=== PATIENT | male | born 1935 | race Caucasian/White ===

== ENCOUNTER 2017-02-23 13:50 | Emergency (ER) | payer OTHER, BC ==
[~2017-02-23] VITALS: Ht 165.1 cm; Wt 92.4 kg
[~2017-02-23 13:50] MED LIST: ASPI81TA21 PO; CRS/10 PO; DOXA2TAB PO; ENAL1TAB33 PO; ESOM40GR PO; FISHOIL PO; NSP/500 PO
[2017-02-23 13:58] VITALS: TEMP 36.4; Ht 165.1 cm; Wt 92.4 kg
[2017-02-23] MEDS ORDERED: DiphenhydrAMINE HCL 50 MG/ML VIAL IV STA (14:24)
[2017-02-23] MEDS ORDERED: RANITIDINE HCL 50 MG/100 ML D5W IV STA (14:24)
[2017-02-23] MEDS ORDERED: SODIUM CHLORIDE 0.9% 1000ML 1,000 ML IV STA (14:24)
[2017-02-23 14:26] VITALS: O2SAT 98
--- NOTE | 2017-02-23 14:54 | EMERGENCY ROOM VISIT NOTE ---
ED Visit Note First contact with patient: 14:15 I have personally seen and evaluated the patient with the PA. I agree with the diagnosis and management decisions and have been personally involved in the case. Please see MARCE Mccracken's notes for further details of the history, physical and visit.
--- NOTE | 2017-02-23 16:50 | EMERGENCY ROOM VISIT NOTE ---
ED Visit Note First contact with patient: 14:15 CHIEF COMPLAINT: Allergic reaction HISTORY OF PRESENT ILLNESS: This 81-year-old male patient presents to the emergency department after they developed sudden onset of redness and itching on the left forearm after being stung by a hornet at 1 PM today. 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 He did not use his EpiPen today. The patient does not have swelling of the face and lips and does not have a sensation of swelling in the throat. The patient has not had shortness of breath. Has had previous reactions and like this before, but states this time is not as bad because he came straight to the ER and did not wait. The patient has tried no medications prior to arrival. There has been no change in the patient's soaps, detergents, foods, medications, or other environmental factors. REVIEW OF SYSTEMS: A review of systems was performed with positives and pertinent negatives listed in the history of present illness. All other systems were reviewed and are negative. ALLERGIES: See chart MEDICATIONS: See chart PMH: See chart SOCIAL HISTORY: , lives with . Denies tobacco, alcohol, illicit drug use. PHYSICAL EXAM:VITALS: Vitals are noted on the nurse's note and reviewed by myself. Vital signs stable. GENERAL: Pleasant and cooperative, in no acute distress, nondiaphoretic, well- developed well-nourished. THROAT: No pharyngeal edema or injection, no exudates or tonsillar hypertrophy. Airway patent. LUNGS: Clear to auscultation and breath sounds equal, no wheezes, rales, stridor, or rhonchi. EYES: PERRLA, EOMI, no discharge or injection. NEUROLOGICAL: Alert and oriented to person, place, and time. Normal sensation to light and sharp touch. HEART: Regular rate without murmurs, ectopy, gallops, or rubs. SKIN: There is a bee sting site noted to the left anterior forearm with surrounding erythema and edema, nontender to palpation, approximately 10 cm x 7 cm, no drainage. The lips are not swollen. There is no periorbital swelling. No other hives or rashes noted to the skin. EMERGENCY DEPARTMENT COURSE: I examined the patient. Differential diagnosis includes allergic reaction, hives, anaphylaxis. The patient was given IV access , treated with IV fluid bolus, IV Benadryl, and IV ranitidine. On reassessment , the patient felt much improved and was noted to have full resolution of erythema on the left forearm. He continues to have a patent airway with no complaints of shortness of breath, facial or oral swelling, or throat tightness. The patient was discharged home in stable condition with plans for close PCP follow-up and strict return precautions, he verbalized understanding. Patient was discussed with Dr. Alicea, who agreed with my assessment and plan. Problem List Medical Problems: (1) Hyperlipemia Status: Chronic (2) Hypertension Status: Chronic Current/Historical Medications Scheduled Aspirin Enteric Coated (Ecotrin Or Generic), 162 MG PO DAILY Doxazosin Mesylate (Cardura), 2 MG PO DAILY Enalapril Maleate (Vasotec), 5 MG PO DAILY Esomeprazole Magnesium (Nexium), 40 MG PO DAILY Fish Oil ([place]-3), 2 CAP PO BID Rosuvastatin Calcium (Crestor), 10 MG PO DAILY Allergies Coded Allergies: BEE STING (Unverified Allergy, Severe, SWELLING, 02/23/17) Wasp (Unverified Allergy, Unknown, ANAPHYLAXIS, 02/23/17) Vital Signs Date Time Temp Pulse Resp B/P Pulse Ox O2 Delivery O2 Flow Rate FiO2 02/23/17 14:40 61 16 167/79 98 Room Air 02/23/17 14:37 64 02/23/17 14:26 98 Room Air 02/23/17 14:25 98 Room Air 02/23/17 13:58 36.4 66 20 177/82 95 Room Air Medications Administered Medications (Trade) Dose Ordered Sig/Hugo Route Start Time Stop Time Status Last Admin Dose Admin Ranitidine HCl 50 mg 50 mg NOW STAT IV 02/23/17 14:24 02/23/17 14:28 DC 02/23/17 14:44 50 MG Sodium Chloride (Nss 1000ml) 1,000 ml @ 999 mls/hr Q1H1M STAT IV 02/23/17 14:24 02/23/17 15:24 DC 02/23/17 14:43 999 MLS/HR Diphenhydramine HCl (Benadryl Inj) 50 mg NOW STAT IV 02/23/17 14:24 02/23/17 14:28 DC 02/23/17 14:43 50 MG Departure Information Impression Primary Impression: Allergic reaction to bee sting Dispostion Home / Self-Care Condition GOOD Referrals Trevor Kumar M.D. (PCP) Patient Instructions ED Allergic Reaction Local Other, My [facility] Additional Instructions Continue to take Benadryl 50 mg every 6 hrs as needed for itching/rash. Keep cool - no hot showers. Follow-up with your family doctor in the next few days to be reevaluated, and also to have your blood pressure rechecked, sooner if symptoms persist. Please return to the ER for any worsening symptoms, including chest pain or chest tightness, shortness of breath, wheezing, throat tightness, facial or oral swelling, severe dizziness or passing out, if you break out in hives or rash all over, fever/chills, or any other concerns.
[2017-02-23 17:14] VITALS: BP 171/87; PULSE 56; O2SAT 97
== END 2017-02-23 17:15 | disposition home or self-care (01) ==
LOC: C.EDB 13:52 → C.EDD 17:15
DX: T63.441A Toxic effect of venom of bees, accidental (unintentional), initial encounter (principal); Z91.030 Bee allergy status; E78.5 Hyperlipidemia, unspecified; I10 Essential (primary) hypertension; Z79.82 Long term (current) use of aspirin; Z79.899 Other long term (current) drug therapy

== ENCOUNTER 2017-10-18 16:39 | Inpatient (IN) | payer OTHER, BC ==
[~2017-10-18] VITALS: Ht 165.1 cm; Wt 93.0 kg
[~2017-10-18 16:39] MED LIST changes: -NSP/500 PO
[2017-10-18] MEDS ORDERED: CHOL1000 PO (17:01)
[2017-10-18] MEDS ORDERED: FURO-85 PO (17:01)
[2017-10-18] MEDS ORDERED: SODIUM CHLORIDE 0.9% 1000ML 1,000 ML IV STA ×2 (17:04)
--- NOTE | 2017-10-18 17:27 | DIAGNOSTIC IMAGING REPORT ---
CHEST ONE VIEW PORTABLE HISTORY: 81 years-old Male EVALUATE ALTERED MENTAL STATUS/WEAKNESS acute altered mental status COMPARISON: CT 01/17/2012 TECHNIQUE: Portable AP view of the chest FINDINGS: Cardiac silhouette is moderately enlarged, unchanged. Atherosclerosis and tortuosity of the aorta. No pneumothorax, pleural effusion, focal airspace consolidation or overt pulmonary edema. Degenerative changes are seen within the shoulders and spine. IMPRESSION: No acute process. The above report was generated using voice recognition software. It may contain grammatical, syntax or spelling errors. Electronically signed by: Gui Manzo M.D. 10/18/2017 5:26 PM Dictated Date/Time: 10/18/2017 5:25 PM
[2017-10-18 17:42] LABS: EOS % 0.5 %; EOS ABS # 0.04 K/uL (0-0.5); HEMATOCRIT 29.7 % (42-52); HEMOGLOBIN 10.6 g/dL (14.0-18.0); IG# 0.02 K/uL (0.00-0.02); LYMPH % 11.1 %; LYMPH ABS # 0.88 K/uL (1.2-3.4); MEAN CELL VOLUME 90.3 fL (80-100); MEAN CORPUSCULAR HEMOGLOBIN 32.2 pg (25-34); MEAN CORPUSCULAR HGB CONC 35.7 g/dl (32-36); MEAN PLATELET VOLUME 9.4 fL (7.4-10.4); MONO % 6.6 %; MONO ABS # 0.52 K/uL (0.11-0.59); NEUT % 81.5 %; NEUT ABS # 6.47 K/uL (1.4-6.5); PLATELET COUNT 190 K/uL (130-400); RED CELL DISTRIBUTION WIDTH CV 14.3 % (11.5-14.5); RED CELL DISTRIBUTION WIDTH SD 47.2 fL (36.4-46.3); WHITE BLOOD COUNT 7.93 K/uL (4.8-10.8)
[2017-10-18 17:55] LABS: ALBUMIN 3.6 gm/dl (3.4-5.0); CREATININE 1.37 mg/dl (0.60-1.40); POTASSIUM 3.7 mmol/L (3.5-5.1)
[2017-10-18 17:58] LABS: PTT PATIENT 20.6 SECONDS (21.0-31.0)
[2017-10-18 18:06] LABS: TOTAL PROTEIN 6.3 gm/dl (6.4-8.2)
[2017-10-18] MEDS ORDERED: CEFTRIAXONE SOD INJ 1 GM ADDVIAL IV STA ×2 (18:33→19:10)
[2017-10-18] MEDS ORDERED: OPTIRAY 320 IV PRN (19:00)
[2017-10-18] MEDS ORDERED: SODIUM CHLORIDE 0.9% 1000ML 1,000 ML IV SCH (20:02)
[2017-10-18] MEDS ORDERED: ENAL10TA PO (20:11)
[2017-10-18] MEDS ORDERED: ROSU20TA PO (20:11)
[2017-10-18] MEDS ORDERED: HYDR12.56 PO (20:11)
[2017-10-18] MEDS ORDERED: ASCO1CAP3 PO (20:11)
[2017-10-18] MEDS ORDERED: DIPH25CA65 PO (20:11)
[2017-10-18] MEDS ORDERED: EPP3/2 IM (20:11)
--- NOTE | 2017-10-18 20:12 | DIAGNOSTIC IMAGING REPORT ---
(CHEST FOR PE) ANGIO WITH CT DOSE: 571.22 mGy.cm HISTORY: Chest pain dyspnea TECHNIQUE: Multiaxial CT images of the chest were performed following the intravenous administration of contrast to evaluate the pulmonary arteries. Maximal intensity projection images were also obtained. A dose lowering technique was utilized adhering to the principles of ALARA. COMPARISON STUDY: None. FINDINGS: Moderate atherosclerotic change thoracic aorta. No evidence for aneurysm or dissection. Her pulmonary vasculature enhances appropriately. No filling defects. Lungs are clear. Fixed hiatal hernia. Minimal chronic pleural reactive change posterior gastric angles. Instill note is made of several gallstones within the gallbladder neck region. IMPRESSION: 1. No evidence for pulmonary embolus. 2. Lungs are clear. 3. Several gallstones within the gallbladder neck region. The above report was generated using voice recognition software. It may contain grammatical, syntax or spelling errors. Electronically signed by: Kumar Mock M.D. 10/18/2017 8:11 PM Dictated Date/Time: 10/18/2017 8:08 PM
[2017-10-18] MEDS ORDERED: ACETAMINOPHEN 325 MG TAB PO PRN (20:15)
[2017-10-18] MEDS ORDERED: ONDANSETRON INJ 2 MG/ML 2 ML VIAL IV PRN (20:15)
[2017-10-18] MEDS ORDERED: POLYETHYLENE (MIRALAX) 17 GM PACK PO PRN (20:15)
[2017-10-18] MEDS ORDERED: NITROGLYCERIN 0.4 MG SL PER TAB CHARGE SL PRN (20:15)
[2017-10-18] MEDS ORDERED: ALUMINUM/MAGNESIUM/SIMETH (MAALOX MAX) 30 ML UDC PO PRN (20:15)
[2017-10-18 20:58] VITALS: O2SAT 98
[2017-10-18 21:33] VITALS: Ht 165.1 cm; Wt 93.0 kg
[2017-10-18 22:07] VITALS: BP 157/71; PULSE 63; TEMP 36.6; O2SAT 98
--- NOTE | 2017-10-18 22:12 | DIAGNOSTIC IMAGING REPORT ---
VENOUS DOPPLER LWR EXT BILA HISTORY: Pain. Edema. dvt? COMPARISON STUDY: None. FINDINGS: There is normal compressibility, flow, and augmentation within the bilateral lower extremity deep venous systems. IMPRESSION: No DVT within the right or left lower extremity. The above report was generated using voice recognition software. It may contain grammatical, syntax or spelling errors. Electronically signed by: Kumar Mock M.D. 10/18/2017 10:11 PM Dictated Date/Time: 10/18/2017 10:11 PM
--- NOTE | 2017-10-18 22:14 | DIAGNOSTIC IMAGING REPORT ---
GALLBLADDER-ABD LIMITED CLINICAL HISTORY: gallstones. cholecystistyis? Pain. Nausea. TECHNIQUE: Ultrasound COMPARISON STUDY: None FINDINGS: Several small gallstones in the region of the gallbladder neck. Normal gallbladder wall thickness at 2 mm. Common bile duct 5 mm. Fatty infiltration of liver. Poor visibility of the pancreas due to overlying bowel content. Right kidney is negative for hydronephrosis. 3 cm lower pole cyst. IMPRESSION: 1. Several small gallstones. 2. Normal caliber bile ducts. 3. Fatty infiltration of liver. 4. 3 cm lower pole right renal cyst. The above report was generated using voice recognition software. It may contain grammatical, syntax or spelling errors. Electronically signed by: Kumar Mock M.D. 10/18/2017 10:13 PM Dictated Date/Time: 10/18/2017 10:11 PM
[2017-10-18] MEDS: CHOLECALCIFEROL 1000 INTER.UNIT TAB PO SCH (22:26)
[2017-10-18] MEDS: OMEGA-3 (PURIFIED FISH OIL) 1 GM CAP PO SCH (22:26)
--- NOTE | 2017-10-18 22:50 | EMERGENCY ROOM VISIT NOTE ---
History Report prepared by Rufus: Shoaib Gusman Under the Supervision of: Jermain BucioO. First contact with patient: 16:49 Chief Complaint: HYPOTENSION Stated Complaint: SOB, DIZZY History of Present Illness The patient is an 81 year old male who presents to the Emergency Room with complaints of an episode of near syncope occurring today. The patient states that he was working out today doing cardio. He notes that he went into the sauna , and then showered before getting dressed. He notes that when he was getting dressed, he began feeling lightheaded, SOB, dizzy, fatigued, and sweaty. He reports that he took 2 nitro tablets following his episode, and also now has a mild headache. The patient states that he did not pass out. He denies taking any aspirin. He notes that he has a cardiac stent in place. He reports that his last stress test was a year ago. Pt denies change in vision, fevers, chest pain, nausea, vomiting, diarrhea, pain with urination, and melena. Source of History: patient Onset: today Position: other (global) Quality: other (near syncope) Timing: other (an episode ) Associated Symptoms: + headache (mild), + diaphoresis, + SOB, + fatigue, No LOC, No fevers, No chest pain, No nausea, No vomiting, No diarrhea, No urinary symptoms Note: He complains of lightheadedness and dizziness. Review of Systems See HPI for pertinent positives & negatives. A total of 10 systems reviewed and were otherwise negative. Past Medical & Surgical Medical Problems: (1) Hyperlipemia (2) Hypertension (3) Hypotension (4) Pre-syncope Surgical Problems: (1) H/O heart artery stent Family History Cancer Kidney disease Kidney stones Social History Smoking Status: Never Smoker Alcohol Use: none Drug Use: none Marital Status: Occupation Status: retired Current/Historical Medications Scheduled Ascorbic Acid (Vitamin C), 500 MG PO DAILY Aspirin Enteric Coated (Ecotrin Or Generic), 162 MG PO DAILY Cholecalciferol (Vitamin D3), 1,000 INTER.UNIT PO QPM Doxazosin Mesylate (Cardura), 2 MG PO DAILY Enalapril Maleate (Vasotec), 1 TAB PO DAILY Esomeprazole Magnesium (Nexium), 40 MG PO DAILY Fish Oil ([place]-3), 2 CAP PO BID Hydrochlorothiazide (Hctz), 1 CAP PO 3XWK Rosuvastatin Calcium (Crestor), 1 TAB PO DAILY Scheduled PRN Diphenhydramine Hcl (Benadryl Allergy), 2 CAP PO one PRN for Allergic Reaction Epinephrine (Epipen), 0.3 MG IM UD PRN for Allergic Reaction Furosemide (Lasix), 20 MG PO DAILY PRN for PRN Allergies Coded Allergies: BEE STING (Unverified Allergy, Severe, SWELLING, 10/18/17) Wasp (Unverified Allergy, Unknown, ANAPHYLAXIS, 10/18/17) Physical Exam Vital Signs Date Time Temp Pulse Resp B/P (MAP) Pulse Ox O2 Delivery O2 Flow Rate FiO2 10/18/17 18:42 53 18 150/68 99 Room Air 10/18/17 18:00 59 18 125/59 97 Room Air 80 136/59 67 87/64 10/18/17 17:32 58 10/18/17 17:28 96 Room Air 10/18/17 16:44 36.6 64 16 114/61 95 Room Air Physical Exam GENERAL: Sitting up in bed, alert, well appearing, well nourished, no distress, non-toxic EYE EXAM: normal conjunctiva. PERRL and EOM's intact. OROPHARYNX: no exudate, no erythema, lips, buccal mucosa, and tongue normal and mucous membranes are moist NECK: supple, no nuchal rigidity, no adenopathy, non-tender LUNGS: Clear to auscultation. Normal chest wall mechanics HEART: no murmurs, S1 normal and S2 normal ABDOMEN: abdomen soft, non-tender, normo-active bowel sounds, no masses, no rebound or guarding. BACK: Back is symmetrical on inspection and there is no deformity, no midline tenderness, no CVA tenderness. SKIN: no rashes and no bruising UPPER EXTREMITIES: upper extremities are grossly normal. LOWER EXTREMITIES: No pitting edema. NEURO EXAM: Normal sensorium, cranial nerves II-XII intact, normal speech, no weakness of arms, no weakness of legs. No drift. Finger to nose intact. Gross sensation intact. Medical Decision & Procedures ER Provider Diagnostic Interpretation: Radiology results as stated below per my review and the radiologist's interpretation: CHEST ONE VIEW PORTABLE HISTORY: 81 years-old Male EVALUATE ALTERED MENTAL STATUS/WEAKNESS acute altered mental status COMPARISON: CT 01/17/2012 TECHNIQUE: Portable AP view of the chest FINDINGS: Cardiac silhouette is moderately enlarged, unchanged. Atherosclerosis and tortuosity of the aorta. No pneumothorax, pleural effusion, focal airspace consolidation or overt pulmonary edema. Degenerative changes are seen within the shoulders and spine. IMPRESSION: No acute process. The above report was generated using voice recognition software. It may contain grammatical, syntax or spelling errors. Electronically signed by: Gui Manzo M.D. 10/18/2017 5:26 PM (CHEST FOR PE) ANGIO WITH CT DOSE: 571.22 mGy.cm HISTORY: Chest pain dyspnea TECHNIQUE: Multiaxial CT images of the chest were performed following the intravenous administration of contrast to evaluate the pulmonary arteries. Maximal intensity projection images were also obtained. A dose lowering technique was utilized adhering to the principles of ALARA. COMPARISON STUDY: None. FINDINGS: Moderate atherosclerotic change thoracic aorta. No evidence for aneurysm or dissection. Her pulmonary vasculature enhances appropriately. No filling defects. Lungs are clear. Fixed hiatal hernia. Minimal chronic pleural reactive change posterior gastric angles. Instill note is made of several gallstones within the gallbladder neck region. IMPRESSION: 1. No evidence for pulmonary embolus. 2. Lungs are clear. 3. Several gallstones within the gallbladder neck region. The above report was generated using voice recognition software. It may contain grammatical, syntax or spelling errors. Electronically signed by: Kumar Mock M.D. 10/18/2017 8:11 PM Laboratory Results 10/18/17 17:28 Red Blood Count 3.29, Mean Corpuscular Volume 90.3, Mean Corpuscular Hemoglobin 32.2, Mean Corpuscular Hemoglobin Concent 35.7, Mean Platelet Volume 9.4, Neutrophils (%) (Auto) 81.5, Lymphocytes (%) (Auto) 11.1, Monocytes (%) (Auto) 6.6, Eosinophils (%) (Auto) 0.5, Basophils (%) (Auto) 0.0, Neutrophils # (Auto) 6.47, Lymphocytes # (Auto) 0.88, Monocytes # (Auto) 0.52, Eosinophils # (Auto) 0.04, Basophils # (Auto) 0.00 10/18/17 17:28 Test 10/18/17 17:20 10/18/17 17:10/18/17 18:00 Bedside Glucose 105 mg/dl (70-99) White Blood Count 7.93 K/uL (4.8-10.8) Red Blood Count 3.29 M/uL (4.7-6.1) Hemoglobin 10.6 g/dL (14.0-18.0) Hematocrit 29.7 % (42-52) Mean Corpuscular Volume 90.3 fL (80-100) Mean Corpuscular Hemoglobin 32.2 pg (25-34) Mean Corpuscular Hemoglobin Concent 35.7 g/dl (32-36) Platelet Count 190 K/uL (130-400) Mean Platelet Volume 9.4 fL (7.4-10.4) Neutrophils (%) (Auto) 81.5 % Lymphocytes (%) (Auto) 11.1 % Monocytes (%) (Auto) 6.6 % Eosinophils (%) (Auto) 0.5 % Basophils (%) (Auto) 0.0 % Neutrophils # (Auto) 6.47 K/uL (1.4-6.5) Lymphocytes # (Auto) 0.88 K/uL (1.2-3.4) Monocytes # (Auto) 0.52 K/uL (0.11-0.59) Eosinophils # (Auto) 0.04 K/uL (0-0.5) Basophils # (Auto) 0.00 K/uL (0-0.2) RDW Standard Deviation 47.2 fL (36.4-46.3) RDW Coefficient of Variation 14.3 % (11.5-14.5) Immature Granulocyte % (Auto) 0.3 % Immature Granulocyte # (Auto) 0.02 K/uL (0.00-0.02) Activated Partial Thromboplast Time 20.6 SECONDS (21.0-31.0) Partial Thromboplastin Ratio 0.8 D-Dimer 960 ug/L FEU (0-500) Anion Gap 7.0 mmol/L (3-11) Est Creatinine Clear Calc Drug Dose 45.4 ml/min Estimated GFR () 56.1 Estimated GFR (Non- 48.4 BUN/Creatinine Ratio 16.2 (10-20) Calcium Level 9.0 mg/dl (8.5-10.1) Total Bilirubin 0.7 mg/dl (0.2-1) Direct Bilirubin 0.2 mg/dl (0-0.2) Aspartate Amino Transf (AST/SGOT) 14 U/L (15-37) Alanine Aminotransferase (ALT/SGPT) 26 U/L (12-78) Alkaline Phosphatase 47 U/L (45-117) Troponin I 0.021 ng/ml (0-0.045) Total Protein 6.3 gm/dl (6.4-8.2) Albumin 3.6 gm/dl (3.4-5.0) Thyroid Stimulating Hormone (TSH) 1.670 uIu/ml (0.300-4.500) Urine Color DK YELLOW Urine Appearance CLOUDY (CLEAR) Urine pH 5.0 (4.5-7.5) Urine Specific [place] 1.024 (1.000-1.030) Urine Protein 1+ (NEG) Urine Glucose (UA) NEG (NEG) Urine Ketones TRACE (NEG) Urine Occult Blood TRACE (NEG) Urine Nitrite NEG (NEG) Urine Bilirubin NEG (NEG) Urine Urobilinogen NEG (NEG) Urine Leukocyte Esterase MODERATE (NEG) Urine WBC (Auto) 10-30 /hpf (0-5) Urine RBC (Auto) 0-4 /hpf (0-4) Urine Hyaline Casts (Auto) >30 /lpf (0-5) Urine Epithelial Cells (Auto) >30 /lpf (0-5) Urine Bacteria (Auto) NEG (NEG) Urine Renal Epithelial Cells 0-5 /lpf (0-5) Urine Pathogenic Casts 1-5 WBC CASTS /lpf (0) Laboratory results per my review. Medications Administered Medications (Trade) Dose Ordered Sig/Hugo Route Start Time Stop Time Status Last Admin Dose Admin Sodium Chloride 1,000 ml @ 999 mls/hr Q1H1M STAT IV 10/18/17 17:04 10/18/17 18:05 DC 10/18/17 18:07 999 MLS/HR Sodium Chloride 1,000 ml @ 999 mls/hr Q1H1M STAT IV 10/18/17 17:04 10/18/17 18:05 DC 10/18/17 18:07 999 MLS/HR Ceftriaxone Sodium (Rocephin Inj) 1 gm NOW STAT IV 10/18/17 18:33 10/18/17 18:34 DC 10/18/17 18:38 1 GM Sodium Chloride 1,000 ml @ 50 mls/hr Q20H IV 10/18/17 20:02 11/17/17 20:01 10/18/17 22:34 50 MLS/HR ECG Indication: syncope Rate (beats per minute): 65 Rhythm: sinus rhythm Findings: 1st degree AV block, other (Normal axis) ED Course ED COURSE: Vital signs were reviewed and showed that the patient was situationally hypertensive. The patients medical record was reviewed The above diagnostic studies were performed and reviewed. ED treatments and interventions as stated above. 1650: The patient was evaluated in room C5. A complete history and physical examination was performed. 1703: Sodium Chloride 1000 ml @ 999 mls/hr IV x2 1830: I reevaluated and updated the patient. He still feels weak and will be brought in. 1832: Rocephin Inj 1gm IV 1836: Upon reevaluation, the patient is stable. I discussed my findings with the patient and he understands and agrees with the treatment plan. Based on the patients age, coexisting illnesses, exam and lab findings the decision to treat as an inpatient was made. I discussed the patient's case with Dr. Freeman - HospitalistDeborah. The patient remained stable while under my care. The patient will be evaluated for further management. 1909: Rocephin Inj 1gm IV 1932: I reevaluated the patient. He is still in CT. Medical Decision Differential diagnosis includes etiologies such as vasovagal event, infection, hypoglycemia, electrolyte abnormalities, cardiac sources, intracerebral event, toxicologic, neurologic, as well as others were entertained. Patient is an 81-year-old male with a past history of 1 stent who presents to ER for exertional shortness of breath following working out. He notes he was in the locker room and became very short of breath and dizzy and lightheaded. Labs show a mild anemia. BMP all LFTs, bilirubin and TSH was unremarkable. Troponin was detectable but not positive. EKG was unremarkable. D-dimer was positive at CT PE was performed was unremarkable. UA was contaminated but in the mail I did elect to treat with Rocephin. Patient was neurologically intact. He was intermittently hypotensive. He was given fluids IV. He did feel significant better. He was also orthostatic following the fluids. Based on his near syncopal event, and hypotension with his age we did elect to watch him overnight after discussion with the patient and family. Medication Reconcilliation Current Medication List: was personally reviewed by me Blood Pressure Screening Patient's blood pressure: Elevated blood pressure Blood pressure disposition: Elevated BP felt to be situational Consults Time Called: 1833 Consulting Physician: Dr. Freeman - HospitalistDeborah Returned Call: 1836 I reviewed the patient's case with Dr. Freeman. She will evaluate the patient for further management. Impression Primary Impression: SOB (shortness of breath) on exertion Additional Impressions: Lightheadedness Orthostatic hypertension UTI (urinary tract infection) Anemia Scribe Attestation The scribe's documentation has been prepared under my direction and personally reviewed by me in its entirety. I confirm that the note above accurately reflects all work, treatment, procedures, and medical decision making performed by me. Departure Information Dispostion Being Evaluated By Hospitalist Prescriptions Ascorbic Acid (VITAMIN C) 500 Mg Cap 500 MG PO DAILY, #30 Prov: Otis Smith MD 10/18/17 Epinephrine (EPIPEN) 0.3 Mg/0.3 Ml Inj 0.3 MG IM UD Y for Allergic Reaction, #1 BOX Prov: Otis Smith MD 10/18/17 Diphenhydramine Hcl (BENADRYL ALLERGY) 25 Mg Cap 2 CAP PO one Y for Allergic Reaction for 30 Days, #30 CAP 1 Refill Prov: Otis Smith MD 10/18/17 Enalapril Maleate (VASOTEC) 10 Mg Tab 1 TAB PO DAILY for 30 Days, #30 TAB 5 Refills Prov: Otis Smith MD 10/18/17 Rosuvastatin Calcium (CRESTOR) 20 Mg Tab 1 TAB PO DAILY for 30 Days, #30 TAB 5 Refills Prov: Otis Smith MD 10/18/17 Hydrochlorothiazide (HCTZ) 12.5 Mg Cap 1 CAP PO 3XWK for 30 Days, CAP 5 Refills Prov: Otis Smith MD 10/18/17 Referrals Trevor Kumar M.D. (PCP) Patient Instructions My [facility] Problem Qualifiers Additional Impressions: UTI (urinary tract infection) Urinary tract infection type: site unspecified Hematuria presence: without hematuria Qualified Codes: N39.0 - Urinary tract infection, site not specified Anemia Anemia type: unspecified type Qualified Codes: D64.9 - Anemia, unspecified
[2017-10-18] MEDS ORDERED: IV FLUIDS COMPLETED PRN (23:15)
[2017-10-19] VITALS (8 sets, daily range): BP systolic 126–163; BP diastolic 64–82; PULSE 54–94; TEMP 36.5–37; O2SAT 95–98
--- NOTE | 2017-10-19 00:46 | HISTORY & PHYSICAL EXAMINATION ---
DATE OF ADMISSION: 10/18/2017 CHIEF COMPLAINT: Presyncope. 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 The patient goes to gym 3 times a week and today after the exercise on treadmill electrical and cycling for about half an hour, he went to take shower. After shower, he was sitting on a bench when he suddenly felt almost passing out, he felt dizzy, was profusely sweating and felt like almost passing out. He did not feel good, then his friend went and called the EMS. He had about 8-year-old nitro tablets in his bag, which he took 2 of them and after getting into the ambulance, he felt okay. Right now resting comfortably. When he came in, his blood pressure was low in 80s with the fluid boluses it came up. Urinalysis done in the ER also showed some positive possible UTI. The patient says about 5 days ago he had some burning micturition, but that went away. He is feeling chilly now. Denies any chest pain, no shortness of breath, no cough, no sore throat, no difficulty swallowing. No runny nose. No earache, no blurred vision, no headaches. He had some headache earlier, but gone now. Currently not dizzy. No nausea, no vomiting, no abdominal pain. Normal bowel and bladder movements. Appetite is okay. No blood in the stool, no blood in the urine. Denies any fevers. He also developed lower extremity edema about 6 months ago and he is taking Lasix as needed. He takes about 1 tablet every 3 weeks and the last time he took was yesterday. ALLERGIES: BEE VENOM. PAST MEDICAL HISTORY: As mentioned above. PAST SURGICAL HISTORY: Spine surgery, cystoscopy with stent placement and cystoscopy with stent removal, cataract surgeries, total hip replacement, upper endoscopy, cardiac catheterization with status post stent placement. MEDICATIONS: Currently the patient is on Crestor 20 mg p.o. daily, VESIcare 10 mg p.o. daily, Cardura 2 mg p.o. daily, Nexium 40 mg p.o. daily, epinephrine p.r.n., Benadryl p.r.n., omega 3 fatty acids 1 capsule b.i.d., vitamin D 1000 units p.o. daily, aspirin 162 mg p.o. daily, vitamin C 500 mg p.o. daily. FAMILY HISTORY: Significant for father at the age of 81 of renal failure. Mother had uterine cancer, in the age of 40. Sister at the age of 60. Sister of breast cancer. Brother of CAD and had CABG. Another brother had pacemaker. SOCIAL HISTORY: , no smoking history. Alcohol rarely. No drug use. REVIEW OF SYMPTOMS: As per HPI. Rest of review of symptoms negative. PHYSICAL EXAMINATION: GENERAL: The patient is obese, not in distress. VITAL SIGNS: Temperature 36.8, pulse 64, respiratory rate 18, blood pressure was standing 87/64, supine 125/59, oxygen 99% room air. HEENT: No pallor, no icterus. Pupils equal, round, and reactive to light. NECK: No JVD, no neck masses, no carotid bruits. CARDIOVASCULAR: S1, S2 heard, regular rate and rhythm, no murmur, no gallop. RESPIRATORY SYSTEM: Normal AP diameter. No accessory muscle use. No wheezing, no crackles. ABDOMEN: Soft, bowel sounds present. Nontender. No distention. CENTRAL NERVOUS SYSTEM: Cranial nerves II-XII grossly intact. Nonfocal. EXTREMITIES: Lower extremity +2 edema present. No erythema seen. LABORATORY DATA: WBC 7.9, hemoglobin 10.6, hematocrit 29.7, platelets 190. Sodium 138, potassium 3.7, chloride 106, BUN 22, creatinine 1.3, serum glucose 105, calcium 9.0, total bilirubin 0.7, direct bilirubin 0.2, AST 14, ALT 26, alkaline phosphatase 47. Troponin 1 less than 0.02. TSH 1.6. Urinalysis positive for leukocyte esterase. . D-dimer 960. Chest x-ray: No acute process seen. EKG: Shows normal sinus rhythm with first degree AV block at a rate of 65. Nonspecific ST wave abnormalities, no acute ST changes seen. ASSESSMENT AND PLAN: This is an 81-year-old male who presents with presyncope. 1. Presyncope, possibly from orthostatics. The patient takes Lasix once every week, last was yesterday. This happened after exercise. The patient also has history of coronary artery disease status post stent and also lower extremity edema. We will observe on tele floor, on gentle fluids, serial cardiac enzymes, echocardiogram and consult cardiology for further recommendations. 2. Hypertension, Vasotec with holding parameters. 3. Benign prostatic hypertrophy. Continue Cardura. 4. Gastroesophageal reflux disease. Continue Nexium. 5. Hyperlipidemia. Continue statin. We will follow the fasting lipid profile. 6. Lower extremity edema. The patient is on Lasix as needed but he states he takes once a week. Will follow the echocardiogram 7. Obesity. The patient says he snores in the night, so we will check a nocturnal pulse ox study, may need sleep study as an outpatient. 8. Anemia. Hemoglobin 10.6. We will do the iron studies and stool for Hemoccult. Needs to follow for outpatient for colonoscopy . 9. UTI IV Rocephin and follow cultures. 9. Deep venous thrombosis prophylaxis, SCDs for now. 10. Disposition: Admit to tele floor. Expect to discharge home and follow with his family doctor. Level 1 full code. MTDD
[2017-10-19 04:27] LABS: BASO % 0.2 %; BASO ABS # 0.01 K/uL (0-0.2); EOS % 1.1 %; EOS ABS # 0.07 K/uL (0-0.5); HEMOGLOBIN 10.2 g/dL (14.0-18.0); IG# 0.02 K/uL (0.00-0.02); LYMPH % 23.8 %; LYMPH ABS # 1.58 K/uL (1.2-3.4); MEAN CELL VOLUME 91.5 fL (80-100); MEAN CORPUSCULAR HEMOGLOBIN 32.2 pg (25-34); MEAN CORPUSCULAR HGB CONC 35.2 g/dl (32-36); MEAN PLATELET VOLUME 9.4 fL (7.4-10.4); MONO % 7.2 %; MONO ABS # 0.48 K/uL (0.11-0.59); NEUT % 67.4 %; NEUT ABS # 4.47 K/uL (1.4-6.5); PLATELET COUNT 188 K/uL (130-400); RED CELL DISTRIBUTION WIDTH CV 14.5 % (11.5-14.5); RED CELL DISTRIBUTION WIDTH SD 48.3 fL (36.4-46.3); WHITE BLOOD COUNT 6.63 K/uL (4.8-10.8)
[2017-10-19 04:53] LABS: CALCIUM 8.2 mg/dl (8.5-10.1); CREATININE 1.08 mg/dl (0.60-1.40); POTASSIUM 3.6 mmol/L (3.5-5.1)
[2017-10-19 05:51] LABS: HEMOGLOBIN A1C 4.5 % (4.5-5.6)
--- NOTE | 2017-10-19 05:58 | Clinical Documentation Query ---
Dr. GARCIA,JAILYN : CLINICAL DOCUMENTATION QUERY Patient is an 81 year old male presenting for evaluation of presyncope. H&P notes include "presyncope, possibly from orthostatics". This was after aerobic exercise, time spent in the sauna, and a shower. As appropriate, consider documentation as suggested below as this impacts DRG assignment and cannot be assumed by a professional benefits processor. Thank you. In your clinical opinion is this patient being managed for: ( ) Orthostatic hypotension ( ) Not Agree ( ) Other explanation of clinical findings (Please Explain) ( ) Unable to determine (Please Define) ( ) Need to Discuss The medical record reflects the following clinical findings, treatment, and risk factors. Clinical Indicators: As above Treatment: Telemetry, IVF Risk Factors: Aerobic activity, sauna use, hot shower, age Please clarify and document your clinical opinion in the progress notes and discharge summary. Terms such as "probable", "suspected", "likely", "questionable", "possible", or "still to be ruled out" are acceptable. IF IN AGREEMENT, YOU MUST DOCUMENT ABOVE DIAGNOSTIC STATEMENT IN DAILY PROGRESS NOTES AND DISCHARGE SUMMARY. This document is not part of the patient's record. Thank You, Eh Becker, RN [phone]
[2017-10-19] MEDS: ASPIRIN 81 MG ECTAB PO SCH (09:27)
[2017-10-19] MEDS: PANTOprazole SOD 40 MG TAB PO SCH (09:27)
[2017-10-19] MEDS: OMEGA-3 (PURIFIED FISH OIL) 1 GM CAP PO SCH ×2 (09:27→21:00)
[2017-10-19] MEDS: DOXAZosin MESYLATE TAB 2 MG TAB PO SCH (09:27)
[2017-10-19] MEDS: ASCORBIC ACID 500 MG TAB PO SCH (09:27)
[2017-10-19] MEDS: ROSUVASTATIN CALCIUM 20 MG TAB PO SCH (09:27)
[2017-10-19] MEDS: ENALAPRIL MALEATE 10 MG TAB PO SCH (09:27)
--- NOTE | 2017-10-19 10:22 | Progress Note ---
Medicine Progress Note Date & Time of Visit: Oct 19, 2017 at 10:04. Subjective 81 yoM with h/o CAD presented with presyncope yesterday; symptoms associated included profuse sweating, headache and some weakness. He reports a resolution of all symptoms this morning and has been eating dinner and breakfast. Orthostatics are negative this morning and BP is in the normal range after IVF overnight. He states that he feels he didn't eat prior to working out and wasn' t keeping up on his fluid intake as he should yesterday, possibly contributing to symptoms. Additionally, he reports working out TIW but states this is a new regimen that he began 2-3 weeks ago. He also reportedly took two nitro tabs that were 8 years old that hwe had in his bag and when EMS arrived, they found him to be somewhat hypotensive. He denies any new medications. He denies any chest pain or shortness of breath. He reports not walking around much this morning, but walking to and from bathroom did not provoke symptoms. He also reports dysuria one week ago that did not persist and denies all other UTI symptoms. Denies a h/o passing out. Of note, one dose of Rocephin was given in the ER. UA revealed contamination with +LE and +WBC but with >30 epis and no bacteria. Abx were not continued. Objective Last 8 Hrs Date Time Temp Pulse Resp B/P (MAP) Pulse Ox O2 Delivery O2 Flow Rate FiO2 10/19/17 07:26 36.6 57 18 151/66 (94) 95 Room Air 10/19/17 05:41 Room Air 10/19/17 04:00 Room Air 10/19/17 04:00 36.7 60 18 156/64 (94) 98 Room Air 66 146/78 (100) 66 158/77 (104) Physical Exam: GEN: obese, in no acute distress, alert and appropriate HEENT: NC/AT, PERRL, normal sclerae, MMM CARDIO: reg rate, S1/2 heard without m/g/r LUNGS: CTA bilaterally, no crackles, rales or wheezes, good diaphragmatic excursion ABD: soft, non-tender, non-distended, no rebound or guarding EXTREMITY: RP and DP palpable 2+ bilat, no LE swelling or edema, extremities are warm and well-perfused NEURO: CN 2-12 grossly intact, sensation intact throughout MUSC: 5/5 strength throughout, no gross focal deficits SKIN: warm and dry Laboratory Results: 10/19/17 04:08 Red Blood Count 3.17, Mean Corpuscular Volume 91.5, Mean Corpuscular Hemoglobin 32.2, Mean Corpuscular Hemoglobin Concent 35.2, Mean Platelet Volume 9.4, Neutrophils (%) (Auto) 67.4, Lymphocytes (%) (Auto) 23.8, Monocytes (%) (Auto) 7.2, Eosinophils (%) (Auto) 1.1, Basophils (%) (Auto) 0.2, Neutrophils # (Auto) 4.47, Lymphocytes # (Auto) 1.58, Monocytes # (Auto) 0.48, Eosinophils # (Auto) 0.07, Basophils # (Auto) 0.01 10/19/17 04:08 Test 10/18/17 17:20 10/18/17 17:28 10/18/17 18:00 10/19/17 04:08 Bedside Glucose 105 mg/dl (70-99) Activated Partial Thromboplast Time 20.6 SECONDS (21.0-31.0) Partial Thromboplastin Ratio 0.8 D-Dimer 960 ug/L FEU (0-500) Total Bilirubin 0.7 mg/dl (0.2-1) Direct Bilirubin 0.2 mg/dl (0-0.2) Aspartate Amino Transf (AST/SGOT) 14 U/L (15-37) Alanine Aminotransferase (ALT/SGPT) 26 U/L (12-78) Alkaline Phosphatase 47 U/L (45-117) Total Protein 6.3 gm/dl (6.4-8.2) Albumin 3.6 gm/dl (3.4-5.0) Thyroid Stimulating Hormone (TSH) 1.670 uIu/ml (0.300-4.500) Urine Color DK YELLOW Urine Appearance CLOUDY (CLEAR) Urine pH 5.0 (4.5-7.5) Urine Specific [place] 1.024 (1.000-1.030) Urine Protein 1+ (NEG) Urine Glucose (UA) NEG (NEG) Urine Ketones TRACE (NEG) Urine Occult Blood TRACE (NEG) Urine Nitrite NEG (NEG) Urine Bilirubin NEG (NEG) Urine Urobilinogen NEG (NEG) Urine Leukocyte Esterase MODERATE (NEG) Urine WBC (Auto) 10-30 /hpf (0-5) Urine RBC (Auto) 0-4 /hpf (0-4) Urine Hyaline Casts (Auto) >30 /lpf (0-5) Urine Epithelial Cells (Auto) >30 /lpf (0-5) Urine Bacteria (Auto) NEG (NEG) Urine Renal Epithelial Cells 0-5 /lpf (0-5) Urine Pathogenic Casts 1-5 WBC CASTS /lpf (0) White Blood Count 6.63 K/uL (4.8-10.8) Red Blood Count 3.17 M/uL (4.7-6.1) Hemoglobin 10.2 g/dL (14.0-18.0) Hematocrit 29.0 % (42-52) Mean Corpuscular Volume 91.5 fL (80-100) Mean Corpuscular Hemoglobin 32.2 pg (25-34) Mean Corpuscular Hemoglobin Concent 35.2 g/dl (32-36) Platelet Count 188 K/uL (130-400) Mean Platelet Volume 9.4 fL (7.4-10.4) Neutrophils (%) (Auto) 67.4 % Lymphocytes (%) (Auto) 23.8 % Monocytes (%) (Auto) 7.2 % Eosinophils (%) (Auto) 1.1 % Basophils (%) (Auto) 0.2 % Neutrophils # (Auto) 4.47 K/uL (1.4-6.5) Lymphocytes # (Auto) 1.58 K/uL (1.2-3.4) Monocytes # (Auto) 0.48 K/uL (0.11-0.59) Eosinophils # (Auto) 0.07 K/uL (0-0.5) Basophils # (Auto) 0.01 K/uL (0-0.2) RDW Standard Deviation 48.3 fL (36.4-46.3) RDW Coefficient of Variation 14.5 % (11.5-14.5) Immature Granulocyte % (Auto) 0.3 % Immature Granulocyte # (Auto) 0.02 K/uL (0.00-0.02) Anion Gap 7.0 mmol/L (3-11) Est Creatinine Clear Calc Drug Dose 57.6 ml/min Estimated GFR () 74.7 Estimated GFR (Non- 64.5 BUN/Creatinine Ratio 19.0 (10-20) Estimated Average Glucose 82 mg/dl Hemoglobin A1c 4.5 % (4.5-5.6) Calcium Level 8.2 mg/dl (8.5-10.1) Magnesium Level 2.0 mg/dl (1.8-2.4) Iron Level 65 mcg/dl (35-175) Total Iron Binding Capacity 352 mcg/dl (250-450) Transferrin 279 mg/dl (200-360) Transferrin % Saturation 17 % (20-50) Ferritin 34.6 ng/ml (8.0-388.0) Troponin I 0.035 ng/ml (0-0.045) Triglycerides Level 142 mg/dl (0-150) Cholesterol Level 125 mg/dl (0-200) HDL Cholesterol 38 mg/dl LDL Cholesterol, Calculated 59 mg/dl VLDL Cholesterol, Calculated 28 mg/dl Cholesterol/HDL Ratio 3.3 Vitamin B12 Level > 2000 pg/mL (211-911) Folate 20.08 ng/mL (>5.38) Last 24 Hours Test 10/18/17 17:20 10/18/17 17:28 10/18/17 18:00 10/19/17 04:08 Bedside Glucose 105 mg/dl White Blood Count 7.93 K/uL 6.63 K/uL Red Blood Count 3.29 M/uL 3.17 M/uL Hemoglobin 10.6 g/dL 10.2 g/dL Hematocrit 29.7 % 29.0 % Mean Corpuscular Volume 90.3 fL 91.5 fL Mean Corpuscular Hemoglobin 32.2 pg 32.2 pg Mean Corpuscular Hemoglobin Concent 35.7 g/dl 35.2 g/dl Platelet Count 190 K/uL 188 K/uL Mean Platelet Volume 9.4 fL 9.4 fL Neutrophils (%) (Auto) 81.5 % 67.4 % Lymphocytes (%) (Auto) 11.1 % 23.8 % Monocytes (%) (Auto) 6.6 % 7.2 % Eosinophils (%) (Auto) 0.5 % 1.1 % Basophils (%) (Auto) 0.0 % 0.2 % Neutrophils # (Auto) 6.47 K/uL 4.47 K/uL Lymphocytes # (Auto) 0.88 K/uL 1.58 K/uL Monocytes # (Auto) 0.52 K/uL 0.48 K/uL Eosinophils # (Auto) 0.04 K/uL 0.07 K/uL Basophils # (Auto) 0.00 K/uL 0.01 K/uL RDW Standard Deviation 47.2 fL 48.3 fL RDW Coefficient of Variation 14.3 % 14.5 % Immature Granulocyte % (Auto) 0.3 % 0.3 % Immature Granulocyte # (Auto) 0.02 K/uL 0.02 K/uL Activated Partial Thromboplast Time 20.6 SECONDS Partial Thromboplastin Ratio 0.8 D-Dimer 960 ug/L FEU Sodium Level 138 mmol/L 140 mmol/L Potassium Level 3.7 mmol/L 3.6 mmol/L Chloride Level 106 mmol/L 109 mmol/L Carbon Dioxide Level 25 mmol/L 24 mmol/L Anion Gap 7.0 mmol/L 7.0 mmol/L Blood Urea Nitrogen 22 mg/dl 21 mg/dl Creatinine 1.37 mg/dl 1.08 mg/dl Est Creatinine Clear Calc Drug Dose 45.4 ml/min 57.6 ml/min Estimated GFR () 56.1 74.7 Estimated GFR (Non- 48.4 64.5 BUN/Creatinine Ratio 16.2 19.0 Random Glucose 105 mg/dl 106 mg/dl Calcium Level 9.0 mg/dl 8.2 mg/dl Total Bilirubin 0.7 mg/dl Direct Bilirubin 0.2 mg/dl Aspartate Amino Transf (AST/SGOT) 14 U/L Alanine Aminotransferase (ALT/SGPT) 26 U/L Alkaline Phosphatase 47 U/L Troponin I 0.021 ng/ml 0.035 ng/ml Total Protein 6.3 gm/dl Albumin 3.6 gm/dl Thyroid Stimulating Hormone (TSH) 1.670 uIu/ml Urine Color DK YELLOW Urine Appearance CLOUDY Urine pH 5.0 Urine Specific [place] 1.024 Urine Protein 1+ Urine Glucose (UA) NEG Urine Ketones TRACE Urine Occult Blood TRACE Urine Nitrite NEG Urine Bilirubin NEG Urine Urobilinogen NEG Urine Leukocyte Esterase MODERATE Urine WBC (Auto) 10-30 /hpf Urine RBC (Auto) 0-4 /hpf Urine Hyaline Casts (Auto) >30 /lpf Urine Epithelial Cells (Auto) >30 /lpf Urine Bacteria (Auto) NEG Urine Renal Epithelial Cells 0-5 /lpf Urine Pathogenic Casts 1-5 WBC CASTS /lpf Estimated Average Glucose 82 mg/dl Hemoglobin A1c 4.5 % Magnesium Level 2.0 mg/dl Iron Level 65 mcg/dl Total Iron Binding Capacity 352 mcg/dl Transferrin 279 mg/dl Transferrin % Saturation 17 % Ferritin 34.6 ng/ml Triglycerides Level 142 mg/dl Cholesterol Level 125 mg/dl HDL Cholesterol 38 mg/dl LDL Cholesterol, Calculated 59 mg/dl VLDL Cholesterol, Calculated 28 mg/dl Cholesterol/HDL Ratio 3.3 Vitamin B12 Level > 2000 pg/mL Folate 20.08 ng/mL Assessment & Plan 81-year-old male who presents with presyncope. 1. Presyncope-resolved. Contributing factors include low PO intake prior to a workout which is a new regimen on top of taking two nitro tabs and subsequently having low BP. IVF overnight-will stop now as pt is eating and is not orthostatic. Serial cardiac enzymes negative overnight with TTE pending. Cards consult-awaiting recs. Will request formal PT/OT evaluation to ensure stability prior to discharge. Additionally, no further antibiotics will be give as there is no UTI present and sample appears to have been contaminated. Poss prior UTI with reports of the dysuria. Would follow-up with PCP if symptoms return as outpatient. 2. HTN-hypotension resolved. Continue Vasotec per home regimen. 3. BPH-cont Cardura. 4. Anemia- no obvious iron deficiency on labs and Hb is around that seen in 2012. Would continue workup as outpatient. DVT proph: Lovenox. Full Code Dispo-home per PT and Cards recs, today or tomorrow. [facility] Consultants: CardiologyJignesh Current Inpatient Medications: Current Inpatient Medications Medications (Trade) Dose Ordered Sig/Hugo Route Start Time Stop Time Status Last Admin Dose Admin Ioversol (Optiray 320) 100 ml UD PRN IV 10/18/17 19:00 10/22/17 18:59 Sodium Chloride 1,000 ml @ 50 mls/hr Q20H IV 10/18/17 20:02 11/17/17 20:01 10/18/17 22:34 50 MLS/HR Acetaminophen (Tylenol Tab) 650 mg Q4H PRN PO 10/18/17 20:15 11/17/17 20:14 Al Hydrox/Mg Hydrox/Simethicone (Maalox Max Susp) 15 ml Q4H PRN PO 10/18/17 20:15 11/17/17 20:14 Ondansetron HCl (Zofran Inj) 4 mg Q6H PRN IV 10/18/17 20:15 11/17/17 20:14 Nitroglycerin (Nitrostat Tab) 0.4 mg UD PRN SL 10/18/17 20:15 11/17/17 20:14 Polyethylene (Miralax Powder Packet) 17 gm DAILY PRN PO 10/18/17 20:15 11/17/17 20:14 Aspirin (Ecotrin Tab) 162 mg DAILY PO 10/19/17 09:00 11/18/17 08:59 10/19/17 09:27 162 MG Cholecalciferol (Vitamin D Tab) 1,000 inter.unit QPM PO 10/18/17 21:00 11/17/17 20:59 10/18/17 22:26 1,000 INTER.UNIT Doxazosin Mesylate (Cardura Tab) 2 mg DAILY PO 10/19/17 09:00 11/18/17 08:59 10/19/17 09:27 2 MG Fish Oil ([place]-3 (Purified Fish Oil) Cap) 1 gm BID PO 10/18/17 21:00 11/17/17 20:59 10/19/17 09:27 1 GM Pantoprazole Sodium (Protonix Tab) 40 mg DAILY PO 10/19/17 09:00 11/18/17 08:59 10/19/17 09:27 40 MG Diphenhydramine HCl (Benadryl Cap) 50 mg one PRN PO 10/18/17 20:15 11/17/17 20:14 Enalapril Maleate (Vasotec Tab) 10 mg DAILY PO 10/19/17 09:00 11/18/17 08:59 10/19/17 09:27 10 MG Rosuvastatin Calcium (Crestor Tab) 20 mg DAILY PO 10/19/17 09:00 11/18/17 08:59 10/19/17 09:27 20 MG Ascorbic Acid (Vitamin C Tab) 500 mg DAILY PO 10/19/17 09:00 11/18/17 08:59 10/19/17 09:27 500 MG Miscellaneous (Iv Fluids Completed) 1 ea PRN PRN N/A 10/18/17 23:15 10/18/18 23:14
--- NOTE | 2017-10-19 10:26 | CARDIOLOGY CONSULTATION ---
DATE OF CONSULTATION: 10/19/2017 REFERRING PHYSICIAN: Deborah jain. REASON FOR CONSULTATION: Presyncope. HISTORY OF PRESENT ILLNESS: This is an 81-year-old gentleman who usually follows with Dr. Torres through [facility]. The patient has a history of coronary intervention with stenting of the right coronary artery in 2005. He is listed as having stable coronary artery disease with class 1 functional capacity and angina at peak exercise. The patient states that he works out at least 3 days a week at a local gym. His usual exercise is 20 minutes on an elliptical device and 20 minutes on a stationary bike. He completed this exercise yesterday and went and took a shower. While sitting on the bench, he suddenly felt sweaty and dizzy. He had nitroglycerin in his bag, which he states was about 8 years old. He immediately took 2 and then an additional 2, thinking it might be from his heart. He felt worse as far as dizziness was concerned and his friend became concerned and called 911. The paramedics put him on a stretcher and he states that as soon as he was lying down, he felt better. He was brought to the Emergency Department, where he was given IV hydration. He has no complaints today. He has been up walking around without dizziness. His cardiac markers were negative. His EKG showed T-wave inversions in the lateral leads, which have been present on previous EKGs and are not new. The patient is also noted to be mildly anemic on his lab with a hemoglobin of 10.6 on admission. The patient states that he has had ongoing history of anemia. In the Emergency Department, his stools were checked and were negative for blood. He denied fever or chills. There is mention in the H&P that the patient had some dysuria recently, but the patient states that he really did not have any urinary symptoms. ALLERGIES: BEE VENOM. PAST MEDICAL HISTORY: As per the history of chief complaint. In addition, he has had cataract surgery and total hip replacement. He has had a cystoscopy with stent placement and spine surgery. FAMILY MEDICAL HISTORY: Noncontributory. SOCIAL HISTORY: The patient has never smoked. REVIEW OF SYSTEMS: A 10-point review of systems is negative except for the history of chief complaint. PHYSICAL EXAMINATION: GENERAL: He is alert and oriented, in no acute distress. VITAL SIGNS: Blood pressure is 120/60 and pulse is regular at 64. He is afebrile. HEENT: Normocephalic. Pupils are equal and reactive to light. Extraocular muscles are intact bilaterally. NECK: The neck veins are flat. Carotids have good upstrokes bilaterally without bruits. Thyroid is nonpalpable. RESPIRATORY: Breath sounds are equal bilaterally and clear to auscultation. CARDIOVASCULAR: Heart has a regular rhythm. Normal S1 and S2. No S3 or S4. No cardiac rubs or murmurs. GASTROINTESTINAL: Abdomen is soft and nontender without organomegaly. EXTREMITIES: Free of edema, digit clubbing, or cyanosis. NEUROLOGIC: Grossly intact. SKIN: Warm to touch. LYMPH NODES: Negative to palpation. LABORATORY DATA: Hemoglobin is 10.2 and WBC count is 6.63. Cardiac troponins are negative x2. Potassium is 3.6. Magnesium is 2.0. EKG is unchanged from previous studies from our office, showing T-wave abnormalities in the lateral leads. First-degree AV block. IMPRESSION: 1. Presyncope, which may have been related to dehydration including the use of diuretics, which the patient took the previous day. 2. Remote history of coronary artery disease with a previous stent in the right coronary artery in 2005. RECOMMENDATIONS: I reviewed the patient's echocardiogram and there are no significant wall motion abnormalities and overall LV function looks preserved. His cardiac markers are negative. He has had no significant arrhythmias on the telemetry. He was hypotensive, which may have been a combination of dehydration and perhaps the nitroglycerin that he took at the gym. In any case, I suspect he does not need any additional cardiac workup while in the hospital. His hemoglobin is low, but he states that it has been a chronic problem for him. If there are no other reasons to keep him in the hospital, I believe that he could be discharged to outpatient followup.
--- NOTE | 2017-10-19 11:01 | ECHOCARDIOGRAM REPORT ---
*NOTICE TO RECEIVING LIBERTARIAN AGENCY This information is strictly Confidential and protected under [place] law. [place] law prohibits you from making any further disclosure of this information unless further disclosure is expressly permitted by the written consent of the person to whom it pertains or is authorized by law. A general authorization for the release of medical or other information is not sufficient for this purpose. Hospital accepts no responsibility if the information is made available to any other person, INCLUDING THE PATIENT. Interpretation Summary * Name: MARÍA LEES Study Date: 10/19/2017 08:20 AM BP: 158/77 mmHg * Patient Location: [facility] HR: 54 * : 1935 (M/d/yyyy) Gender: Male Height: 65 in * Age: 81 yrs Ethnicity: CA Weight: 208 lb * Ordering Physician: Otis Smith * Referring Physician: Self, Referred * Performed By: Ember Puente RCS * * Reason For Study: Syncope * BSA: 2.0 m2 * -- Conclusions -- * There is mild concentric left ventricular hypertrophy. * The left ventricular wall motion is normal. * Ejection Fraction = 60-65%. * The right ventricular systolic function is normal. * The left atrial size is normal. * Right atrial size is normal. * Aortic valve sclerosis mild, without significant aortic valvular stenosis. * There is mild mitral regurgitation. Procedure Details * A complete two-dimensional transthoracic echocardiogram was performed (2D, M-mode, Doppler and color flow Doppler). Left Ventricle * The left ventricle is normal in size. * There is mild concentric left ventricular hypertrophy. * Ejection Fraction = 60-65%. * The left ventricular wall motion is normal. Right Ventricle * The right ventricle is normal size. * The right ventricular systolic function is normal. Atria * The left atrial size is normal. * Right atrial size is normal. * The interatrial septum is intact with no evidence for an atrial septal defect. Mitral Valve * There is mild mitral annular calcification. * The mitral valve leaflets appear thickened, but open well. * There is mild mitral regurgitation. Tricuspid Valve * The tricuspid valve is not well visualized, but is grossly normal. * Significant tricuspid regurgitation is absent. Aortic Valve * The aortic valve is tricuspid. The leaflet thickness if normal. There is no aortic stenosis, and no significant insufficiency. * Aortic valve sclerosis mild, without significant aortic valvular stenosis. * There is no significant aortic regurgitation. Pulmonic Valve * The pulmonic valve is not well visualized. * There is no pulmonic valvular regurgitation. Great Vessels * The aortic root and proximal ascending aorta are normal sized. Pericardium/Pleural * There is no pericardial effusion. MMode 2D Measurements and Calculations IVSd 1.1 cm IVSs 1.6 cm LVIDd 4.9 cm LVIDs 3.1 cm LVPWd 1.1 cm LVPWs 1.8 cm IVS/LVPW 1.0 FS 36.6 % EDV(Teich) 111.0 ml ESV(Teich) 37.5 ml EF(Teich) 66.2 % EDV(cubed) 115.3 ml ESV(cubed) 29.4 ml EF(cubed) 74.5 % % IVS thick 45.1 % % LVPW thick 63.9 % LV mass(C)d 194.4 grams LV mass(C)dI 96.7 grams/m\S\2 LV mass(C)s 197.6 grams LV mass(C)sI 98.3 grams/m\S\2 SV(Teich) 73.5 ml SI(Teich) 36.6 ml/m\S\2 SV(cubed) 85.9 ml SI(cubed) 42.7 ml/m\S\2 Ao root diam 4.1 cm Ao root area 13.0 cm\S\2 ACS 2.3 cm LA dimension 5.2 cm asc Aorta Diam 3.4 cm LA/Ao 1.3 EDV(MOD-sp4) 91.8 ml ESV(MOD-sp4) 37.9 ml EF(MOD-sp4) 58.7 % EDV(MOD-sp2) 103.9 ml ESV(MOD-sp2) 48.1 ml EF(MOD-sp2) 53.7 % SV(MOD-sp4) 53.9 ml SI(MOD-sp4) 26.8 ml/m\S\2 SV(MOD-sp2) 55.9 ml SI(MOD-sp2) 27.8 ml/m\S\2 Doppler Measurements and Calculations MV E max angle 95.9 cm/sec MV A max angle 65.4 cm/sec MV E/A 1.5 MV P1/2t max angle 95.3 cm/sec MV P1/2t 103.6 msec MVA(P1/2t) 2.1 cm\S\2 MV dec slope 269.6 cm/sec\S\2 MV dec time 0.19 sec Ao V2 max 135.1 cm/sec Ao max PG 7.3 mmHg Ao max PG (full) 0.87 mmHg LV V1 max PG 6.4 mmHg LV V1 max 126.8 cm/sec PA V2 max 118.0 cm/sec PA max PG 5.6 mmHg PI max angle 144.0 cm/sec PI max PG 8.4 mmHg PI dec slope 146.8 cm/sec\S\2 PI P1/2t 287.2 msec TR max angle 259.8 cm/sec
[2017-10-19 13:16] LABS: INR 1.1 (0.9-1.1)
[2017-10-19] MEDS: ENOXAPARIN 40 MG/0.4 ML SYR SQ SCH (16:05)
[2017-10-19] MEDS ORDERED: CEFTRIAXONE SOD INJ 1 GM in DEXTROSE 5% ADD-VANTAGE 50ML 50 ML IV SCH (18:00)
[2017-10-19] MEDS: CHOLECALCIFEROL 1000 INTER.UNIT TAB PO SCH (20:59)
[2017-10-20 04:10] VITALS: BP 138/78; PULSE 62; TEMP 36.8; O2SAT 95
[2017-10-20 07:07] VITALS: BP 142/66; PULSE 54; TEMP 36.7; O2SAT 97
[2017-10-20] MEDS: ASPIRIN 81 MG ECTAB PO SCH (08:04)
[2017-10-20] MEDS: ENALAPRIL MALEATE 10 MG TAB PO SCH (08:04)
[2017-10-20] MEDS: OMEGA-3 (PURIFIED FISH OIL) 1 GM CAP PO SCH (08:04)
[2017-10-20] MEDS: PANTOprazole SOD 40 MG TAB PO SCH (08:05)
[2017-10-20] MEDS: DOXAZosin MESYLATE TAB 2 MG TAB PO SCH (08:05)
[2017-10-20] MEDS: ASCORBIC ACID 500 MG TAB PO SCH (08:05)
[2017-10-20] MEDS: ROSUVASTATIN CALCIUM 20 MG TAB PO SCH (08:10)
--- NOTE | 2017-10-20 09:33 | Discharge Instructions ---
Discharge Instructions Date of Service Oct 20, 2017. Admission Reason for Admission: Hypotension, Pre-Syncope Discharge Discharge Diagnosis / Problem: hypotension, presyncope Discharge Goals Goal(s): Prevent Disease Progression Activity Recommendations Activity Limitations: per Instructions/Follow-up section . Instructions / Follow-Up Instructions / Follow-Up Please take all medications as instructed. Please follow-up PCP within one week of discharge. You have an appointment with Dr. Kumar on Sunday 10/22 @ 10:25 for follow-up from this hospitalization. Someone from the [facility] Cardiology office will contact you regarding a follow-up appointment with them. It was a pleasure taking care of you! Call if you have any questions or problems. You can reach a [facility] hospitalist on duty at [facility] 24 hours a day by calling [phone]. Take care of yourself. Stefanie Mcclendon DO [facility] Hospitalist Current Hospital Diet Patient's current hospital diet: AHA Diet (Heart Healthy) Discharge Diet Recommended Diet: AHA Diet (Heart Healthy) Procedures Procedures Performed: TTE: -- Conclusions -- There is mild concentric left ventricular hypertrophy. The left ventricular wall motion is normal. Ejection Fraction = 60-65%. The right ventricular systolic function is normal. The left atrial size is normal. Right atrial size is normal. Aortic valve sclerosis mild, without significant aortic valvular stenosis. There is mild mitral regurgitation. Pending Studies Studies pending at discharge: yes List of pending studies: Urine culture Laboratory Results Hemoglobin A1c Test 10/19/17 04:08 Range/Units Estimated Average Glucose 82 mg/dl Hemoglobin A1c 4.5 4.5-5.6 % Lipid Panel Test 10/19/17 04:08 Range/Units Triglycerides Level 142 0-150 mg/dl Cholesterol Level 125 0-200 mg/dl HDL Cholesterol 38 mg/dl Cholesterol/HDL Ratio 3.3 LDL Cholesterol, Calculated 59 mg/dl Medical Emergencies . Who to Call and When: Medical Emergencies: If at any time you feel your situation is an emergency, please call 911 immediately. . Non-Emergent Contact Non-Emergency issues call your: Primary Care Provider . . "Provider Documentation" section prepared by Stefanie Mcclendon. . VTE Core Measure Inpt VTE Proph given/why not?: Enoxaparin (Lovenox)SQ
[2017-10-20] MEDS: ENOXAPARIN 40 MG/0.4 ML SYR SQ SCH (09:34)
--- NOTE | 2017-10-20 10:33 | Discharge Summary ---
Discharge Summary Date of Service Oct 20, 2017. Discharge Summary Admission Date: Oct 18, 2017 at 20:14 Discharge Date: Oct 20, 2017 Discharge Disposition: Home Principal Diagnosis: Hypotension Dehydration Presyncope Procedures: TTE: * -- Conclusions -- * There is mild concentric left ventricular hypertrophy. * The left ventricular wall motion is normal. * Ejection Fraction = 60-65%. * The right ventricular systolic function is normal. * The left atrial size is normal. * Right atrial size is normal. * Aortic valve sclerosis mild, without significant aortic valvular stenosis. * There is mild mitral regurgitation. Vaccinations: None. Consultations: [facility] Medication Reconciliation Continued Medications: Ascorbic Acid (Vitamin C) 500 Mg Cap 500 MG PO DAILY, #30 Aspirin Enteric Coated (Ecotrin Or Generic) 81 Mg Tab 162 MG PO DAILY, 0 Refills Cholecalciferol (Vitamin D3) 1,000 Unit Tab 1000 INTER.UNIT PO QPM for 90 Days, TAB 3 Refills Diphenhydramine Hcl (Benadryl Allergy) 25 Mg Cap 2 CAP PO one PRN for Allergic Reaction for 30 Days, #30 CAP 1 Refill Doxazosin Mesylate (Cardura) 2 Mg Tab 2 MG PO DAILY Enalapril Maleate (Vasotec) 10 Mg Tab 1 TAB PO DAILY for 30 Days, #30 TAB 5 Refills Epinephrine (Epipen) 0.3 Mg/0.3 Ml Inj 0.3 MG IM UD PRN for Allergic Reaction, #1 BOX Esomeprazole Magnesium (Nexium) 40 Mg Gra 40 MG PO DAILY 1 HOUR BEFORE THE FIRST MEAL OF THE DAY Fish Oil (Irving-3) Oil 2 CAP PO BID Furosemide (Lasix) 20 Mg Tab 20 MG PO DAILY PRN for PRN, TAB Hydrochlorothiazide (Hctz) 12.5 Mg Cap 1 CAP PO 3XWK for 30 Days, CAP 5 Refills Rosuvastatin Calcium (Crestor) 20 Mg Tab 1 TAB PO DAILY for 30 Days, #30 TAB 5 Refills Admission Information HPI (per Admitting provider): HISTORY OF PRESENT ILLNESS: This is an 81-year-old male with past medical history significant for hypertension, CAD status post stent 12 years ago, GERD, BPH, hyperlipidemia, history of allergic reaction to insect bite, 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 The patient goes to gym 3 times a week and today after the exercise on treadmill electrical and cycling for about half an hour, he went to take shower. After shower, he was sitting on a bench when he suddenly felt almost passing out, he felt dizzy, was profusely sweating and felt like almost passing out. He did not feel good, then his friend went and called the EMS. He had about 8-year-old nitro tablets in his bag, which he took 2 of them and after getting into the ambulance, he felt okay. Right now resting comfortably. When he came in, his blood pressure was low in 80s with the fluid boluses it came up. Urinalysis done in the ER also showed some positive possible UTI. The patient says about 5 days ago he had some burning micturition, but that went away. He is feeling chilly now. Denies any chest pain, no shortness of breath, no cough, no sore throat, no difficulty swallowing. No runny nose. No earache, no blurred vision, no headaches. He had some headache earlier, but gone now. Currently not dizzy. No nausea, no vomiting, no abdominal pain. Normal bowel and bladder movements. Appetite is okay. No blood in the stool, no blood in the urine. Denies any fevers. He also developed lower extremity edema about 6 months ago and he is taking Lasix as needed. He takes about 1 tablet every 3 weeks and the last time he took was yesterday. Physical Exam (per Admitting): PHYSICAL EXAMINATION: GENERAL: The patient is obese, not in distress. VITAL SIGNS: Temperature 36.8, pulse 64, respiratory rate 18, blood pressure was standing 87/64, supine 125/59, oxygen 99% room air. HEENT: No pallor, no icterus. Pupils equal, round, and reactive to light. NECK: No JVD, no neck masses, no carotid bruits. CARDIOVASCULAR: S1, S2 heard, regular rate and rhythm, no murmur, no gallop. RESPIRATORY SYSTEM: Normal AP diameter. No accessory muscle use. No wheezing, no crackles. ABDOMEN: Soft, bowel sounds present. Nontender. No distention. CENTRAL NERVOUS SYSTEM: Cranial nerves II-XII grossly intact. Nonfocal. EXTREMITIES: Lower extremity +2 edema present. No erythema seen. Hospital Course 81-year-old male who presents with presyncope. 1. Presyncope-resolved. Contributing factors include low PO intake prior to a workout which is a new regimen on top of taking two nitro tabs and subsequently having low BP. IVF overnight-will stop now as pt is eating and is not orthostatic. Serial cardiac enzymes negative overnight with TTE pending. Cards consult-awaiting recs. Will request formal PT/OT evaluation to ensure stability prior to discharge. Additionally, no further antibiotics will be give as there is no UTI present and sample appears to have been contaminated. Poss prior UTI with reports of the dysuria. Would follow-up with PCP if symptoms return as outpatient. 2. HTN-hypotension resolved. Continue Vasotec per home regimen. 3. BPH-cont Cardura. 4. Anemia- no obvious iron deficiency on labs and Hb is around that seen in 2012. Would continue workup as outpatient. DVT proph: Lovenox. Full Code Dispo-home per PT and Cards recs, today or tomorrow. Stefanie [facility]cl[facility]on [facility] Total time spent on discharge = 60 minutes This includes examination of the patient, discharge planning, medication reconciliation, and communication with other providers. Discharge Instructions [address] [address] Discharge Medical Patient Name: Shon Dobbins Unit Number: [id number] Date of : 1935 Patient Status: Admitted Inpatient Attending Doctor: Stefanie Mcclendon DO DI: Medical v4 Discharge Instructions Date of Service Oct 20, 2017. Admission Reason for Admission: Hypotension, Pre-Syncope Discharge Discharge Diagnosis / Problem: hypotension, presyncope Discharge Goals Goal(s): Prevent Disease Progression Activity Recommendations Activity Limitations: per Instructions/Follow-up section . Instructions / Follow-Up Instructions / Follow-Up Please take all medications as instructed. Please follow-up PCP within one week of discharge. You have an appointment with Dr. Kumar on Sunday 10/22 @ 10:25 for follow-up from this hospitalization. Someone from the [facility] Cardiology office will contact you regarding a follow-up appointment with them. It was a pleasure taking care of you! Call if you have any questions or problems. You can reach a [facility] hospitalist on duty at [facility] 24 hours a day by calling [phone]. Take care of yourself. DO [facility] Current Hospital Diet Patient's current hospital diet: AHA Diet (Heart Healthy) Discharge Diet Recommended Diet: AHA Diet (Heart Healthy) Procedures Procedures Performed: TTE: -- Conclusions -- There is mild concentric left ventricular hypertrophy. The left ventricular wall motion is normal. Ejection Fraction = 60-65%. The right ventricular systolic function is normal. The left atrial size is normal. Right atrial size is normal. Aortic valve sclerosis mild, without significant aortic valvular stenosis. There is mild mitral regurgitation. Pending Studies Studies pending at discharge: yes List of pending studies: Urine culture Laboratory Results Hemoglobin A1c Test 10/19/17 04:08 Range/Units Estimated Average Glucose 82 mg/dl Hemoglobin A1c 4.5 4.5-5.6 % Lipid Panel Test 10/19/17 04:08 Range/Units Triglycerides Level 142 0-150 mg/dl Cholesterol Level 125 0-200 mg/dl HDL Cholesterol 38 mg/dl Cholesterol/HDL Ratio 3.3 LDL Cholesterol, Calculated 59 mg/dl Medical Emergencies . Who to Call and When: Medical Emergencies: If at any time you feel your situation is an emergency, please call 911 immediately. . Non-Emergent Contact Non-Emergency issues call your: Primary Care Provider . . "Provider Documentation" section prepared by Stefanie Mcclendon. . VTE Core Measure Inpt VTE Proph given/why not?: Enoxaparin (Lovenox)SQ Additional Copies To Trevor Kumar M.D.
[2017-10-20 10:46] VITALS: BP 142/66; PULSE 54; TEMP 36.7; O2SAT 97
== END 2017-10-20 12:56 | disposition home or self-care (01) | DRG 312 ==
LOC: EDBD 16:39 → C.EDC 16:40 → C.MED 20:14 → EDBEDREQ 20:21 → ENRESERV 20:28
PROVIDERS: ADMIT Internal Medicine; ATTEND Hospitalist
DX: R55 Syncope and collapse (principal); N39.0 Urinary tract infection, site not specified; I10 Essential (primary) hypertension; I25.10 Atherosclerotic heart disease of native coronary artery without angina pectoris; K21.9 Gastro-esophageal reflux disease without esophagitis; N40.0 Benign prostatic hyperplasia without lower urinary tract symptoms; E78.5 Hyperlipidemia, unspecified; Z82.49 Family history of ischemic heart disease and other diseases of the circulatory system; R60.9 Edema, unspecified; E66.9 Obesity, unspecified; D64.9 Anemia, unspecified

== ENCOUNTER → 2017-11-17 | Outpatient (CLI) | payer OTHER, BC ==
[~2017-11-17] MED LIST changes: +ASCO1CAP3 PO; +CHOL1000 PO; -CRS/10 PO; +DIPH25CA65 PO; +ENAL10TA PO; -ENAL1TAB33 PO; +EPP3/2 IM; +FURO-85 PO; +HYDR12.56 PO; +OSEL75CA12 PO; +ROSU20TA PO
--- NOTE | 2017-11-17 12:05 | DIAGNOSTIC IMAGING REPORT ---
KUB CLINICAL HISTORY: Renal neoplasm. COMPARISON STUDY: CT of the abdomen and pelvis November 01, 2017. FINDINGS: 1 x 0.7 cm right ureterovesical junction calculus is unchanged since CT of November 01, 2017. An adjacent 6 mm distal right ureteral calculus is also unchanged in position. Numerous bilateral renal calculi measure up to 8 mm. These are unchanged. A left hip arthroplasty is noted. IMPRESSION: 1. No significant change in 2 distal right ureteral calculi since CT of November 01, 2017, the larger of which measures 1 x 0.7 cm. 2. Bilateral nephrolithiasis. Electronically signed by: Richy Redding M.D. 11/17/2017 12:03 PM Dictated Date/Time: 11/17/2017 12:00 PM
== END | disposition home or self-care (01) ==
LOC: C.RADBC 11:07
PROVIDERS: ATTEND Urology
DX: D49.519 Neoplasm of unspecified behavior of unspecified kidney (principal); N20.0 Calculus of kidney; N20.1 Calculus of ureter

== ENCOUNTER → 2017-11-19 | Outpatient (CLI) | payer OTHER, BC | END | disposition home or self-care (01) | LOC: C.LABSPEC 14:51 | PROVIDERS: ATTEND Urology | DX: Z00.00 Encounter for general adult medical examination without abnormal findings (principal) ==

== ENCOUNTER → 2017-11-25 | Outpatient (CLI) | payer OTHER, BC | END | disposition home or self-care (01) | LOC: C.LABSPEC 14:59 | PROVIDERS: ATTEND Urology | DX: N20.0 Calculus of kidney (principal) ==

== ENCOUNTER → 2017-12-20 | Outpatient (CLI) | payer OTHER, BC ==
[~2017-12-20] MED LIST changes: -ASCO1CAP3 PO; +DICL1TAB5 PO; -ENAL10TA PO; +ENAL10TA88 PO; -ESOM40GR PO; -FISHOIL PO; -FURO-85 PO; +HYDR12.55 PO; -HYDR12.56 PO; +NXM/40 PO; +OMEGCAP2 PEG; -OSEL75CA12 PO; +TAMS0.4C38 PO
--- NOTE | 2017-12-20 10:10 | DIAGNOSTIC IMAGING REPORT ---
ADDENDUM ADDENDUM: The stone projecting over the left vesicoureteral junction could also be located in the bladder if this represents the passed distal right ureteral stone seen previously. Clinical correlation will be essential. Electronically signed by: Rivas Davidson M.D. 12/20/2017 10:12 AM Dictated Date/Time: 12/20/2017 10:11 AM ORIGINAL REPORT KUB CLINICAL HISTORY: Ureteral stone. FINDINGS: 2 AP supine abdominal radiograph is compared to study dated 11/17/2017 and correlated with abdominal CT dated 11/01/2017. Distal right ureteral stones seen on 11/17/2017 have resolved. There is a new large distal left ureteral stone projecting over the vesicoureteral junction. This measures 1.6 x 0.7 cm. There are numerous additional bilateral nonobstructing renal calculi. The largest on the right measures up to 8 mm and the largest on the left measures up to 10 mm. No additional ureteral stone is suspected. Numerous phleboliths are identified in the pelvis. No bowel obstruction is identified. The skeletal structures are osteopenic. Moderate lumbosacral spondylosis is identified. There is a left hip arthroplasty. IMPRESSION: 1. There is a new 1.6 x 0.7 cm obstructing calculus projecting over the left vesicoureteral junction. 2. Distal right ureteral stones seen on 11/17/2017 have resolved. 3. Numerous additional nonobstructing calculi project over both kidneys. Electronically signed by: Rivas Davidson M.D. 12/20/2017 10:09 AM Dictated Date/Time: 12/20/2017 10:04 AM
== END | disposition home or self-care (01) ==
LOC: C.RADBC 09:45
PROVIDERS: ATTEND Urology
DX: N20.1 Calculus of ureter (principal)

== ENCOUNTER → 2017-12-21 | Outpatient (CLI) | payer OTHER, BC ==
--- NOTE | 2017-12-21 12:45 | DIAGNOSTIC IMAGING REPORT ---
KUB CLINICAL HISTORY: Follow-up nephrolithiasis. FINDINGS: 2 AP supine abdominal radiographs are compared to study dated 12/20/2017 and correlated with abdominal CT dated 11/01/2017. The 1.6 cm calcification in the pelvis which projected over the left vascular junction on yesterday's examination project over the mid pelvis. This is likely located in the bladder. There are numerous additional bilateral nonobstructing renal calculi. The largest on the right measures up to 8 mm and the largest on the left measures up to 10 mm. There is no evidence of ureteral stone. Numerous phleboliths are identified in the pelvis. No bowel obstruction is identified. The skeletal structures are osteopenic. Moderate lumbosacral spondylosis is identified. There is a left hip arthroplasty. IMPRESSION: 1. The 1.6 cm calcification projecting over the left vesicoureteral junction on yesterday's examination now projects over the mid pelvis. This is likely located in the bladder. 2. Numerous bilateral nonobstructing renal calculi are unchanged from yesterday. No ureteral stone is seen. Electronically signed by: Rivas Davidson M.D. 12/21/2017 12:44 PM Dictated Date/Time: 12/21/2017 12:42 PM
== END | disposition home or self-care (01) ==
LOC: C.RADBC 12:19
PROVIDERS: ATTEND Urology
DX: N20.1 Calculus of ureter (principal); N20.0 Calculus of kidney

== ENCOUNTER → 2017-12-28 | Outpatient (CLI) | payer OTHER, BC | END | disposition home or self-care (01) | LOC: C.LABSPEC 17:06 | PROVIDERS: ATTEND Nurse Practitioner Adult Health | DX: N20.0 Calculus of kidney (principal) ==

== ENCOUNTER → 2018-01-05 | Outpatient (CLI) | payer OTHER, BC ==
[~2018-01-05] MED LIST changes: +ASPI-319 PO; -ASPI81TA21 PO; +GADAVIST IV PRN
--- NOTE | 2018-01-05 09:28 | DIAGNOSTIC IMAGING REPORT ---
ABDOMEN COMBO CLINICAL HISTORY: 82 years-old Male presenting with N28.1 renal cysts, left renal lesion. TECHNIQUE: Multisequence, multiplanar MR imaging of the abdomen was performed before and after the administration of intravenous contrast. IV contrast: 9 mL of Gadavist. COMPARISON: CT from 11/01/2017. FINDINGS: Localizer images: Unremarkable. Lung bases: Lungs and pleural spaces clear. Normal heart size. No pericardial or pleural effusion. Liver: Normal morphology. Well-defined T2 hyperintense nonenhancing lesion in the left hepatic lobe compatible with hepatic cyst or hamartoma. Hepatic fat fraction measures 7.8%, indicative of mild steatosis. Patent hepatic vasculature. Biliary: No intrahepatic or extrahepatic biliary ductal dilatation. Gallbladder contains gallstones. Pancreas: Mild parenchymal atrophy. Spleen: Normal. Adrenal glands: Normal. Kidneys and ureters: Multiple T2 hyperintense nonenhancing lesions in the kidneys compatible with simple cysts. Additionally, there is a 1.6 cm round lesion at the upper pole of the left kidney along the superior and anterior margin of a cyst. This does not invade the perinephric fat or the renal sinus. This lesion demonstrates avid enhancement on postcontrast imaging (series 13 image 83). No hydronephrosis. Bowel: Normal. No bowel obstruction. Peritoneal cavity: Trace free fluid in the pelvis. Lymph nodes: No enlarged lymph nodes in the abdomen. Vasculature: Aorta and IVC patent and normal in caliber. Abdominal wall: Normal. Musculoskeletal: Normal. IMPRESSION: 1. 1.6 cm round left renal lesion characteristic of renal cell carcinoma. No regional invasion. No lymphadenopathy or evidence of metastatic disease in the abdomen. 2. Bilateral simple renal cysts. Electronically signed by: Trevor Amanda M.D. 01/05/2018 9:27 AM Dictated Date/Time: 01/05/2018 9:19 AM
== END | disposition home or self-care (01) ==
LOC: C.MRI 08:25
PROVIDERS: ATTEND Urology
DX: N28.1 Cyst of kidney, acquired (principal)

== ENCOUNTER 2022-07-06 11:11 | Inpatient (IN) ==
--- NOTE | 2022-07-06 11:47 | Emergency Department Note ---
Impression & Plan Pneumothorax, left, Postprocedural pneumothorax ED Provider Note Name: MARÍA LEES Age: 86 Sex: M Arrives Via: Walk-In Informant: Patient, ED Provider: Gregory Bello MD Chief Complaint: Shortness of breath Impression: As per impressions above Medical Decision Making: Pleasant 86-year-old gentleman with a history of intermittent heart block who abreu d a pacemaker placed 2 weeks ago. Notes worsening shortness of breath since then. Seen by PCP who got a chest x-ray and saw pneumothorax at which time he was sent to the ER. Patient arrives quite short of breath satting about 95% on room air. Exam consistent with pneumothorax large as minimal aeration throughout the left middle and upper lung areas. Pressures are good. He was placed on nonrebreather. Chest x-ray confirms large left pneumothorax. Taken to trauma bay where consented and pneumothorax was improved with a pigtail catheter. Patient tolerated this well. Some mild discomfort given some IV pain medications will bit later. Sats are good breathing in no distress and agreeabl e to hospitalization. Prior Medical Record and Triage/Nursing Notes reviewed by Me Additional history obtained from chart Differentials:Reactive airway disease, pneumonia, pneumothorax, COPD, CHF, infections, cardiac ischemia, pulmonary embolism, musculoskeletal, gastrointestinal, as well as other pathologies. amongst other pathologies. Vital Signs: reviewed and remarkable for no significant abnormalities Interventions: Fentanyl 50 mcg IV, Dilaudid 0.5 mg IV, Rocephin 2 g IV, Zofran 4 mg IV Labs:Reviewed and remarkable for no significant abnormalities Imagin view chest x-ray reveals a large left pneumothorax without tension. Repeat chest x-ray reveals small left pneumothorax with pigtail catheter in place [facility] Disposition:Hospitalization. Condition: Good History of Present Illness:86-year-old gentleman arrives for evaluation of shortness of breath. Patient had a pacemaker placed about 2 weeks ago at this facility for bradycardia. He notes since then worsening shortness of breath. Worse with exertion. States even at rest now he is feeling short of breath. He has no pain. He denies any syncope, lightheadedness, nausea, vomiting, back pain, abdominal pain or any other concerning signs or symptoms. He has no history of significant breathing issues but does note when his heart rate was low he did feel short of breath. No leg swelling or calf pain. He takes aspirin daily but no other blood thinners. He has no history of DVT or PE. Took no medications prior to arrival. He states he is was seen by his PCP who sent him here due to concern for pneumothorax on chest x-ray. ROS: See above HPI for pertinent positives & negatives. A total of 10 systems reviewed and were otherwise negative. Past Medical History:See Below Past Surgical History:See Below Family History:See Below Social History:See Below Home Medications:See Below Allergies:ndka Vitals:Blood Pressure: 150/60, Pulse 65, RR 28, T 36.7C, O2 95% on RA Physical Exam: GENERAL: Patient is mildly uncomfortable appearing and in mild distress. EYES: No scleral icterus, unremarkable pupils. ENT: Mucous membranes moist, no nasal congestion. NECK: No masses appreciated, nomeningismus, trachea is midline. RESPIRATORY: Moderate dyspnea with decreased breath sounds throughout the entire left lobe. CHEST: Pacemaker placement left upper chest healing well no evidence of cellulitis, no abscess. CARDIOVASCULAR: Regular rate and rhythm.No murmurs, rubs, gallops appreciated. GASTROINTESTINAL: Abdomen soft, non-tender, no peritonitis.Bowel sounds positive.No masses appreciated. BACK: No midline tenderness, no CVA tenderness EXTREMITIES: Normal motion all extremities, no cyanosis, no edema. NEUROLOGIC: Alert and oriented, no acute motor or sensory deficits, no focal weakness, cranial nerves grossly intact. SKIN: No rash, no jaundice, no diaphoresis. PSYCH: Appropriate GCS: 15 ED Course: Times/Reassessments: Vastly improved post chest tube. Agreeable to hospitalization. Stable with good vitals throughout post procedure. Procedures: Tube Thoracostomy Indication: Left Pneumothorax Written consent was obtained after the risks and benefits were explained, including but not limited to cardiac/liver/lung injury, bleeding, scarring, infection, pain, and bone/joint/nerve damage. At this time, the risks of the procedure are less than the risks of NOT performing the procedure. A time out was taken and the correct patient and site identified. The patient was prepped and draped in the standard surgical fashion. 1% lidocaine without epinephrine was infused over the left fifth intercostal space into the subcutaneous tissue. A pigtail thoracostomy tube was inserted in the superior/posterior portion of the pleural space. 2-0 silk suture was used to approximate the skin above the thoracostomy tube and then used to secure the thoracostomy tube. An soft dressing was then placed and the thoracostomy tube was hooked to the Pleur-evac suction. The patient tolerated the procedure well without complications. A postoperative x-ray was then performed which showed the thoracostomy tube in the correct position. Gregory Bello MD Past Med/Surg History Medical History (Updated 07/06/22 @ 14:15 by Gregory Bello MD) Abnormality of pituitary gland CAD (coronary artery disease) 2006-s/p stenting to RCA Hyperlipemia Hypotension Iliac artery aneurysm, bilateral Intermittent complete heart block Pacemaker Renal mass left Spinal stenosis, lumbar region, with neurogenic claudication Surgical History (Updated 07/06/22 @ 14:13 by MARCE Singer) History of colonoscopy History of cystoscopy History of esophagogastroduodenoscopy (EGD) History of lithotripsy History of right cataract extraction History of total left hip arthroplasty Family History Mother Cervical cancer Father Renal failure Other Cancer Cardiac disorder Leukemia Social History Smoking Status: Never smoker Hx Alcohol Use: No Hx Substance Use: No Preferred Language: Ukrainian Communication Ability: Effective Visual Impairment: No Limitations Hearing Ability: Normal Recruiting Assistant Required: No Beliefs That Will Affect Care: None marital status: Current Living Situation: Spouse current occupational status: retired Feels Safe at Home: Yes Allergies Allergies Allergy/AdvReac Type Severity Reaction Status Date / Time bee venom protein (honey bee) Allergy Severe SWELLING Verified 12/03/21 10:13 hornet venom Allergy Severe ANAPHYLAXIS Verified 12/03/21 10:13 No Known Drug Allergies Allergy Verified 12/03/21 10:13 Home Meds Home Medications Medication Instructions Recorded Confirmed enalapril maleate 10 mg tablet 10 mg PO DAILY 04/25/19 07/06/22 esomeprazole magnesium 40 mg 40 mg PO DAILY PRN Acid Reflux 04/25/19 07/06/22 capsule,delayed release (Nexium) omega-3 fatty acids 1,000 mg 1,000 mg PO BID 04/25/19 07/06/22 capsule (Fish Oil Concentrate) rosuvastatin 20 mg tablet 20 mg PO QAM #30 tabs 04/25/19 07/06/22 aspirin 81 mg tablet,delayed 81 mg PO QPM 12/19/20 07/06/22 release hydrochlorothiazide 12.5 mg capsule 12.5 mg PO DAILY PRN Edema 12/19/20 07/06/22 Previous Rx's Medication Instructions Recorded finasteride 5 mg tablet 5 mg PO DAILY #90 tabs 12/03/21 potassium citrate 10 mEq (1,080 1,080 mg PO BID 90 days #180 tabs 06/11/22 mg) tablet,extended release tamsulosin 0.4 mg capsule 0.4 mg PO DAILY #90 caps 06/11/22 metoprolol succinate 25 mg 25 mg PO DAILY #30 tabs 06/23/22 tablet,extended release 24 hr Results & Data (ED) Vital Signs Vital Signs - 24 hr 07/06/22 11:22 07/06/22 12:05 07/06/22 12:48 Temperature 36.7 C Temperature Source Temporal Artery Scan Pulse Rate [Right Finger] 64 Respiratory Rate 25 H Respiratory Effort / Characteristics Spontaneous Non-Labored Respiratory Depth Normal Normal Respiratory Pattern Regular Blood Pressure [Right Arm] 146/95 H Blood Pressure Mean [Right Arm] 112 Pulse Oximetry 100 Oxygen Delivery Method Non-rebreather Non-rebreather Oxygen Flow Rate 15 15 Sepsis Recent Fever Within 48 Hours No Sepsis New/Unexplained Change in Mental Status N/A Sepsis Action Taken by Nursing No Action Required Pulse Oximetry Post Tiitration 07/06/22 12:49 07/06/22 13:12 07/06/22 13:52 Temperature Temperature Source Pulse Rate [Right Finger] Respiratory Rate Respiratory Effort / Characteristics Respiratory Depth Respiratory Pattern Blood Pressure [Right Arm] Blood Pressure Mean [Right Arm] Pulse Oximetry 100 100 Oxygen Delivery Method Non-rebreather Nasal Cannula Nasal Cannula Oxygen Flow Rate 15 10 5 Sepsis Recent Fever Within 48 Hours Sepsis New/Unexplained Change in Mental Status Sepsis Action Taken by Nursing Pulse Oximetry Post Tiitration 100 Laboratory Data Result diagrams: 07/06/22 12:05 07/06/22 12:05 Lab Results 07/06/22 07/06/22 07/06/22 Range/Units 12:05 12:05 12:05 WBC 8.67 (4.8-10.8) K/ul RBC 3.33 L (4.63-6.08) M/uL Hgb 11.2 L (14.0-18.0) g/dl Hct 31.1 L (40.1-51.0) % MCV 93.4 (80.0-100.0) fL MCH 33.6 (25.0-34.0) pg MCHC 36.0 (32.0-36.0) g/dL RDW Std Deviation 50.6 H (36.4-46.3) fL RDW Coeff of Yaniv 14.9 H (11.5-14.5) % Plt Count 211 (130-400) K/uL MPV 9.3 L (9.4-12.4) fL Immature Gran % (Auto) 0.7 % Neut % (Auto) 79.0 % Lymph % (Auto) 12.0 % [place] % (Auto) 7.4 % Eos % (Auto) 0.9 % Baso % (Auto) 0.0 % Neut # (Auto) 6.85 H (1.4-6.5) K/uL Lymph # (Auto) 1.04 L (1.2-3.4) K/uL [place] # (Auto) 0.64 (0.24-0.82) K/uL Eos # (Auto) 0.08 (0-0.50) K/uL Baso # (Auto) 0.00 (0-0.2) K/uL Immature Gran # (Auto) 0.06 H (0.00-0.02) K/uL PT 11.5 (9.0-12.0) Seconds INR 1.1 (0.9-1.1) Sodium 138 (136-145) mmol/L Potassium 4.4 (3.5-5.1) mmol/L Chloride 106 (98-107) mmol/L Carbon Dioxide 26 (21-32) mmol/L Anion Gap 6 (3-11) BUN 15 (6-23) mg/dl Creatinine 0.88 (0.6-1.4) mg/dl Est Cr Clr Drug Dosing 60.6 ml/min Est GFR ( Amer) 90.8 ml/min Est GFR (Non-Af Amer) 78.3 ml/min BUN/Creatinine Ratio 17.0 (10-20) Glucose 97 (70-99(Fasting)) mg/dl Calcium 9.3 (8.5-10.1) mg/dl Troponin I High Sens 13.7 (0-20) pg/ml SARS-CoV-2, RNA, NAAT (NEGATIVE) 07/06/22 Range/Units 12:45 WBC (4.8-10.8) K/ul RBC (4.63-6.08) M/uL Hgb (14.0-18.0) g/dl Hct (40.1-51.0) % MCV (80.0-100.0) fL MCH (25.0-34.0) pg MCHC (32.0-36.0) g/dL RDW Std Deviation (36.4-46.3) fL RDW Coeff of Yaniv (11.5-14.5) % Plt Count (130-400) K/uL MPV (9.4-12.4) fL Immature Gran % (Auto) % Neut % (Auto) % Lymph % (Auto) % [place] % (Auto) % Eos % (Auto) % Baso % (Auto) % Neut # (Auto) (1.4-6.5) K/uL Lymph # (Auto) (1.2-3.4) K/uL [place] # (Auto) (0.24-0.82) K/uL Eos # (Auto) (0-0.50) K/uL Baso # (Auto) (0-0.2) K/uL Immature Gran # (Auto) (0.00-0.02) K/uL PT (9.0-12.0) Seconds INR (0.9-1.1) Sodium (136-145) mmol/L Potassium (3.5-5.1) mmol/L Chloride (98-107) mmol/L Carbon Dioxide (21-32) mmol/L Anion Gap (3-11) BUN (6-23) mg/dl Creatinine (0.6-1.4) mg/dl Est Cr Clr Drug Dosing ml/min Est GFR ( Amer) ml/min Est GFR (Non-Af Amer) ml/min BUN/Creatinine Ratio (10-20) Glucose (70-99(Fasting)) mg/dl Calcium (8.5-10.1) mg/dl Troponin I High Sens (0-20) pg/ml SARS-CoV-2, RNA, NAAT NEGATIVE (NEGATIVE) Administered Medications Discontinued Medications Fentanyl Citrate (Fentanyl Citrate 100 Mcg/2 Ml Vial) 50 mcg IV NOW STA Stop: 07/06/22 12:05 Last Admin: 07/06/22 12:15 Dose: 50 mcg Documented By: CARMEN Hydromorphone HCl (Hydromorphone Inj 0.5 Mg/0.5 Ml Syr) 0.5 mg IV NOW STA Stop: 07/06/22 14:18 Last Admin: 07/06/22 14:22 Dose: 0.5 mg Documented By: CARMEN Ceftriaxone Sodium (Rocephin) 2,000 mg in 70 mls @ 140 mls/hr IV NOW STA Stop: 07/06/22 13:21 Last Infusion: 07/06/22 13:33 Dose: 0 mls/hr Documented By: Admin: 07/06/22 13:03 Dose: 140 mls/hr Documented By: CARMEN Lidocaine HCl (Lidocaine 1% Local 20 Ml Vial) 20 ml INFIL NOW ONE Stop: 07/06/22 12:08 Last Admin: 07/06/22 12:50 Dose: 20 ml Documented By: CARMEN Ondansetron HCl (Ondansetron Inj 2 Mg/Ml 2 Ml Vial) 4 mg IV NOW STA Stop: 07/06/22 12:05 Last Admin: 07/06/22 12:16 Dose: 4 mg Documented By: CARMEN Imaging Data Radiologist's Impression: Chest X-Ray 07/06/22 11:42 XR chest 1V portable CLINICAL HISTORY: Shortness of breath. COMPARISON STUDY: Chest CT June 17, 2019. Chest radiograph June 23, 2022. FINDINGS: There is a large left pneumothorax. Dual-lead left subclavian pacemaker is in place. There is no right pneumothorax. Left basilar opacity likely reflects atelectasis given partial left lung collapse. There is no eviden ce for pulmonary edema. IMPRESSION: Large left pneumothorax. ACT 112: Negative or not required by law. Electronically signed by: Richy Redding M.D. 07/06/2022 12:33 PM Chest X-Ray 07/06/22 12:39 XR chest 1V portable HISTORY: 86 years-old Male post chest tube status post placement of a left- sided chest tube COMPARISON: Chest radiograph of same day at 11:57 AM TECHNIQUE: AP view of the chest FINDINGS: Cardiac silhouette is enlarged. Left subclavian pacer. Status post placement of a left-sided chest tube with distal tip projected over the left hilum. With expansion of the left lung. Trace left residual pneumothorax seen greatest within the medial left lung apex. Trace pleural effusions suggested. Mild left midlung and left basilar atelectasis. Degenerative changes of the shoulders and spine. IMPRESSION: Small left-sided pneumothorax has decreased in size status post placement of a left-sided chest tube. ACT 112: Negative or not required by law. The above report was generated using voice recognition software. It may contain grammatical, syntax or spelling errors. Electronically signed by: Jamari Manzo M.D. 07/06/2022 1:04 PM Discharge Plan Visit Data Chief Complaint: Shortness of Breath/Dyspnea Stated Complaint: SOB ED Provider: Gregory Bello Discharge Problem: Pneumothorax, left, Postprocedural pneumothorax Forms Stand Alone Forms: My [facility] Prescriptions Prescriptions: No Action hydrochlorothiazide 12.5 mg capsule 12.5 mg PO DAILY PRN (Reason: Edema) aspirin 81 mg tablet,delayed release (DR/EC) 81 mg PO QPM finasteride 5 mg tablet 5 mg PO DAILY Qty: 90 3RF rosuvastatin 20 mg tablet 20 mg PO QAM Qty: 30 enalapril maleate 10 mg tablet 10 mg PO DAILY omega-3 fatty acids [Fish Oil Concentrate] 1,000 mg capsule 1,000 mg PO BID esomeprazole magnesium [Nexium] 40 mg capsule,delayed release(DR/EC) 40 mg PO DAILY PRN (Reason: Acid Reflux) tamsulosin 0.4 mg capsule 0.4 mg PO DAILY Qty: 90 3RF potassium citrate 10 mEq (1,080 mg) tablet extended release 1,080 mg PO BID 90 Days Qty: 180 3RF metoprolol succinate 25 mg tablet extended release 24 hr 25 mg PO DAILY Qty: 30 11RF Referrals Referrals: Trevor Kumar MD [Primary Care Provider] -
[2022-07-06] MEDS ORDERED: ONDANSETRON INJ 2 MG/ML 2 ML VIAL IV STA (12:04)
[2022-07-06] MEDS ORDERED: fentaNYL citrate 100 MCG/2 ML VIAL IV STA (12:04)
[2022-07-06] MEDS ORDERED: LIDOCAINE 1% LOCAL 20 ML VIAL INFIL ONE (12:07)
[2022-07-06 12:24] LABS: Eosinophils # (auto) 0.08 K/uL (0-0.50); Eosinophils % (auto) 0.9 %; Hematocrit (blood only) 31.1 % (40.1-51.0); Hemoglobin 11.2 g/dl (14.0-18.0); Immature Granulocytes # (auto) 0.06 K/uL (0.00-0.02); Immature Granulocytes % (auto) 0.7 %; Lymphocytes # (auto) 1.04 K/uL (1.2-3.4); Mean Corpuscular Hemoglobin 33.6 pg (25.0-34.0); Mean Corpuscular Volume 93.4 fL (80.0-100.0); Mean Platelet Volume 9.3 fL (9.4-12.4); Monocytes # (auto) 0.64 K/uL (0.24-0.82); Monocytes % (auto) 7.4 %; Neutrophils # (auto) 6.85 K/uL (1.4-6.5); Platelet Count 211 K/uL (130-400); RDW Coefficient of Variation 14.9 % (11.5-14.5); RDW Standard Deviation 50.6 fL (36.4-46.3); Red Blood Count 3.33 M/uL (4.63-6.08); White Blood Count 8.67 K/ul (4.8-10.8)
--- NOTE | 2022-07-06 12:35 | XRay Report ---
XR chest 1V portable CLINICAL HISTORY: Shortness of breath. COMPARISON STUDY: Chest CT June 17, 2019. Chest radiograph June 23, 2022. FINDINGS: There is a large left pneumothorax. Dual-lead left subclavian pacemaker is in place. There is no right pneumothorax. Left basilar opacity likely reflects atelectasis given partial left lung co llapse. There is no evidence for pulmonary edema. IMPRESSION: Large left pneumothorax. ACT 112: Negative or not required by law. Electronically signed by: Richy Redding M.D. 07/06/2022 12:33 PM
[2022-07-06 12:37] LABS: INR 1.1 (0.9-1.1); Prothrombin Time 11.5 Seconds (9.0-12.0)
[2022-07-06 12:46] LABS: Calcium 9.3 mg/dl (8.5-10.1); Creatinine Clr Calc Pharmacy 60.6 ml/min; Est GFR (African American) 90.8 ml/min; Est GFR (Non-African American) 78.3 ml/min; Potassium 4.4 mmol/L (3.5-5.1)
[2022-07-06 12:52] LABS: Troponin I High Sensitivity 13.7 pg/ml (0-20)
[2022-07-06] MEDS ORDERED: cefTRIAXone SODIUM 2,000 MG/70 ML BAG IV STA (12:52)
--- NOTE | 2022-07-06 13:05 | XRay Report ---
XR chest 1V portable HISTORY: 86 years-old Male post chest tube status post placement of a left-sided chest tube COMPARISON: Chest radiograph of same day at 11:57 AM TECHNIQUE: AP view of the chest FINDINGS: Cardiac silhouette is enlarged. Left subclavian pacer. Status post placement of a left-sided chest tu be with distal tip projected over the left hilum. With expansion of the left lung. Trace left residua l pneumothorax seen greatest within the medial left lung apex. Trace pleural effusions suggested. Mil d left midlung and left basilar atelectasis. Degenerative changes of the shoulders and spine. IMPRESSION: Small left-sided pneumothorax has decreased in size status post placement of a left-sided chest tube. ACT 112: Negative or not required by law. The above report was generated using voice recognition software. It may contain grammatical, syntax o r spelling errors. Electronically signed by: Jamari Manzo M.D. 07/06/2022 1:04 PM
[2022-07-06] MEDS ORDERED: HYDROmorphone INJ 0.5 MG/0.5 ML SYR IV STA (14:17)
--- NOTE | 2022-07-06 14:18 | History & Physical Report ---
Date of Service July 06, 2022 Assessment & Plan (1) Pneumothorax, left: Plan: Admit to telemetry Patient presenting by referral of PCP after outpatient CXR showed left-sided pneumothorax. Patient is s/p pacemaker on 06/23. In the ED, patient is hemodynamically stable and saturating well on room air. Chest tube has been placed by ED. Pulmonary consult for chest tube management (2) Lower extremity edema: Plan: Mild lower extremity edema noted, may be from venous stasis Most recent echo from 2018 - EF 60-65%, mild MR Update echo (3) Pacemaker: Plan: S/p pacemaker on 06/23 for intermittent complete heart block Dr. Alonzo notified of admission (4) CAD (coronary artery disease): Plan: Appears stable, no reports of chest pain Continue ASA, statin, beta-horacio (5) HTN (hypertension): Plan: BP controlled, continue enalapril and metoprolol (6) BPH with obstruction/lower urinary tract symptoms: Plan: Continue finasteride and tamsulosin (7) Renal mass: Plan: Has been followed by Karen in past, also [place] [facility] [place] CT pending (8) DVT prophylaxis: Plan: SCDs due to chest tube placement History of Present Illness Chief Complaint: Shortness of breath Primary Care Provider: Trevor Kmuar MD 86-year-old male with PMH CAD, HTN, dyslipidemia, bilateral iliac artery aneurysm, GERD, BPH, left renal mass, nephrolithiasis, and other problems listed below who presents to the ED for evaluation of shortness of breath. Patient was found to have intermittent complete heart block on outpatient ZIO monitor and was referred for pacemaker placement on 06/23/[address] Alonzo. Patient reports having progressive exertional shortness of breath since the procedure.Patient was seen by his PCP today where CXR was obtained showing a left-sided pneumothorax. Patient was referred to the ED for further evaluation. Patient reports a mild associated dry cough. No chest pain. Reports mild lower extremity edema that he attributes to sedentary state since procedure. Denies lightheadedness, dizziness, diaphoresis, syncopal events. No fevers or chills. Denies abdominal pain, nausea, vomiting, diarrhea. No urinary symptoms.In the ED, patient is hemodynamically stable and CXR confirms a large left pneumothorax. Chest tube was placed by ED physician. Allergies Allergy/AdvReac Type Severity Reaction Status Date / Time bee venom protein (honey bee) Allergy Severe SWELLING Verified 12/03/21 10:13 hornet venom Allergy Severe ANAPHYLAXIS Verified 12/03/21 10:13 No Known Drug Allergies Allergy Verified 12/03/21 10:13 Home Medications Medication Instructions Recorded Confirmed Type enalapril maleate 10 mg tablet 10 mg PO DAILY 04/25/19 07/06/22 History esomeprazole magnesium 40 mg 40 mg PO DAILY PRN Acid Reflux 04/25/19 07/06/22 History capsule,delayed release (Nexium) omega-3 fatty acids 1,000 mg 1,000 mg PO BID 04/25/19 07/06/22 History capsule (Fish Oil Concentrate) rosuvastatin 20 mg tablet 20 mg PO QAM #30 tabs 04/25/19 07/06/22 History aspirin 81 mg tablet,delayed 81 mg PO QPM 12/19/20 07/06/22 History release hydrochlorothiazide 12.5 mg capsule 12.5 mg PO DAILY PRN Edema 12/19/20 07/06/22 History finasteride 5 mg tablet 5 mg PO DAILY #90 tabs 12/03/21 07/06/22 Rx potassium citrate 10 mEq (1,080 1,080 mg PO BID 90 days #180 tabs 06/11/22 07/06/22 Rx mg) tablet,extended release tamsulosin 0.4 mg capsule 0.4 mg PO DAILY #90 caps 06/11/22 07/06/22 Rx metoprolol succinate 25 mg 25 mg PO DAILY #30 tabs 06/23/22 07/06/22 Rx tablet,extended release 24 hr Past Med/Surg History Medical History (Updated 07/06/22 @ 15:17 by MARCE Singer) Abnormality of pituitary gland CAD (coronary artery disease) 2006-s/p stenting to RCA HTN (hypertension) Hyperlipemia Iliac artery aneurysm, bilateral Intermittent complete heart block Pacemaker Renal mass left Spinal stenosis, lumbar region, with neurogenic claudication Surgical History History of colonoscopy History of cystoscopy History of esophagogastroduodenoscopy (EGD) History of lithotripsy History of right cataract extraction History of total left hip arthroplasty Family History Mother Cervical cancer Father Renal failure Other Cancer Cardiac disorder Leukemia Social History Smoking Status: Never smoker Hx Alcohol Use: No Hx Substance Use: No Preferred Language: Turkish Communication Ability: Effective Visual Impairment: No Limitations Hearing Ability: Normal Shower Enclosure Installer Required: No Beliefs That Will Affect Care: None marital status: Current Living Situation: Spouse current occupational status: retired Feels Safe at Home: Yes Assistive Devices: Glasses Review of Systems Review of Systems: ROS per HPI, all other systems reviewed and negative Physical Exam Constitutional: WD/WN, vitals as above Eyes: PERRL, conjunctivae normal, anicteric sclerae ENMT: external ear and nose normal, oropharynx normal Respiratory: normal respiratory effort; no respiratory distress Auscultation: + diminished lung sounds (left) chest tube in place to left chest Cardiovascular: Rate/Rhythm: regular rate and regular rhythm Vessels: normal peripheral pulses Extremities: + edema (+1 edema BLE) Chest (Breasts): Chest: + pacemaker (surgical incision healing well, no surrounding errythema or drainage ) Gastrointestinal (Abdomen): normal bowel sounds, soft, nontender, no hepatosplenomegaly Musculoskeletal: no cyanosis or clubbing, extremities motor strength 5/5 Skin: no rashes, warm and dry Neurologic: PERRL, EOMI, accommodation nl, no face palsy, no dysarthria Psychiatric: A+Ox3, euthymic affect Results & Data Results & Data ([facility]) Vital Signs (Past 12 Hours) Vital Signs Temp Pulse Resp BP Pulse Ox O2 Del Method O2 Flow Rate 07/06/22 13:52 100 Nasal Cannula 5 07/06/22 13:12 100 Nasal Cannula 10 07/06/22 12:49 Non-rebreather 15 07/06/22 12:48 64 25 H 146/95 H 100 Non-rebreather 15 07/06/22 12:05 Non-rebreather 15 07/06/22 11:22 36.7 C Laboratory Results Short CBC 07/06/22 Range/Units 12:05 WBC 8.67 (4.8-10.8) K/ul Hgb 11.2 L (14.0-18.0) g/dl Hct 31.1 L (40.1-51.0) % Plt Count 211 (130-400) K/uL BMP 07/06/22 12:05 Sodium 138 Potassium 4.4 Chloride 106 Carbon Dioxide 26 BUN 15 Creatinine 0.88 Glucose 97 Calcium 9.3 Liver Function 07/06/22 Range/Units 12:05 Total Bilirubin 0.8 (0.2-1.0) mg/dl Direct Bilirubin 0.1 (0-0.2) mg/dl AST 21 (13-39) U/L ALT 18 (7-52) U/L Alkaline Phosphatase 38 (34-104) U/L Albumin 4.2 (3.4-5.0) gm/dl Diagnostic Findings Chest X-Ray 07/06/22 11:42 XR chest 1V portable CLINICAL HISTORY: Shortness of breath. COMPARISON STUDY: Chest CT June 17, 2019. Chest radiograph June 23, 2022. FINDINGS: There is a large left pneumothorax. Dual-lead left subclavian pacem peg is in place. There is no right pneumothorax. Left basilar opacity likely reflects atelectasis given partial left lung collapse. There is no evidence for pulmonary edema. IMPRESSION: Large left pneumothorax. ACT 112: Negative or not required by law. Electronically signed by: Richy Redding M.D. 07/06/2022 12:33 PM Chest X-Ray 07/06/22 12:39 XR chest 1V portable HISTORY: 86 years-old Male post chest tube status post placement of a left- sided chest tube COMPARISON: Chest radiograph of same day at 11:57 AM TECHNIQUE: AP view of the chest FINDINGS: Cardiac silhouette is enlarged. Left subclavian pacer. Status post placement of a left-sided chest tube with distal tip projected over the left hilum. With expansion of the left lung. Trace left residual pneumothorax seen greatest within the medial left lung apex. Trace pleural effusions suggested. Mild left midlung and left basilar atelectasis. Degenerative changes of the shoulders and spine. IMPRESSION: Small left-sided pneumothorax has decreased in size status post placement of a left-sided chest tube. ACT 112: Negative or not required by law. The above report was generated using voice recognition software. It may contain grammatical, syntax or spelling errors. Electronically signed by: Jamari Manzo M.D. 07/06/2022 1:04 PM Code Status & VTE Plan Code Status Patient is a full code as per my discussion with him. VTE Prophylaxis Plan VTE Prophylaxis will be ordered: Yes Supervising Physician Co-Signing Physician Notes I evaluated and examined the patient myself and agree with the note from JUSTINA Patient is an 86-year-old male who had a dual-chamber pacemaker placed 3 weeks ago. Chest x-ray after the placement did not show any abnormal finding. He has been suffering from shortness of breath mostly on exertion since. He visited his primary care physician today and was going to be placed on diuretic for questionable pulmonary edema. A chest x-ray was done and he was instructed to come to the hospital. Patient was found to have a large left pneumothorax and chest x-ray. The chest tube was placed by ER physician. Patient slightly feels better. On physical examination, there is decreased breath sounds on left lung base. Chest tube is in place. Bilateral lower extremity 2+ edema is noticed. Admit to telemetry for closer monitoring Consult pulmonary to manage the chest tube Pain management with oral Tylenol Consulted EP revenue officer. She will visit the patient tomorrow.
[2022-07-06 14:48] LABS: Albumin Level 4.2 gm/dl (3.4-5.0); Bilirubin Direct 0.1 mg/dl (0-0.2); Bilirubin,Total 0.8 mg/dl (0.2-1.0); Total Protein 6.4 gm/dl (6.0-8.3)
--- NOTE | 2022-07-06 14:51 | Pulmonary Consultation ---
Date of Consultation July 06, 2022 Assessment & Plan (1) Postprocedural pneumothorax: Plan Impression: 86-year-old male with pneumothorax likely secondary to pacemaker placement. He is status post small bore pigtail catheter with near complete resolution of the pneumothorax. Recommendations: 1. Postprocedural pneumothorax: Continue chest tube to 20 cm of wall suction. We will repeat chest x-ray later this evening or first thing tomorrow morning and if the lung stays up, consider clamping trial and subsequent removal if the lung should persistently remain up. 2. Continue supplemental oxygen in an effort to D nitrogen 8 air in the pleural space. 3. Analgesia per primary service. 4. Management the patient's other medical issues per primary service. Thanks for the opportunity participating the care of this patient. Feel free to contact us questions or concerns. History of Present Illness History of Present Illness Asked by hospitalist to assist in evaluation management this patient with postprocedural pneumothorax. History is obtained from discussion with the patient as well as review the electronic medical record. Patient is an 86-year-old male who is being evaluated in the outpatient setting for arrhythmias. Monitoring showed intermittent episodes of third-degree and high degree second-degree AV block. Pacemaker was recommended. He underwent placement of a dual-chamber pacemaker 06/30/2022. Patient's had shortness of breath since the procedure. His primary care provider saw him today and ordered a chest x-ray which showed pneumothorax and the patient was subsequently referred to the emergency room. He had a small bore catheter placed by the emergency room physician and is being admitted to the hospitalist service. He reports that his shortness of breath is better. The patient has no history of trauma. He denies significant palpitations. No significant lower extremity edema. Allergies Allergy/AdvReac Type Severity Reaction Status Date / Time bee venom protein (honey bee) Allergy Severe SWELLING Verified 12/03/21 10:13 hornet venom Allergy Severe ANAPHYLAXIS Verified 12/03/21 10:13 No Known Drug Allergies Allergy Verified 12/03/21 10:13 Home Medications Medication Instructions Recorded Confirmed Type enalapril maleate 10 mg tablet 10 mg PO DAILY 04/25/19 07/06/22 History esomeprazole magnesium 40 mg 40 mg PO DAILY PRN Acid Reflux 04/25/19 07/06/22 History capsule,delayed release (Nexium) omega-3 fatty acids 1,000 mg 1,000 mg PO BID 04/25/19 07/06/22 History capsule (Fish Oil Concentrate) rosuvastatin 20 mg tablet 20 mg PO QAM #30 tabs 04/25/19 07/06/22 History aspirin 81 mg tablet,delayed 81 mg PO QPM 12/19/20 07/06/22 History release hydrochlorothiazide 12.5 mg capsule 12.5 mg PO DAILY PRN Edema 12/19/20 07/06/22 History finasteride 5 mg tablet 5 mg PO DAILY #90 tabs 12/03/21 07/06/22 Rx potassium citrate 10 mEq (1,080 1,080 mg PO BID 90 days #180 tabs 06/11/22 07/06/22 Rx mg) tablet,extended release tamsulosin 0.4 mg capsule 0.4 mg PO DAILY #90 caps 06/11/22 07/06/22 Rx metoprolol succinate 25 mg 25 mg PO DAILY #30 tabs 06/23/22 07/06/22 Rx tablet,extended release 24 hr Patient History Medical History (Updated 07/06/22 @ 14:15 by Gregory Bello MD) Abnormality of pituitary gland CAD (coronary artery disease) 2006-s/p stenting to RCA Hyperlipemia Hypotension Iliac artery aneurysm, bilateral Intermittent complete heart block Pacemaker Renal mass left Spinal stenosis, lumbar region, with neurogenic claudication Surgical History (Updated 07/06/22 @ 14:13 by MARCE Singer) History of colonoscopy History of cystoscopy History of esophagogastroduodenoscopy (EGD) History of lithotripsy History of right cataract extraction History of total left hip arthroplasty Family History Mother Cervical cancer Father Renal failure Other Cancer Cardiac disorder Leukemia Social History Smoking Status: Never smoker Hx Alcohol Use: No Hx Substance Use: No Preferred Language: Romanian Communication Ability: Effective Visual Impairment: No Limitations Hearing Ability: Normal Health And Safety Manager Required: No Beliefs That Will Affect Care: None marital status: Current Living Situation: Spouse current occupational status: retired Feels Safe at Home: Yes Review of Systems Review of Systems: Please refer to admission H&P. No additions or deletions Physical Exam Constitutional: WD/WN, vitals as above Neck: trachea midline, no thyromegaly Respiratory: normal respiratory effort, lungs clear to auscultation Cardiovascular: RRR, no murmur, no edema On my assessment, the chest tube was not attached to suction. There was no titling present. I returned the tube to suction with evacuation of a small amount of air. There is no persistent air leak noted. Gastrointestinal (Abdomen): normal bowel sounds, soft, nontender, no hepatosplenomegaly Musculoskeletal: Extremities: extremities normal to inspection Skin: no rashes, warm and dry Neurologic: Nonfocal exam Lymphatic: no cervical lymphadenopathy Results & Data Results & Data ([facility]) Vital Signs (Past 12 Hours) Vital Signs Temp Pulse Resp BP Pulse Ox O2 Del Method O2 Flow Rate 07/06/22 13:52 100 Nasal Cannula 5 07/06/22 13:12 100 Nasal Cannula 10 07/06/22 12:49 Non-rebreather 15 07/06/22 12:48 64 25 H 146/95 H 100 Non-rebreather 15 07/06/22 12:05 Non-rebreather 15 07/06/22 11:22 36.7 C Critical Care Results & Data Vital Signs (Past 12 Hours) Vital Signs Temp Pulse Resp BP Pulse Ox O2 Del Method O2 Flow Rate 07/06/22 13:52 100 Nasal Cannula 5 07/06/22 13:12 100 Nasal Cannula 10 07/06/22 12:49 Non-rebreather 15 07/06/22 12:48 64 25 H 146/95 H 100 Non-rebreather 15 07/06/22 12:05 Non-rebreather 15 07/06/22 11:22 36.7 C Lab & Micro Results (Past 24 Hours) RBC 3.33 M/uL (4.63-6.08) L 07/06/22 WBC 8.67 K/ul (4.8-10.8) 07/06/22 Hgb 11.2 g/dl (14.0-18.0) L 07/06/22 Hct 31.1 % (40.1-51.0) L 07/06/22 MCV 93.4 fL (80.0-100.0) 07/06/22 MCH 33.6 pg (25.0-34.0) 07/06/22 MCHC 36.0 g/dL (32.0-36.0) 07/06/22 RDW Standard Deviation 50.6 fL (36.4-46.3) H 07/06/22 RDW Coefficient of Variation 14.9 % (11.5-14.5) H 07/06/22 Plt Count 211 K/uL (130-400) 07/06/22 MPV 9.3 fL (9.4-12.4) L 07/06/22 Neutrophils (%) (Auto) 79.0 % 07/06/22 Lymphocytes (%) (Auto) 12.0 % 07/06/22 Monocytes # (Auto) 0.64 K/uL (0.24-0.82) 07/06/22 Eosinophils # (Auto) 0.08 K/uL (0-0.50) 07/06/22 Immature Granulocyte % (Auto) 0.7 % 07/06/22 Neutrophils # (Auto) 6.85 K/uL (1.4-6.5) H 07/06/22 Lymphocytes # (Auto) 1.04 K/uL (1.2-3.4) L 07/06/22 Monocytes # (Auto) 0.64 K/uL (0.24-0.82) 07/06/22 Eosinophils # (Auto) 0.08 K/uL (0-0.50) 07/06/22 Basophils # (Auto) 0.00 K/uL (0-0.2) 07/06/22 Immature Granulocyte # (Auto) 0.06 K/uL (0.00-0.02) H 07/06 Na 138 mmol/L (136-145) 07/06/22 K 4.4 mmol/L (3.5-5.1) 07/06/22 Cl 106 mmol/L (98-107) 07/06/22 CO2 26 mmol/L (21-32) 07/06/22 Anion Gap 6 (3-11) 07/06/22 BUN 15 mg/dl (6-23) 07/06/22 Creatinine 0.88 mg/dl (0.6-1.4) 07/06/22 Estimated GFR ( Amer) 90.8 ml/min 07/06/22 Estimated GFR (Non-Af Amer) 78.3 ml/min 07/06/22 BUN/Creatinine Ratio 17.0 (10-20) 07/06/22 Glu 97 mg/dl (70-99(Fasting)) 07/06/22 Ca 9.3 mg/dl (8.5-10.1) 07/06/22 Total Bilirubin 0.8 mg/dl (0.2-1.0) 07/06/22 Direct Bilirubin 0.1 mg/dl (0-0.2) 07/06/22 AST 21 U/L (13-39) 07/06/22 ALT 18 U/L (7-52) 07/06/22 Alkaline Phosphatase 38 U/L (34-104) 07/06/22 TP 6.4 gm/dl (6.0-8.3) 07/06/22 Albumin 4.2 gm/dl (3.4-5.0) 07/06/22 Calcium Level 9.3 mg/dl (8.5-10.1) 07/06/22 12:05 Prothromb Time International Ratio 1.1 (0.9-1.1) 07/06/22 12:0 5 Diagnostic Findings (Past 24 Hours) Chest X-Ray 07/06/22 11:42 XR chest 1V portable CLINICAL HISTORY: Shortness of breath. COMPARISON STUDY: Chest CT June 17, 2019. Chest radiograph June 23, 2022. FINDINGS: There is a large left pneumothorax. Dual-lead left subclavian pacemaker is in place. There is no right pneumothorax. Left basilar opacity likely reflects atelectasis given partial left lung collapse. There is no evidence for pulmonary edema. IMPRESSION: Large left pneumothorax. ACT 112: Negative or not required by law. Electronically signed by: Richy Redding M.D. 07/06/2022 12:33 PM Chest X-Ray 07/06/22 12:39 XR chest 1V portable HISTORY: 86 years-old Male post chest tube status post placement of a left- sided chest tube COMPARISON: Chest radiograph of same day at 11:57 AM TECHNIQUE: AP view of the chest FINDINGS: Cardiac silhouette is enlarged. Left subclavian pacer. Status post placement of a left-sided chest tube with distal tip projected over the left hilum. With expansion of the left lung. Trace left residual pneumothorax seen greatest within the medial left lung apex. Trace pleural effusions suggested. Mild left midlung and left basilar atelectasis. Degenerative changes of the shoulders and spine. IMPRESSION: Small left-sided pneumothorax has decreased in size status post placement of a left-sided chest tube. ACT 112: Negative or not required by law. The above report was generated using voice recognition software. It may contain grammatical, syntax or spelling errors. Electronically signed by: Jamari Manzo M.D. 07/06/2022 1:04 PM I & O Totals 24 Hours 07/05/22 07/06/22 07/07/22 06:59 06:59 06:59 Intake Total 70 / 70 Balance 70 / 70 Cumulative 07/06/22 11:11 thru 07/06/22 13:33 Intake Total 70 Balance 70 RT Ventilator Mngmt (Last Documented) Ventilator Ordered Settings Respiratory Rate 25 07/06/22 12:48 Ventilator - PT Measurements Respiratory Rate 25 PG Care Time/CCT Total # of Minutes Spent Total Time Spent with Patient: Total time spent is greater than 50% in coordination of care (as documented) at patient's floor/unit and/or counseling patient: Coding Level of Care Code 84756 Initial Inpt Care Lvl 2 Diagnoses Postprocedural pneumothorax J95.811
[2022-07-06] MEDS ORDERED: ACETAMINOPHEN 325 MG TAB PO PRN (15:21)
[2022-07-06] MEDS ORDERED: MoRPHine SULFATE 4 MG/ML 1 ML CARP\\VIAL IV PRN (15:21)
--- NOTE | 2022-07-06 15:48 | XRay Report ---
XR chest 1V portable HISTORY: 86 years-old Male pneumothorax COMPARISON: Chest radiograph of same day at 12:45 PM TECHNIQUE: AP view of the chest FINDINGS: Cardiac silhouette is enlarged. Pulmonary vascular congestion. Left subclavian pacer. Stable position ing of the left-sided chest tube. No definite residual pneumothorax identified. Small left pleural ef fusion with persistent left basilar atelectasis. Degenerative changes of the shoulders and spine. IMPRESSION: Stable positioning of the left-sided chest tube. No definite residual pneumothorax identi fied. ACT 112: Negative or not required by law. The above report was generated using voice recognition software. It may contain grammatical, syntax o r spelling errors. Electronically signed by: Jamari Manzo M.D. 07/06/2022 3:47 PM
[2022-07-06] MEDS: ACETAMINOPHEN 500 MG TAB PO SCH ×2 (15:49→20:09)
--- NOTE | 2022-07-06 16:00 | Electrocardiogram Report ---
Test Reason : Blood Pressure : / mmHG Vent. Rate : 059 BPM Atrial Rate : 050 BPM P-R Int : 140 ms QRS Dur : 130 ms QT Int : 464 ms P-R-T Axes : 087 135 087 degrees QTc Int : 459 ms AV dual-paced rhythm Biventricular pacemaker detected Abnormal ECG When compared with ECG of 23-JUN-2022 11:52, No significant change was found Confirmed by Fidencio Banuelos ([id number]) on 07/06/2022 4:00:24 PM Referred By: Trevor Kumar Confirmed By:Fidencio Banuelos
[2022-07-06] MEDS ORDERED: SILVER NITR/POTASSIUM NITRATE APPLICATOR ONE ×2 (17:02→18:35)
[2022-07-06] MEDS: POTASSIUM CITRATE 10 MEQ TAB PO SCH (20:09)
[2022-07-06] MEDS ORDERED: ASPIRIN 81 MG ECTAB PO SCH (21:00)
[2022-07-07] MEDS: ACETAMINOPHEN 500 MG TAB PO SCH ×2 (05:31→15:16)
[2022-07-07 07:20] LABS: Hematocrit (blood only) 29.9 % (40.1-51.0); Hemoglobin 10.4 g/dl (14.0-18.0); Mean Corpuscular Hgb Conc 34.8 g/dL (32.0-36.0); Mean Corpuscular Volume 94.9 fL (80.0-100.0); Mean Platelet Volume 9.1 fL (9.4-12.4); Platelet Count 181 K/uL (130-400); RDW Standard Deviation 51.6 fL (36.4-46.3); Red Blood Count 3.15 M/uL (4.63-6.08)
[2022-07-07 07:46] LABS: BUN Creatinine Ratio 17.6 (10-20); Est GFR (African American) 88.8 ml/min; Est GFR (Non-African American) 76.6 ml/min; Potassium 4.5 mmol/L (3.5-5.1)
[2022-07-07] MEDS: POTASSIUM CITRATE 10 MEQ TAB PO SCH (08:00)
[2022-07-07] MEDS ORDERED: PANTOprazole 40 MG TAB PO PRN (08:05)
--- NOTE | 2022-07-07 08:46 | XRay Report ---
XR chest 1V portable HISTORY: Follow-up left-sided pneumothorax. COMPARISON: Chest 07/06/2022. FINDINGS: A left-sided chest tube remains unchanged in position. There is a tiny left apical pneumoth orax remaining with a maximal pleural gap of 4 mm. Left-sided dual-chamber pacemaker again noted. Tra ce left pleural effusion persists. A few bibasilar linear densities which favor subsegmental atelecta sis. No mediastinal shift. The heart remains mildly enlarged. No evidence for pulmonary edema. IMPRESSION: 1. Tiny left apical pneumothorax. Left-sided chest tube remains unchanged in position. 2. Trace left pleural effusion, unchanged. ACT 112: Negative or not required by law. Electronically signed by: Panda Elias M.D. 07/07/2022 8:44 AM
[2022-07-07] MEDS ORDERED: ROSUVASTATIN CALCIUM 20 MG TAB PO SCH (09:00)
[2022-07-07] MEDS ORDERED: FINASTERIDE 5 MG TAB PO SCH (09:00)
[2022-07-07] MEDS ORDERED: ENALAPRIL MALEATE 10 MG TAB PO SCH (09:00)
[2022-07-07] MEDS ORDERED: TAMSULOSIN HCL 0.4 MG CAP PO SCH (09:00)
[2022-07-07] MEDS ORDERED: METOPROLOL SUCC 25MG EXT REL TAB PO SCH (09:00)
--- NOTE | 2022-07-07 09:24 | Pulmonology Progress Note ---
Date of Service July 07, 2022 Assessment & Plan (1) Postprocedural pneumothorax: Plan Impression: 86-year-old male with pneumothorax likely secondary to pacemaker placement. He is status post small bore pigtail catheter with near complete resolution of the pneumothorax. Recommendations: 1. Postprocedural pneumothorax: Chest tube clamped. We will follow-up his chest x-ray in about 4 to 5 hours. If the lung remains up after the clamping trial, will be removed and from a pulmonary perspective he can be dismissed from the hospital. 2. Continue supplemental oxygen in an effort to denitrogenate air in the pleural space. 3. Analgesia per primary service. 4. Management the patient's other medical issues per primary service. Thanks for the opportunity participating the care of this patient. Feel free to contact us questions or concerns. Admission and Anticipated Discharge Date Admission Date: July 06, 2022 Subjective Patient seen and examined. EMR reviewed. Patient is awake alert and conversant. He is doing well clinically. He does not complain of any chest pain or shortness of breath. His tube is been on suction overnight. Chest x-ray this morning demonstrates a tiny apical pneumothorax. There is no air leak appreciated on the suction mechanism. No new complaints Review of Systems Review of Systems: All systems reviewed & are unremarkable except as noted in Subjective Physical Exam Constitutional: WD/WN, vitals as above Neck: trachea midline, no thyromegaly Respiratory: normal respiratory effort, lungs clear to auscultation Cardiovascular: RRR, no murmur, no edema Gastrointestinal (Abdomen): normal bowel sounds, soft, nontender, no hepatosp lenomegaly Musculoskeletal: Extremities: extremities normal to inspection Skin: no rashes, warm and dry Lymphatic: no cervical lymphadenopathy Results & Data Results & Data ([facility]) Vital Signs (Past 12 Hours) Vital Signs Temp Pulse Pulse Resp BP Pulse Ox O2 Del Method 07/07/22 08:00 60 151/76 H 07/07/22 07:00 60 07/07/22 07:04 36.5 C 60 15 124/79 98 Nasal Cannula 07/07/22 02:55 37.0 C 60 18 135/70 99 Nasal Cannula 07/07/22 00:15 60 07/07/22 00:15 Nasal Cannula 07/06/22 23:36 36.8 C 60 18 137/73 99 Nasal Cannula O2 Flow Rate 07/07/22 08:00 07/07/22 07:00 07/07/22 07:04 2 07/07/22 02:55 2 07/07/22 00:15 07/07/22 00:15 2 07/06/22 23:36 2 Laboratory Results 07/07/22 06:34 07/07/22 06:34 Diagnostic Findings Chest x-ray from this morning was independently reviewed. Tube appears to be in good position. There is tiny apical pneumothorax, significantly improved from prior. PG Care Time/CCT Total # of Minutes Spent Total Time Spent with Patient: Total time spent is greater than 50% in coordination of care (as documented) at patient's floor/unit and/or counseling patient: Coding Level of Care Code 46429 Subseq Hosp Care Lvl 2 Diagnoses Postprocedural pneumothorax J95.811
--- NOTE | 2022-07-07 12:05 | Cardiology Progress Note ---
Date of Service July 07, 2022 Assessment & Plan (1) Pneumothorax, left: Plan: chest tube as per pulmonary (2) Pacemaker: Plan: pacemaker interrogated today and rate response changed back to medium pt will be scheduled a f/u in our office upon discharge (3) Intermittent complete heart block: Admission and Anticipated Discharge Date Admission Date: July 06, 2022 Subjective pt seen today due to delayed post pacemaker PTX he is feeling better no longer SOB and hypoxic His Chest tube has been sealed; awaiting repeat CXR Results & Data ([facility]) Vital Signs (Past 12 Hours) Vital Signs Temp Pulse Pulse Resp BP BP Pulse Ox 07/07/22 11:09 36.6 C 62 20 145/75 H 99 07/07/22 08:00 60 151/76 H 07/07/22 07:00 60 07/07/22 07:04 36.5 C 60 15 124/79 98 07/07/22 02:55 37.0 C 60 18 135/70 99 07/07/22 00:15 60 07/07/22 00:15 O2 Del Method O2 Flow Rate 07/07/22 11:09 Nasal Cannula 2 07/07/22 08:00 07/07/22 07:00 07/07/22 07:04 Nasal Cannula 2 07/07/22 02:55 Nasal Cannula 2 07/07/22 00:15 07/07/22 00:15 Nasal Cannula 2
--- NOTE | 2022-07-07 16:03 | XRay Report ---
XR chest 1V portable CLINICAL HISTORY: ptx, tube clamped TECHNIQUE: Single frontal radiograph of the chest was obtained. Comparison: Comparison is made to chest radiograph 07/07/2022 FINDINGS: A right chest tube is unchanged in position. Cardiomegaly is noted. Calcified aortic knob is seen. Th e lungs are clear. There is a small left pleural effusion, approximately unchanged from prior exam. T he previously noted tiny left apical pneumothorax is not well seen on this exam. IMPRESSION: Stable appearance of small left pleural effusion. No pneumothorax is seen, previously noted tiny apic al pneumothorax is no longer visualized. ACT 112: Negative or not required by law. Electronically signed by: Farhad Medina M.D. 07/07/2022 4:01 PM
--- NOTE | 2022-07-07 16:13 | Hospitalist Progress Note ---
Date of Service July 07, 2022 Assessment & Plan (1) Pneumothorax, left: Plan: Left pneumothorax Postprocedural pneumothorax likely secondary to pacemaker placement, a complication of care H/O Pacemaker placement on 06/23. -CXR:Large left pneumothorax S/P Chest Tube placement Appreciate pulmonary input Had Clamping trial today Continue supplemental oxygen Repeat CXR:Stable appearance of small left pleural effusion. No pneumothorax is seen, previously noted tiny apical pneumothorax is no longer visualized. Chest tube removed Plan to be discharged home today (2) Lower extremity edema: Plan: Mild lower extremity edema noted, may be from venous stasis ECHO: Moderate concentric LVH. Left ventricle systolic function is normal. EF 55 to 60%. Right ventricle is not well visualized. There is mild mitral regurgitation. on HCTZ PRN at baseline (3) Pacemaker: Plan: S/p pacemaker on 06/23 for intermittent complete heart block Appreciate Cardiology Input Pacemaker intraoperatively. Patient is scheduled to follow-up with cardiology upon discharge (4) CAD (coronary artery disease): Plan: Appears stable, no reports of chest pain Continue ASA, statin, beta-horacio (5) HTN (hypertension): Plan: continue enalapril and metoprolol (6) BPH with obstruction/lower urinary tract symptoms: Plan: Continue finasteride and tamsulosin (7) Renal mass: Plan: Has been followed by Karen in past, also established with [facility] [place] Outpatient screening CT pending (8) DVT prophylaxis: Plan: SCDs due to chest tube placement Admission and Anticipated Discharge Date Admission Date: July 06, 2022 Subjective Patient is seen and examined at bedside States having some soreness at the site of the chest tube Dyspnea improving Denies any other complaints Discussed with pulmonology and Cardiology today Review of Systems Review of Systems: All systems reviewed & are unremarkable except as noted in Subjective Physical Exam Physical Exam: Physical Exam: Vitals signs as noted above General Appearance:Moderately built and nourished, no apparent distress Head: normocephalic, Atraumatic Eyes: normal inspection, EOMI Neck: supple, Trachea midline Respiratory/Chest: Decreased left breath sounds, CTA, +Chest Tube, +Pacemaker Cardiovascular: S1, S2, No murmur Abdomen/GI:Soft, Non tender, Bowel sounds present Extremities/Musculoskeletal:normal inspection,1+ edema Neurologic/Psych:AAOX3, grossly no focal neurological deficits Skin: normal color, warm Results & Data Results & Data ([facility]) Vital Signs (Past 12 Hours) Vital Signs Temp Pulse Pulse Resp BP BP Pulse Ox 07/07/22 15:00 60 07/07/22 15:23 36.7 C 60 19 133/69 99 07/07/22 07:00 07/07/22 11:09 36.6 C 62 20 145/75 H 99 07/07/22 08:00 60 151/76 H 07/07/22 07:00 60 07/07/22 07:04 36.5 C 60 15 124/79 98 O2 Del Method O2 Flow Rate 07/07/22 15:00 07/07/22 15:23 Nasal Cannula 07/07/22 07:00 Nasal Cannula 2 07/07/22 11:09 Nasal Cannula 2 07/07/22 08:00 07/07/22 07:00 07/07/22 07:04 Nasal Cannula 2 Laboratory Results Short CBC 07/07/22 Range/Units 06:34 WBC 5.90 (4.8-10.8) K/ul Hgb 10.4 L (14.0-18.0) g/dl Hct 29.9 L (40.1-51.0) % Plt Count 181 (130-400) K/uL BMP 07/07/22 06:34 Sodium 136 Potassium 4.5 Chloride 104 Carbon Dioxide 29 BUN 16 Creatinine 0.91 Glucose 96 Calcium 9.0
--- NOTE | 2022-07-07 16:24 | Procedure Note ---
Procedure Note Date of Service July 07, 2022 Note Procedure: Discontinuation of 8 Swedish pigtail catheter Scrap Kettle Tender Dr. Dutton Indication resolution of previously noted pneumothorax Estimated blood loss none Anesthesia none Patient was placed in a semirecumbent position. The dressing was taken down. The securing suture was clipped and removed. Under full expiration, the pigtail catheter was pulled and an occlusive dressing applied over the incision site. This was secured with a Tegaderm. The patient tolerated the procedure well without adverse effect. The patient can be dismissed from the hospital. No pulmonary follow-up is needed. He has follow-up scheduled with cardiology. Coding CPT Codes Pulmonary/Thoracic - Pulmonary and Thoracic: 28950 Remove lung catheter ([id number]) [facility] [place]) Pulmonary/Thoracic Procedure 1: Pulmonary and Thoracic: 82826 Remove lung catheter
--- NOTE | 2022-07-07 16:31 | Discharge Summary ---
Date of Service July 07, 2022 Admission HPI Per Admitting Provider 86-year-old male with PMH CAD, HTN, dyslipidemia, bilateral iliac artery aneurysm, GERD, BPH, left renal mass, nephrolithiasis, and other problems listed below who presents to the ED for evaluation of shortness of breath. Patient was found to have intermittent complete heart block on outpatient ZIO monitor and was referred for pacemaker placement on 06/23/[address] Alonzo. Patient reports having progressive exertional shortness of breath since the procedure.Patient was seen by his PCP today where CXR was obtained showing a left-sided pneumothorax. Patient was referred to the ED for further evaluation. Patient reports a mild associated dry cough. No chest pain. Reports mild lower extremity edema that he attributes to sedentary state since procedure. Denies lightheadedness, dizziness, diaphoresis, syncopal events. No fevers or chills. Denies abdominal pain, nausea, vomiting, diarrhea. No urinary symptoms.In the ED, patient is hemodynamically stable and CXR confirms a large left pneumothorax. Chest tube was placed by ED physician. Admission Exam Per Admitting Provider Physical Exam Constitutional: WD/WN, vitals as above Eyes: PERRL, conjunctivae normal, anicteric sclerae ENMT: external ear and nose normal, oropharynx normal Respiratory: normal respiratory effort; no respiratory distress Auscultation: + diminished lung sounds (left) chest tube in place to left chest Cardiovascular: Rate/Rhythm: regular rate and regular rhythm Vessels: normal peripheral pulses Extremities: + edema (+1 edema BLE) Chest (Breasts): Chest: + pacemaker (surgical incision healing well, no surrounding errythema or drainage ) Gastrointestinal (Abdomen): normal bowel sounds, soft, nontender, no hepatosplenomegaly Musculoskeletal: no cyanosis or clubbing, extremities motor strength 5/5 Skin: no rashes, warm and dry Neurologic: PERRL, EOMI, accommodation nl, no face palsy, no dysarthria Psychiatric: A+Ox3, euthymic affect Principal Diagnosis Left pneumothorax Discharge Data Allergies Allergy/AdvReac Type Severity Reaction Status Date / Time bee venom protein (honey bee) Allergy Severe SWELLING Verified 12/03/21 10:13 hornet venom Allergy Severe ANAPHYLAXIS Verified 12/03/21 10:13 No Known Drug Allergies Allergy Verified 12/03/21 10:13 Consultations 07/06/22 13:03 ED Decision to Admit Stat 07/06/22 15:21 Consult Pulmonology Routine Procedures Performed Laboratory Results WBC 5.90 K/ul (4.8-10.8) 07/07/22 06:34 RBC 3.15 M/uL (4.63-6.08) L 07/07/22 06:34 Hgb 10.4 g/dl (14.0-18.0) L 07/07/22 06:34 Hct 29.9 % (40.1-51.0) L 07/07/22 06:34 MCV 94.9 fL (80.0-100.0) 07/07/22 06:34 MCH 33.0 pg (25.0-34.0) 07/07/22 06:34 MCHC 34.8 g/dL (32.0-36.0) 07/07/22 06:34 RDW Std Deviation 51.6 fL (36.4-46.3) H 07/07/22 06:34 RDW Coeff of Yaniv 15.0 % (11.5-14.5) H 07/07/22 06:34 Plt Count 181 K/uL (130-400) 07/07/22 06:34 MPV 9.1 fL (9.4-12.4) L 07/07/22 06:34 Immature Gran % (Auto) 0.7 % 07/06/22 12:05 Neut % (Auto) 79.0 % 07/06/22 12:05 Lymph % (Auto) 12.0 % 07/06/22 12:05 Barnes % (Auto) 7.4 % 07/06/22 12:05 Eos % (Auto) 0.9 % 07/06/22 12:05 Baso % (Auto) 0.0 % 07/06/22 12:05 Neut # (Auto) 6.85 K/uL (1.4-6.5) H 07/06/22 12:05 Lymph # (Auto) 1.04 K/uL (1.2-3.4) L 07/06/22 12:05 Barnes # (Auto) 0.64 K/uL (0.24-0.82) 07/06/22 12:05 Eos # (Auto) 0.08 K/uL (0-0.50) 07/06/22 12:05 Baso # (Auto) 0.00 K/uL (0-0.2) 07/06/22 12:05 Immature Gran # (Auto) 0.06 K/uL (0.00-0.02) H 07/06/22 12:05 PT 11.5 Seconds (9.0-12.0) 07/06/22 12:05 INR 1.1 (0.9-1.1) 07/06/22 12:05 Sodium 136 mmol/L (136-145) 07/07/22 06:34 Potassium 4.5 mmol/L (3.5-5.1) 07/07/22 06:34 Chloride 104 mmol/L (98-107) 07/07/22 06:34 Carbon Dioxide 29 mmol/L (21-32) 07/07/22 06:34 Anion Gap 3 (3-11) 07/07/22 06:34 BUN 16 mg/dl (6-23) 07/07/22 06:34 Creatinine 0.91 mg/dl (0.6-1.4) 07/07/22 06:34 Est Cr Clr Drug Dosing 58.0 ml/min 07/07/22 06:34 Est GFR ( Amer) 88.8 ml/min 07/07/22 06:34 Est GFR (Non-Af Amer) 76.6 ml/min 07/07/22 06:34 BUN/Creatinine Ratio 17.6 (10-20) 07/07/22 06:34 Glucose 96 mg/dl (70-99(Fasting)) 07/07/22 06:34 Calcium 9.0 mg/dl (8.5-10.1) 07/07/22 06:34 Total Bilirubin 0.8 mg/dl (0.2-1.0) 07/06/22 12:05 Direct Bilirubin 0.1 mg/dl (0-0.2) 07/06/22 12:05 AST 21 U/L (13-39) 07/06/22 12:05 ALT 18 U/L (7-52) 07/06/22 12:05 Alkaline Phosphatase 38 U/L (34-104) 07/06/22 12:05 Troponin I High Sens 13.7 pg/ml (0-20) 07/06/22 12:05 Total Protein 6.4 gm/dl (6.0-8.3) 07/06/22 12:05 Albumin 4.2 gm/dl (3.4-5.0) 07/06/22 12:05 SARS-CoV-2, RNA, NAAT NEGATIVE (NEGATIVE) 07/06/22 12:45 Impressions Chest X-Ray 07/07/22 15:29 XR chest 1V portable CLINICAL HISTORY: ptx, tube clamped TECHNIQUE: Single frontal radiograph of the chest was obtained. Comparison: Comparison is made to chest radiograph 07/07/2022 FINDINGS: A right chest tube is unchanged in position. Cardiomegaly is noted. Calcified aortic knob is seen. The lungs are clear. There is a small left pleural effusion, approximately unchanged from prior exam. The previously noted tiny left apical pneumothorax is not well seen on this exam. IMPRESSION: Stable appearance of small left pleural effusion. No pneumothorax is seen, previously noted tiny apical pneumothorax is no longer visualized. ACT 112: Negative or not required by law. Electronically signed by: Farhad Medina M.D. 07/07/2022 4:01 PM Hospital Course (1) Pneumothorax, left: Left pneumothorax Postprocedural pneumothorax likely secondary to pacemaker placement, a complication of care H/O Pacemaker placement on 06/23. -CXR:Large left pneumothorax S/P Chest Tube placement Appreciate pulmonary input Had Clamping trial today Continue supplemental oxygen Repeat CXR:Stable appearance of small left pleural effusion. No pneumothorax is seen, previously noted tiny apical pneumothorax is no longer visualized. Chest tube removed Plan to be discharged home today (2) Lower extremity edema: Mild lower extremity edema noted, may be from venous stasis ECHO: Moderate concentric LVH. Left ventricle systolic function is normal. EF 55 to 60%. Right ventricle is not well visualized. There is mild mitral regurgitation. on HCTZ PRN at baseline (3) Pacemaker: S/p pacemaker on 06/23 for intermittent complete heart block Appreciate Cardiology Input Pacemaker intraoperatively. Patient is scheduled to follow-up with cardiology upon discharge (4) CAD (coronary artery disease): Appears stable, no reports of chest pain Continue ASA, statin, beta-horacio (5) HTN (hypertension): continue enalapril and metoprolol (6) BPH with obstruction/lower urinary tract symptoms: Continue finasteride and tamsulosin (7) Renal mass: Has been followed by Karen in past, also established with [facility] [place] Outpatient screening CT pending (8) DVT prophylaxis: SCDs due to chest tube placement Total Time Total Time Spent Total Time Spent (In Minutes): 39 minutes Discharge Plan Discharge Items Patient Disposition: Home - Self-Care Reason For Visit: PNEUMOTHORAX Discharge Diagnosis: Left pneumothorax Activity: Per Instructions section Exercise/Sports: Wait until after follow-up appointment Non-emergency contact: Primary Care Provider and Robotic Machine Operator Call non-emergency contact if: you have any medication questions, your symptoms worsen, your pain is concerning for you and you have a fever Follow-up/Referrals: Trevor Kumar MD [Primary Care Provider] - Diet: Heart Healthy Addtl Attending Provider Instructions: Follow up with your PCP in 1 week. Please call for appointment. Follow-up with your health care liaison as recommended Seek immediate medical attention if your symptoms reoccur or worsen Please take all medications as instructed on discharge list below. Please call if you have any questions or problems. You can reach a [facility] hospitalist on duty at 24 hours a day by calling Pending Studies at Discharge: No Stand-Alone Forms: My [facility] [email or web address], Smoking Cessation Medications and DC Order Prescriptions: Continued hydrochlorothiazide 12.5 mg capsule 12.5 mg PO DAILY PRN (Reason: Edema) aspirin 81 mg tablet,delayed release (DR/EC) 81 mg PO QPM finasteride 5 mg tablet 5 mg PO DAILY Qty: 90 3RF rosuvastatin 20 mg tablet 20 mg PO QAM Qty: 30 enalapril maleate 10 mg tablet 10 mg PO DAILY omega-3 fatty acids [Fish Oil Concentrate] 1,000 mg capsule 1,000 mg PO BID esomeprazole magnesium [Nexium] 40 mg capsule,delayed release(DR/EC) 40 mg PO DAILY PRN (Reason: Acid Reflux) tamsulosin 0.4 mg capsule 0.4 mg PO DAILY Qty: 90 3RF potassium citrate 10 mEq (1,080 mg) tablet extended release 1,080 mg PO BID 90 Days Qty: 180 3RF metoprolol succinate 25 mg tablet extended release 24 hr 25 mg PO DAILY Qty: 30 11RF Discharge Orders: Discharge Order (Routine); Ordered 07/07/22 Ordered By: Eric Goldstein Admission Data Admit Date/Time: 07/06/22 13:43 Attending Provider: Eric Goldstein Admit Provider: Ngoc Valdez Primary Care Provider: Trevor Kumar Other Providers: Ngoc Valdez ; Flavio Dutton
--- NOTE | 2022-07-14 14:33 | Communication Note ---
Date of Service: July 14, 2022 By CMS guidelines, a determination that the admission or continued stay is not medically necessary has been made by a member of the UR committee and a ph ysician for this hospital stay, therefore a Code 44 will be completed and the Inpatient admission will be changed to outpatient.
--- NOTE | 2022-07-15 08:07 | Communication Note ---
Date of Service: July 07, 2022 86-year-old male was admitted with left pneumothorax and that was appropriately managed by mathematical technician and attending physician. He was discharged out of the hospital in stable medical condition. By CMS guidelines, a determination that the admission or continued stay is not medically necessary has been made by a member of the UR committee and a phy sician for this hospital stay, therefore a Code 44 will be completed and the Inpatient admission will be changed to outpatient. Dr Kel Buckner Member UR Committee
== END 2022-07-07 18:08 | disposition home or self-care (01) | DRG 200 ==
LOC: ED 11:11 → SUATTDRO 13:43 → 2E 13:43

== ENCOUNTER 2024-07-20 08:48 | Observation (INO) ==
--- NOTE | 2024-06-19 16:21 | PAT Medication Instructions ---
Medication Instructions Date of Service June 19, 2024 Home Medications Medication Instructions Recorded potassium citrate 10 mEq (1,080 1,080 mg PO BID 90 days #180 tabs /15/ mg) tablet,extended release enalapril maleate 10 mg tablet 10 mg PO QPM esomeprazole magnesium 40 mg capsule,delayed release (Nexium) 40 mg PO DAILY PRN omega-3 fatty acids 1,000 mg capsule (Fish Oil Concentrate) 1,000 mg PO BID rosuvastatin 20 mg tablet 20 mg PO QAM aspirin 81 mg tablet,delayed release 81 mg PO QPM hydrochlorothiazide 12.5 mg capsule 12.5 mg PO DAILY PRN potassium citrate 10 mEq (1,080 mg) tablet,extended release 1,080 mg PO BID duloxetine 30 mg capsule,delayed release 30 mg PO BID finasteride 5 mg tablet 5 mg PO QPM gabapentin 300 mg capsule 300 mg PO HS metoprolol succinate 25 mg tablet,extended release 24 hr 25 mg PO QAM tamsulosin 0.4 mg capsule 0.4 mg PO QPM Continue as directed esomeprazole magnesium 40 mg capsule,delayed release (Nexium) 40 mg PO DAILY PRN (if needed) ASK your prescriber and surgeon aspirin 81 mg tablet,delayed release 81 mg PO QPM STOP taking 2 weeks before surgery (or as soon as possible if surgery is within 2 weeks) omega-3 fatty acids 1,000 mg capsule (Fish Oil Concentrate) 1,000 mg PO BID DO NOT take the morning of surgery hydrochlorothiazide 12.5 mg capsule 12.5 mg PO DAILY PRN potassium citrate 10 mEq (1,080 mg) tablet,extended release 1,080 mg PO BID Take morning of surgery With a small sip of water, OTHERWISE NOTHING TO EAT OR DRINK AFTER MIDNIGHT: rosuvastatin 20 mg tablet 20 mg PO QAM duloxetine 30 mg capsule,delayed release 30 mg PO BID metoprolol succinate 25 mg tablet,extended release 24 hr 25 mg PO QAM Take evening before surgery enalapril maleate 10 mg tablet 10 mg PO QPM potassium citrate 10 mEq (1,080 mg) tablet,extended release 1,080 mg PO BID duloxetine 30 mg capsule,delayed release 30 mg PO BID finasteride 5 mg tablet 5 mg PO QPM gabapentin 300 mg capsule 300 mg PO HS tamsulosin 0.4 mg capsule 0.4 mg PO QPM Other Notes If you have any questions please call us at [phone] or [phone] or [phone] or [phone]
--- NOTE | 2024-06-28 13:55 | Anesthesiology Consultation ---
Date of Service June 28, 2024 Assessment & Plan (1) Encounter for pre-operative examination: - Infectious disease screening: Per assessment on 06/28/24: No known recent infectious disease contacts or current infectious disease symptoms. - Outpatient joint assessment: Pt currently scheduled for inpatient pathway. If surgeon requests review for outpatient joint pathway, patient is not recommended candidate for outpatient joint program from anesthesia standpoint based on available information. - Pending: * Awaiting upcoming cardiology office visit note ([facility], appt 07/13). * Anemia: Preop labs note hgb at 9.9. Per chart review, appears chronic anemia with fluctuating levels. Will forward to PCP to ensure nothing further needed preoperatively from their perspective. Note written to PCP regarding anemia- Awaiting response (Dr. Chand/[facility]). Chart Review Chart Review: Patient seen in Pre Admission Testing Teaching & Discussion Pre-Anesthesia Teaching/Discussion Notes: Instructed NPO after midnight before surgery,except medications with 15 cc of water. Medication instructions provided according to the PAT guidelines. History Surgery Operation Date: 07/19/24 09:05 Proposed Procedures p Right Total Hip Arthroplasty - Abiodun Diana MD Height/Weight Height: 5 ft 5 in Weight: 85.3 kg Allergies Allergy/AdvReac Type Severity Reaction Status Date / Time bee venom protein (honey bee) Allergy Severe Swelling Verified 06/27/24 09:08 hornet venom Allergy Severe Anaphylaxis Verified 06/27/24 09:08 No Known Drug Allergies Allergy Verified 06/16/24 08:37 Medications Home Medications Medication Instructions Recorded Confirmed Last Taken enalapril maleate 10 mg tablet 10 mg PO QPM 04/25/19 06/16/24 06/16/19 esomeprazole magnesium 40 mg 40 mg PO DAILY PRN Acid Reflux 04/25/19 06/16/24 Unknown capsule,delayed release (Nexium) omega-3 fatty acids 1,000 mg 1,000 mg PO BID 04/25/19 06/16/24 06/16/19 capsule (Fish Oil Concentrate) rosuvastatin 20 mg tablet 20 mg PO QAM #30 tabs 04/25/19 06/16/24 06/17/19 aspirin 81 mg tablet,delayed 81 mg PO QPM 12/19/20 06/16/24 Unknown release hydrochlorothiazide 12.5 mg capsule 12.5 mg PO DAILY PRN Edema 12/19/20 06/16/24 Unknown potassium citrate 10 mEq (1,080 1,080 mg PO BID 90 days #180 tabs 06/11/22 06/16/24 Unknown mg) tablet,extended release duloxetine 30 mg capsule,delayed 30 mg PO BID 06/16/24 06/16/24 Unknown release finasteride 5 mg tablet 5 mg PO QPM 06/16/24 06/16/24 Unknown gabapentin 300 mg capsule 300 mg PO HS 06/16/24 06/16/24 Unknown metoprolol succinate 25 mg 25 mg PO QAM 06/16/24 06/16/24 Unknown tablet,extended release 24 hr tamsulosin 0.4 mg capsule 0.4 mg PO QPM 06/16/24 06/16/24 Unknown Past Medical History Medical History Borderline anemia Under surveillance BPH with obstruction/lower urinary tract symptoms CAD (coronary artery disease) 2005-s/p stenting to RCA History of kidney stones Hx of gastroesophageal reflux (GERD) Hx of pneumothorax Left (2021), Postprocedural > "nicked the pulmonary sac during pacemaker procedure" > resolved/no issues since Hyperlipidemia Hypertension Iliac artery aneurysm, bilateral Under surveillance, "no concerns" Lower extremity edema Pacemaker 2021, Medtronic, r/t heart block Follows with [facility] Renal mass left, "have been no changes, no worries of malignancy" Spinal stenosis, lumbar region with neurogenic claudication Exercise / Class Metabolic Activity III < 4 Walking/Shop/Light housework Past Family History Family History Mother Cervical cancer Father Renal failure Other Cancer Cardiac disorder Leukemia Past Surgical History Surgical History History of colonoscopy History of cystoscopy History of esophagogastroduodenoscopy (EGD) History of lithotripsy History of right cataract extraction History of total left hip arthroplasty Hx of cardiac cath 2005- RCA stent Hx of left cataract extraction S/P cardiac pacemaker procedure 2021 Past Anesthesia History No Hx of Anesthesia Complications and No Family Hx of Anesthesia Complications History of PONV No Hx of PONV and No Hx of Motion Sickness Social History Smoking Status: Never smoker Do You Dip or Chew Tobacco: No Hx Alcohol Use: No (No ETOH use x 10 years ) Hx Substance Use: No substance use type: does not use Review of Systems Patient denies chest pain, shortness of breath, dyspnea on exertion, fever, chills, cough, wheezing, palpitations. Physical Exam Vital Signs BP 139/71 P 76 TEMP 98.0 SP02 98%RA RESP 16 Physical Full cervical extension range of motion. Full TMJ range of motion. TMD > 3.5 finger breaths Mallampati Score III Dentition: intact, + crowns Lungs: clear throughout to auscultation Cardiac: regular rate and rhythm, no murmurs noted Spine: normal Carotid arteries: negative bruit Extremities: no LE edema Lab Results Anesthesia Preop Results Results Anesthesia Widget: WBC 6.45 K/ul (4.8-10.8) 06/28/24 Hgb 9.9 g/dl (14.0-18.0) L 06/28/24 Hct 28.7 % (42.0-52.0) L 06/28/24 Plt 204 K/uL (130-400) 06/28/24 Na 137 mmol/L (136-145) 06/28/24 K 4.3 mmol/L (3.5-5.1) 06/28/24 Cl 105 mmol/L (98-107) 06/28/24 CO2 25 mmol/L (21-32) 06/28/24 BUN 20 mg/dl (6-23) 06/28/24 Creat 0.90 mg/dl (0.6-1.4) 06/28/24 Glucose Level 103 mg/dl (70-99(Fasting)) H 06/28/24 PT 11.6 Seconds (9.0-12.0) 06/28/24 PTT 24 Seconds (21-31) 06/28/24 INR 1.1 (0.9-1.1) 06/28/24 Blood Type B Positive 06/28/24 Antibody Screen NEGATIVE 06/28/24 Testing Electrocardiogram Date: 06/28/24 AV dual-paced rhythm at 64bpm. Chest X-Ray Date: 05/02/24 Left subclavian pacemaker with leads RA, RV. Heart upper limits of normal. Left-sided arch. Torturous aorta. No pneumothorax or effusion. No focal consolidation or failure. Echocardiogram Date: 11/04/23 LVEF 55-59%. LV wall motion is normal. Moderate LAE. Mild AR. Moderate AV sclerosis. Aortic stenosis is absent. Moderate MR. Mild TR. Estimated PASP 36 mmHg. Mildly enlarged aortic root. Mildly increased concentric LV wall thickness. Other Testing Pacer check Date: 05/28/24 Battery longevity 8.6 years. Mode DDDR. AP 87.4%. CORONER TECHNICIAN 99.8%.
--- NOTE | 2024-07-10 17:54 | History & Physical Report ---
Date of Service July 10, 2024 Assessment & Plan (1) Arthritis of right hip: 88-year-old gentleman with multiple medical comorbidities including pacemaker placement, chronic iron deficiency anemia, hypertension, elevated cholesterol with advanced right hip arthritis. He is also got significant spinal stenosis but I think his hip is the more pressing issue. Certainly anything done with that can be a more predictable operation. He has become more debilitated and had to use a cane. He like to have his hip replaced. Plan: Will yokasta take him to the operating room and plan on doing a total hip replacement. The risks Mente this procedure were explained in depth in detail. Will make his leg lengths as equal as possible. He is in the process of getting medical clearance and cardiac clearance as he is yokasta see his lot technician in a couple days. He is chronically anemic but I do not think this is anything new. With his low hemoglobin he may need a blood transfusion. Will use TXA to try and limit this. He is planning on being discharged to home with some home health and his 's assistance. Will use aspirin for DVT prophylaxis. (2) Spinal stenosis, lumbar region, with neurogenic claudication: (3) Borderline anemia: (4) Hx of gastroesophageal reflux (GERD): (5) Pacemaker: (6) Hyperlipidemia: (7) Hypertension: History of Present Illness Chief Complaint: . Persistent right hip pain and discomfort. Primary Care Provider: Trevro Kumar MD . The patient is an 88-year-old gentleman retired from the [employer] who presents for surgical treatment of his right hip. Pernell a fairly long history of hip problems had his left hip replaced at [facility] in [place] in 1996. He has done well from this. Over the past several years he has developed pain discomfort stiffness in his right hip. He said use a cane to get around for the past couple months. He is got known back disease and spinal stenosis followed by Dr. Bagley. He did have several injections and a PRP injection which did not help as much. He become more debilitated by the pain. He like to have his hip replaced. The patient does have a significant cardiac history and is got a pacemaker in place. He is followed by [facility] cardiology. Is got an upcoming appointment to see them before surgery. Allergies Allergy/AdvReac Type Severity Reaction Status Date / Time bee venom protein (honey bee) Allergy Severe Swelling Verified 06/27/24 09:08 hornet venom Allergy Severe Anaphylaxis Verified 06/27/24 09:08 No Known Drug Allergies Allergy Verified 06/16/24 08:37 Home Medications Medication Instructions Recorded Confirmed Type enalapril maleate 10 mg tablet 10 mg PO QPM 04/25/19 06/16/24 History esomeprazole magnesium 40 mg 40 mg PO DAILY PRN Acid Reflux 04/25/19 06/16/24 History capsule,delayed release (Nexium) omega-3 fatty acids 1,000 mg 1,000 mg PO BID 04/25/19 06/16/24 History capsule (Fish Oil Concentrate) rosuvastatin 20 mg tablet 20 mg PO QAM #30 tabs 04/25/19 06/16/24 History aspirin 81 mg tablet,delayed 81 mg PO QPM 12/19/20 06/16/24 History release hydrochlorothiazide 12.5 mg capsule 12.5 mg PO DAILY PRN Edema 12/19/20 06/16/24 History potassium citrate 10 mEq (1,080 1,080 mg PO BID 90 days #180 tabs 06/11/22 06/16/24 Rx mg) tablet,extended release duloxetine 30 mg capsule,delayed 30 mg PO BID 06/16/24 06/16/24 History release finasteride 5 mg tablet 5 mg PO QPM 06/16/24 06/16/24 History gabapentin 300 mg capsule 300 mg PO HS 06/16/24 06/16/24 History metoprolol succinate 25 mg 25 mg PO QAM 06/16/24 06/16/24 History tablet,extended release 24 hr tamsulosin 0.4 mg capsule 0.4 mg PO QPM 06/16/24 06/16/24 History Past Med/Surg History Problem List Numbness and tingling in both hands Encounter for pre-operative examination Arthritis of right hip Spinal stenosis, lumbar region, with neurogenic claudication (Chronic) Renal mass (Chronic) left 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) Medical History History of kidney stones CAD (coronary artery disease) 2005-s/p stenting to RCA Borderline anemia Under surveillance Hx of gastroesophageal reflux (GERD) Spinal stenosis, lumbar region with neurogenic claudication Renal mass left, "have been no changes, no worries of malignancy" Hx of pneumothorax Left (2021), Postprocedural > "nicked the pulmonary sac during pacemaker procedure" > resolved/no issues since Lower extremity edema Pacemaker 2021, Medtronic, r/t heart block Follows with [facility] Iliac artery aneurysm, bilateral Under surveillance, "no concerns" Hyperlipidemia Hypertension BPH with obstruction/lower urinary tract symptoms Surgical History S/P cardiac pacemaker procedure 2021 Hx of cardiac cath 2006- RCA stent Hx of left cataract extraction History of lithotripsy History of right cataract extraction History of total left hip arthroplasty History of esophagogastroduodenoscopy (EGD) History of cystoscopy History of colonoscopy Family History Mother Cervical cancer Father Renal failure Other Cancer Cardiac disorder Leukemia Social History Smoking Status: Never smoker Second Hand Exposure: No; Do You Dip or Chew Tobacco: No; Hx Alcohol Use: No (No ETOH use x 10 years ) Hx Substance Use: No Preferred Language: Emirati Communication Ability: Effective Visual Impairment: No Limitations Hearing Ability: Normal Cell Tender Helper Required: No Beliefs That Will Affect Care: None marital status: Current Living Situation: Spouse current occupational status: retired Feels Safe at Home: Yes Assistive Devices: Cane, Glasses and Walker Review of Systems All systems reviewed & are unremarkable except as noted in HPI & below. Physical Exam . Physical examination reveals a pleasant elderly male. Looks in pretty good health. His HEENT exam is benign. Neck supple no lymphadenopathy lungs clear to auscultation. Heart has a regular rate and rhythm. Abdomen soft nontender nondistended extremities grossly neuro vas intact as follows. Examination the right hip reveal patient walks with the use of a cane. His leg lengths. Pretty equal. Got a very stiff hip with external rotation contracture about 10 degrees. He has pain with attempted internal rotation. He is neurologically intact. No knee effusion. Constitutional WD/WN, vitals as above Respiratory normal respiratory effort, lungs clear to auscultation Cardiovascular RRR, no murmur, no edema Gastrointestinal (Abdomen) normal bowel sounds, soft, nontender, no hepatosplenomegaly Results & Data Results & Data Laboratory Results . Laboratory results reveal significant anemia with hemoglobin 9.9 hematocrit 28.7. He is got chronic anemia. Rest of his labs look pretty good. Diagnostic Findings . X-rays of the right hip reveal advanced right hip arthritis. Is got complete loss of his superior joint space with Flattening of the femoral head. He is got a left uncemented hip replacement in good position without signs of significant problems. PG Care Time/CCT Total # of Minutes Spent Total Time Spent with Patient: Total time spent is greater than 50% in coordination of care (as documented) at patient's floor/unit and/or counseling patient: Coding Level of Care Code None Diagnoses Arthritis of right hip M16.11 Spinal stenosis, lumbar region, with neurogenic claudication M48.062 Borderline anemia D64.9 Hx of gastroesophageal reflux (GERD) Z87.19 Pacemaker Z95.0 Hyperlipidemia E78.5 Hypertension I10
[~2024-07-20 08:48] MED LIST changes: +ACETAMINOPHEN 500 MG TAB PO SCH; -ASPI-319 PO; +BUPIVACAINE 0.5 % 5 MG/1 ML PF 10ML VIAL ONE; -CHOL1000 PO; -DICL1TAB5 PO; -DIPH25CA65 PO; -DOXA2TAB PO; -ENAL10TA88 PO; -EPP3/2 IM; -GADAVIST IV PRN; -HYDR12.55 PO; -NXM/40 PO; -OMEGCAP2 PEG; -ROSU20TA PO; -TAMS0.4C38 PO
[2024-07-20] MEDS ORDERED: ATROPINE SULFATE 0.1 MG/ML 10ML SYR IV PRN (09:17)
[2024-07-20] MEDS ORDERED: ePHEDrine sulfate 50 MG/ML AMP IV PRN (09:17)
[2024-07-20] MEDS ORDERED: ONDANSETRON INJ 2 MG/ML 2 ML VIAL IV PRN ×2 (09:17→12:53)
[2024-07-20] MEDS ORDERED: fentaNYL citrate PF 100 MCG/2 ML VIAL IV PRN (09:17)
[2024-07-20] MEDS: ACETAMINOPHEN 500 MG TAB PO SCH ×2 (09:27→14:18)
[2024-07-20] MEDS: CeleBREX 200 MG CAP PO SCH ×2 (09:28→13:42)
[2024-07-20] MEDS: FAMOTIDINE 20 MG TAB PO SCH ×2 (09:28→13:43)
[2024-07-20] MEDS: LR 60ML/HR IV SCH ×2 (09:28→13:44)
[2024-07-20] MEDS: METOCLOPRAMIDE HCL 10 MG TABLET PO SCH ×2 (09:28→13:44)
[2024-07-20] MEDS: LR 500ML BOLUS, THEN 15ML/HR IV SCH ×2 (09:29→13:43)
[2024-07-20] MEDS ORDERED: MIDAZOLAM HCL 1 MG/ML 2ML VIAL ONE (09:49)
--- NOTE | 2024-07-20 10:01 | History & Physical Bridge Note ---
Date of Service July 20, 2024 History & Physical Bridge Note I have examined the patient, reviewed the History & Physical and in the interval since the performance of the History & Physical I have noted the following changes of clinical significance: no changes noted
[2024-07-20] MEDS: TRANEXAMIC ACID 1,000 MG **IV Pre-op IV SCH ×2 (10:02→13:44)
[2024-07-20] MEDS: ceFAZolin 2000MG 2,000 MG/15 ML SYR IV SCH ×3 (10:13→16:53)
[2024-07-20] MEDS ORDERED: LIDOCAINE 2% 2 ML VIAL/AMP(20MG/ML) INFIL ONE (10:23)
[2024-07-20] MEDS ORDERED: PROPOFOL IV EMULSION 10 MG/ML 20 ML VIAL IV ONE (10:23)
[2024-07-20] MEDS: BUPIVACAINE/EPINEPHRINE 0.5% MPF 1:200,000 30 ML VIAL ONE (10:48)
[2024-07-20] MEDS ORDERED: PHENYLEPHRINE 100MCG/ML 5ML SYR ONE (11:02)
--- NOTE | 2024-07-20 11:40 | Operative Report ---
PG Post Operative Report Pre & Post Diagnosis Operation Date: 07/20/24 10:40 Pre-Op Diagnosis: Right Hip Degenerative Joint Disease Post-Op Diagnosis: Right Hip Degenerative Joint Disease I identified the patient and participated in the time-out.: Yes Procedure Operation Date: 07/20/24 10:40 Actual Procedures p Right Total Hip Arthroplasty, Uncemented(Right) - Abiodun Diana MD Surgeon Abiodun Diana MD Book Canvasser Isidro Jackson PA-C Estimated Blood Loss 100 Findings Consistent with Post-Op Diagnosis Operative findings were advanced right hip DJD. He extensive grade 4 [id number] disease of the femoral head and acetabulum. Specimens Right femoral head sent for pathology. Anesthesia Type Spinal MAC Complications none Disposition Accompanied Patient To Recovery: No Indications Patient is an 88-year-old fairly active gentleman whose had a several year history of increasing right hip pain and discomfort. Is also got a known history of spinal stenosis. He has been through extensive conservative t reatment pain become more disabling. He failed conservative measures. X-rays show advanced hip arthritis. He elected proceed with total hip arthroplasty in hopes of helping his hip pain. He was fully aware that this is not going to fix his spine issue. Description of Procedure Operative implants consists of: 1. Biomet G7 size 54 mm acetabular shell. 2. 6.5 cancellous acetabular screws 1 at 35 mm length and 1 of 30 mm length. 3. [place] hole skip operator. 4. Highly cross-linked polyethylene liner with a 54 mm outer diameter and 36 mm inner diameter. 5. DePuy Corail size 12 KLA femoral stem. 6. +5/36 mm ceramic articular ball. The patient was taken to the op room, identified, and placed on the operating table in the supine position. All conductors were appropriately padded. IV antibiotics fibra anesthesia team. A spinal anesthetic been implemented holding area. The patient is then placed in the left lateral cubitus position. An a xillary roll was placed. A stool Birkett position was used for positioning. The right hip and leg were then prepped and draped in usual sterile fashion. A posterolateral approach of the right hip was then performed to a curvilinear incision centered over the greater trochanter. Sharp dissection Through the subcutaneous tissues down to the level of the IT band gluteal fascia. The IT band gluteal fascia incised longitudinally in line with skin incision. The underlying greater bursa was excised. The piriformis and external rotators along with the posterior hip joint capsule were then released from the posterior aspect the hip as a single layer. Great care was taken throughout the procedure protect the sciatic nerve at all times. Hip was internally rotated and dislocated. A femoral neck osteotomy cut was made with Final Cut 12 mm above the lesser trochanter. Femoral head was removed and sent for pathology. The femur was retracted anteriorly. Attention was then drawn to the acetabulum. The acetabular labrum was excised. The pulmonary fat was excised. Sequential reaming the acetabular was then performed beginning with size 47 and progressing up to 53. I reamed a bit with a 54 reamer and then placed a 54 mm Biomet G7 acetabular shell in about 40 degrees lateral opening and 20 degrees of anteversion. It was fixed with two 6.5 screws. A trial liner was placed. Attention drawn the femur. The proximal femur was entered with a Peel cutter followed by canal finder. I then broached beginning with size 8 and progressing to a 12. I did not think I could fit the 13 down. We trialed the 12 hip and it was fully stable in full extension and external rotation and flexion to 90 degrees into rotation over 50 degrees. Leg lengths seemed fairly equal and soft tissue tension appropriate. I elected to place these implants. All trial implants were removed. An apex hole skip operator was placed. Highly cross-linked polyethylene liner was placed. A size 12 KLA femoral stem was impacted in position. +5/36 mm ceramic articular ball was placed. Hip was relocated. Was found to be stable. Attention drawn toward closing. The wounds irrigated close also pulsatile lavage solution. I did inject locally with 60 cc of half percent Marcaine with epinephrine. The posterior capsule and external rotators then repaired through drill holes in the posterior trochanter with #2 Tycron suture. The IT band gluteal fascia then closed #1 PDS suture running fashion for subcutaneous tissues then closed with 2 layers the deep layer #1 Vicryl suture and subcutaneous tissues with 2-0 Dexon suture in a buried interrupted fashion. Skin was then closed with skin jose. Leg was then cleaned and dried a sterile dressing with Xeroform, 4 fours, sterile ABD pad, foam tape was applied. The patient then transferred to the recovery room in stable condition. Patient tolerated procedure well and there were no complications. Isidro Jackson, my physician assistant guest services manager, was present for the entire procedure. His assistance was essential and required for appropriate patient positioning, prepping and draping, surgical exposure, performing the technical details of the operation, placement the implants, closure of the wound, and placement of the sterile bandage. I attest to the content of the Intraoperative Record and any orders documented therein. Any exceptions are noted below.
--- NOTE | 2024-07-20 12:26 | Anesthesiology Progress Note ---
Date of Service July 20, 2024 Anesthesia Post Procedure Vital Signs Vital Signs: Temp Pulse Pulse Resp BP Pulse Ox O2 Del Method 07/20/24 12:25 60 16 124/65 96 Room Air 07/20/24 12:15 36.4 C L 60 16 122/63 98 Room Air 07/20/24 12:05 60 16 125/64 97 Room Air 07/20/24 11:55 64 17 128/65 97 Room Air 07/20/24 11:45 60 18 116/63 96 Room Air 07/20/24 11:35 61 17 127/58 L 95 Room Air 07/20/24 11:25 36.8 C 67 19 126/58 L 97 Room Air 07/20/24 09:18 36.4 C L 71 20 164/98 H 98 Room Air Transfer of Care Handoff Completed per policy Notes Mental Status: alert / awake / arousable and participated in evaluation Patient Amnestic to Procedure: Yes Nausea / Vomiting: adequately controlled Pain: adequately controlled Airway Patency, RR, SpO2: stable & adequate BP & HR: stable & adequate Hydration State: stable & adequate Neuraxial Anesthesia: was administered and sensory block is resolving Anesthetic Complications: no major complications apparent and Pt Satisfied with anesthetic care
[2024-07-20] MEDS ORDERED: MAGNESIUM HYDROXIDE SUSP 30 ML UDC PO PRN (12:53)
[2024-07-20] MEDS ORDERED: ALUMINUM/MAGNESIUM SUSP 30 ML UDC PO PRN (12:53)
[2024-07-20] MEDS ORDERED: HYDROmorphone INJ 0.5 MG/0.5 ML SYR IV PRN (12:53)
[2024-07-20] MEDS ORDERED: hydroCHLOROthiazide 25 MG TAB PO PRN (12:53)
[2024-07-20] MEDS ORDERED: PANTOprazole 40 MG TAB PO PRN (12:53)
[2024-07-20] MEDS ORDERED: bisacodyL 10 MG SUPP PR PRN (12:53)
[2024-07-20] MEDS ORDERED: METOCLOPRAMIDE HCL INJ 5 MG/ML 2 ML VIAL IV PRN (12:53)
[2024-07-20] MEDS ORDERED: NALOXONE HCL 0.4 MG/1 ML VIAL/CARP IV PRN (12:53)
[2024-07-20] MEDS ORDERED: ACETAMINOPHEN 500 MG TAB PO SCH (14:00)
[2024-07-20] MEDS: KETOROLAC TROMETHAMINE 15 MG/ML VIAL IV SCH (14:18)
--- OUTSIDE RECORDS SUMMARY | 2024-07-20 15:24 | External Medical Summary | Summary of Care ---
Author Name Unknown Organization [facility] Address [address] [place] [address] Phone [phone] Care Team Providers Care Manager Culture Name Role Phone Trevor Kumar MD Primary Care Provider + Reason for Visit * Reason Comments Follow Up Encounter Details Date Type Department Care Team (Latest Contact Info) Description 07/13/2024 2:00 PM EDT Office Visit Cardiology, [facility] [address] [place] [phone] Kumar Schuler PA-C [address] [place] [phone] Preoperative cardiovascular examination*; Dyslipidemia; CHB (complete heart block) ([facility]); HTN, goal below 130/80; Cardiac pacemaker in situ; PAF (paroxysmal atrial fibrillation) ([facility]); SSS (sick sinus syndrome) ([facility]) Allergies Active Allergy Reactions Criticality Noted Date Comments Bee Venom Edema Other 06/23/2016 Hornet Venom High 12/03/2021 Other reaction(s): ANAPHYLAXIS documented as of this encounter (statuses as of 07/16/2024) Medications Medication Sig Dispensed Refills Start Date End Date Status EPINEPHrine, anaphylaxis, (EPI-PEN) 0.3 MG/0.3ML SOAJ injection For a severe reaction: Place orange end against the outer thigh, press firmly, hold in place for 10 seconds and go to the Emergency room. 2 Device 3 07/28/2016 Active Doxazosin Mesylate 2 MG Oral Tablet (Cardura)Indicati ons:Coronary artery disease involving galena coronary artery of galena heart without angina pectoris TAKE 1 TABLET DAILY 90 Tablet 3 10/09/2021 Active Aspirin 81 MG Oral Tablet Delayed Release Take 1 Tablet by mouth in the morning. 100 Tablet 07/09/2022 Active Tamsulosin HCl 0.4 MG Oral Capsule (Flomax) Take 1 Capsule by mouth in the morning. 90 Capsule 3 12/20/2023 Active Metoprolol Succinate ER 25 MG Oral Tablet Extended Release 24 Hour (Toprol XL) Take 0.5 Tablets by mouth daily. 45 Tablet 3 01/12/2024 Active Finasteride 5 MG Oral Tablet (Proscar) Take 1 Tablet by mouth in the morning. 90 Tablet 3 01/18/2024 Active Enalapril Maleate 10 MG Oral Tablet (Vasotec)Indicati ons:Coronary artery disease involving galena coronary artery without angina pectoris Take 1 Tablet by mouth in the morning. 90 Tablet 1 02/10/2024 Active Esomeprazole Magnesium 40 MG Oral Capsule Delayed ReleaseIndication s:Gastroesophagea l reflux disease TAKE 1 CAPSULE DAILY 1 HOURBEFORE THE FIRST MEAL OF THE DAY 90 Capsule 1 04/06/2024 Active Additional Information Patient taking differently: 40 mg Oral DAILY PRN, TAKE 1 CAPSULE DAILY 1 HOURBEFORE THE FIRST MEAL OF THE DAY, Reported on 07/13/2024 Potassium Citrate ER 10 MEQ (1080 MG) Oral Tablet Extended Release (Urocit-K) Take 1 Tablet by mouth in the morning and 1 Tablet before bedtime. 180 Tablet 3 05/09/2024 Active [id number] Ethyl Esters 1 GM Oral Capsule (Lovaza)Reyeso ns:Dyslipidemia, goal LDL below 100,Coronary artery disease involving galena coronary artery without angina pectoris Take 1 Capsule by mouth in the morning and 1 Capsule before bedtime. 180 Capsule 3 05/23/2024 Active Additional Information Patient not taking.Reported on 07/13/2024 hydroCHLOROthiazi de 12.5 MG Oral CapsuleIndication s:Essential hypertension with goal blood pressure less than 140/90 Take one 2-3 days per week as need for edema 15 Capsule 11 05/23/2024 Active Rosuvastatin Calcium 20 MG Oral Tablet (Crestor)Indicati ons:Coronary artery disease involving galena coronary artery of galena heart without angina pectoris,HTN, goal below 130/80,Dyslipidem ia, goal LDL below 100 Take 1 Tablet by mouth in the morning. 90 Tablet 3 05/23/2024 Active Gabapentin 300 MG Oral Capsule (Neurontin)Indica tions:Arthralgia of right hip,Spinal stenosis of lumbar region with neurogenic claudication Take 1 Capsule by mouth at bedtime. 30 Capsule 1 05/23/2024 Active DULoxetine HCl 30 MG Oral Capsule Delayed Release Particles (Cymbalta) Take 1 Capsule by mouth in the morning and 1 Capsule before bedtime. 60 Capsule 3 06/08/2024 Active Fish Oil 1000 MG Oral Capsule Take 1 Capsule by mouth in the morning. Active Furosemide 40 MG Oral Tablet (Lasix) Take 1 Tablet by mouth daily as needed. 07/06/2022 Discontinue d(Patient preference/ discontinua tion) documented as of this encounter (statuses as of 07/16/2024) Active Problems Problem Noted Date Diagnosed Date Primary osteoarthritis of right hip 06/22/2024 Intermittent complete atrioventricular block 06/2023 S/P placement of cardiac pacemaker 07/06/2022 Ingrown toenail of both feet 11/27/2021 Anemia 05/22/2019 Kidney disease, chronic, stage III (GFR 30-59 ml /min) 03/06/2019 Overview: Per CKD protocol Spinal stenosis of lumbar re gion with neurogenic claudication 11/03/2018 Low testosterone in male 08/26/2018 Nephrolithiasis 08/26/2018 Hiatal hernia 11/02/2017 Left renal mass 11/02/2017 Overview: NO shock wave therapy. Monitoring @[facility]eron[facility]. [phone]. 11/16 left upper pole mass is stable. 11/[address] Judge. Also saw [facility] uro Dr Viet Geronimo/[facility]--recommend monitro Q6mo MRI there.stable 1.9cm upper left kidney mass. Iliac artery aneurysm, bilateral 11/02/2017 Overview: 11/14 inc from 2011. Ashli 1-2y Blood in urine 10/23/2017 Overview: Kidney stones, monitoring mass @[facility]-stable 01/2020. Discharged. No f/u needed. 10/14 CT ordered, uro consult order Cholelithiases 10/19/2017 History of atypical nevus 04/27/2017 Overview: left 4th toe 03/12 atypical melanocytic hyperplasia Medical home patient encounter 10/28/2016 Overview: 2nd opinion back surgeon in [place] agreed avoid surgery for stenosis/OA. 06/18 aorta vasc--NO iliac aneurysms noted. Anemia. See 12/12 Heme note. 11/14 +left renal mass. +b/l iliac aneurysm. Ashli 10/14 [facility] WNL. 05/13 full code. 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 DDD (degenerative disc disease), lumbar 02/23/20 15 GERD (gastroesophageal reflux disease) 2 Essential hypertension with goal blood pressure less than 140/90 Dyslipidemia, goal LDL below 100 BPH without obstruction/lower urinary tract symp toms CAD (coronary artery disease) documented as of this encounter (statuses as of 07/16/2024) Resolved Problems Problem Noted Date Diagnosed Date Resolved Date Left kidney mass 02/23/2018 08/26/2018 Insect sting allergy, current reaction 07/29/2016 03/03/2019 Need for pneumococcal vaccine 06/23/2016 10/28/2016 Wasp sting 06/12/2016 10/28/2016 Skin lesion 03/06/2016 10/28/2016 Urinary frequency 01/03/2016 10/28/2016 Nausea with vomiting 01/03/2016 017 Acute bronchitis, complicated 06/10/2015 01/03/2016 Abdominal pain, generalized 11/23/2013 05/14/2014 Hearing loss 11/23/2013 05/14/2014 Neoplasm of uncertain behavior of skin 11/23/2013 05/14/2014 Need for shingles vaccine 05/18/2013 Lumbago 05/18/2013 01/03/2016 Screening for prostate cancer 11/14/2012 05/18/2013 Special screening for malign ant neoplasms, colon 05/20/2011 11/13/2013 Gastrointestinal hemorrhage 05/20/2011 05/18/2013 Impotence of organic origin 07/29/2010 11/13/2013 Acute bronchitis, complicated 07/07/2010 05/18/2013 Chronic coronary artery disease 11/13/2013 Overview: stent x 1 given after stress test Internal hemorrhoids 014 Diverticulitis of colon 04/28 documented as of this encounter (statuses as of 07/16/2024) Immunizations Name Administration Dates Next Due COVID-19 mRNA, LNP-s, No Pre serve, 2-Dose Series ([employer]) 02/08/2022,07/23/2021,12/11/2020,10/28 COVID-19, MRNA-LNP, 23-24, P F, 30 MCG/0.3 mL, 12 YRS AND ABOVE, IM ([facility]) 08/06/2023 Covid-19, Mrna, Lnp-s, Pf, B ivalent, 30 Mcg, IM, 12 yrs and above ([employer]) 06/26/2022 Pneumococcal Conjugate Vacc, 13 Valent (Prevnar) 06/23/2016 Pneumococcal Polysaccharide PPV23 (Pneumovax) 02/25/2005 RSV Vac., Bivalent, Perfusio n F, Pf,0.5 Ml (Abrysvo) 07/22/2023 Season Influenza, Quad, PF, Adjuvanted, 65+ Yrs, IM (FLUAD) 06/12/2020 Seasonal Influenza Vac., MDV , IM, 0.5 mL (Fluzone) 06/27/2014,06/26/2013,07/07/2012,05/29,07/18/2010 Seasonal Influenza, High Dos e, Trivalent, PF, IM (Fluzone HD) 06/19/2024 Seasonal Influenza, PF, 6 M & above, IM , (FluLaval or Fluzone) 07/01/2018,07/24/2017 07/24/2018 Seasonal Influenza, Quadriva lent Hd (Fluzone Hd) 06/25/2023,06/11/2022,06/06/2021 Seasonal Influenza, Quadriva lent, No Preserve, IM 06/23/2016,06/28/2015 Seasonal Influenza, Trivalen t, Adjuvanted, 65+ YRS, PF, (Fluad) 06/26/2019 TD, Preservative Free 02/19/2011 Varicella Zoster Vaccine (Adult) 05/18/2013 Zoster Vaccine Recombinant (Shingrix) 08/30/2019 ,03/03/2019 documented as of this encounter Social History Tobacco Use Types Packs/Day Years Used Date Smoking Tobacco: Never Smokeless Tobacco: Never Tobacco Cessation:Counseling Given: Not Answered Comments:no passive smoke Alcohol Use Standard Drinks/Week Comments Yes 0.8 (1 standard drink = 0.6 oz p ure alcohol) rare. PHQ-2 Answer Date Recorded PHQ Adult Total Score 0 03/06/2024 Hunger Vital Sign Answer Date Recorded Within the past 12 months, y ou worried that your food would run out before you got the money to buy more. Never true 05/09/20 24 Within the past 12 months, t he food you bought just didn't last and you didn't have money to get more. Never true 05/09/2024 Childcare Answer Date Recorded Do you feel overwhelmed with taking care of a child, family member or friend? No 05/09/2024 Does your family need help f inding childcare? (Household - for ages 0-17 years) Not on file 05/09/2024 Clothing Answer Date Recorded Have you been unable to get clothing when it was really needed? No 05/09/2024 Is your family able to get c lothes or diapers when needed? (Household - for ages 0-17 years) Not on file 05/09/2024 Personal Safety Answer Date Recorded Do you feel unsafe or have concerns for your saf ety? No 05/09/2024 Do you have concerns for you r family's safety? (Household - for ages 0-17 years) Not on file 05/09/2024 Utilities Answer Date Recorded Do you have trouble paying y our heating, water, or electric bill? No 05/09/2024 Is your family able to pay t he heat, water, or electric bill? (Household - for ages 0-17 years) Not on file 05/09/2024 Does your family have access to good internet? (Household - for ages 0-17 years) Not on file 05/09/2024 Employment Status Answer Date Recorded Are you unemployed or without regular income? No 05/09/2024 Does the household have a re gular source of income? (Household - for ages 0-17 years) Not on file 05/09/2024 Social Connections Answer Date Recorded How often do you feel lonely or isolated from th ose around you? Rarely 05/09/2024 Financial Resource Strain Answer Date R ecorded Do you have any trouble payi ng for your medications, or do you think you might in the future? No 05/09/2024 Does your family have troubl e paying for medicine? (Household - for ages 0-17 years) Not on file 05/09/2024 Transportation Needs Answer Date Record ed Do you have trouble getting a ride to medical visits or work? (Adult - for ages 18 years and over) Not on file 05/09/2024 Does your family have a hard time getting a ride to doctors visits? (Household - for ages 0-17 years) Not on file 05/09/2024 Has lack of transportation k ept you from medical appointments, meetings, work, or from getting things needed for daily living? Check all that apply. No 05/09/2024 Do you (or your family) have trouble finding or paying for a ride (transportation)? (Household - for ages 0-17 years) Not on file 05/09/2024 Housing Stability Answer Date Recorded Do you currently live in a s helter or have no steady place to sleep at night? No 05/09/2024 Do you think you are at risk of becoming homeless? (Adult - for ages 18 years and over) Not on file 05/09/2024 Does your family worry about paying for your home or becoming homeless? (Household - for ages 0-17 years) Not on file 0 05/09/2024 Are you homeless or worried that you might be in the future? No 05/09/2024 Are you (or your family) owen eless or worried that you might be in the future? (Household - for ages 0-17 years) Not on file Food Insecurity Answer Date Recorded Do you need food for this week? No 05/09/2024 Are you able to get enough f ood for your family? (Household - for ages 0-17 years) Not on file 05/09/2024 Does your family need food t his week? (Household - for ages 0-17 years) Not on file 05/09/2024 Do you always have enough fo od for your family? (Household - for ages 0-17 years) Not on file 05/09/2024 Sex and Gender Information Value Date Recorded Sex Assigned at Male 08/26/2022 7:29 PM EST Gender Identity Male 08/26/2022 7:29 PM EST Sexual Orientation Straight 08/26/2022 7: 29 PM EST Job Start Date Occupation Industry Not on file Not on file Not on file documented as of this encounter Last Filed Vital Signs Vital Sign Reading Time Taken Comments Blood Pressure 116/64 07/13/2024 1:58 PM EDT Pulse 68 07/13/2024 1:58 PM EDT Temperature - - Respiratory Rate 20 07/13/2024 1:58 PM EDT Oxygen Saturation - - Inhaled Oxygen Concentration - - Weight 84.1 kg (185 lb 8 oz) 07/13/2024 1:58 PM EDT Height - - Body Mass Index 30.87 06/09/2024 12:50 PM EDT documented in this encounter Progress Notes * Kumar Schuler PA-C - 07/13/2024 2:06 PM EDT History of Present Illness: Shon Dobbins is a 88 year old male followed by Dr. Torres, with ongoing issues: Atherosclerotic coronary disease with remote coronary stenting of the right coronary artery, 2005. Symptomatic bradycardia, intermittent complete heart block status post dual- chamber pacemaker insertion June 23, 2022, [employer] Ofe [id number] Postoperative pneumothorax with prompt resolve Brief episodes of paroxysmal atrial fibrillation on pacer interrogation, not prescribed anticoagulation due to request, low PAF burden, increased risk of bleeding, history of anemia Hypertension. Hyperlipidemia. Enlarged aortic root Mitral regurgitation Mild aortoiliac disease, without aneurysmal dilatation Left renal mass, stable followed by Urology [facility] Chronic iron deficiency anemia CKD Anemia Chronic back pain BPH GERD Hiatal hernia Notes plans for upcoming elective right hip replacement by Dr. Diana on Wednesday, July 19, 2024, at [facility], considerable right hip discomfort interfering with all activities including simple walking, no longer able to be active. Dyspnea reported by his noticed with 1flight of stairs. Lower extremity peripheral edema is aided by HCTZ which he typically takes about once per month. No resting or nocturnal dyspnea. No chest pain. No palpitations. No dizziness, near syncope, or syncope. No recent colds, fevers or chills. No epistaxis, hemoptysis, melena, hematochezia, or hematuria. Patient Active Problem List Diagnosis Essential hypertension with goal blood pressure less than 140/90 Dyslipidemia, goal LDL below 100 BPH without obstruction/lower urinary tract symptoms GERD (gastroesophageal reflux disease) CAD (coronary artery disease) DDD (degenerative disc disease), lumbar Medical home patient encounter Spondylosis of lumbar region without myelopathy or radiculopathy History of atypical nevus Cholelithiases Blood in urine Hiatal hernia Left renal mass Iliac artery aneurysm, bilateral (HCC) Low testosterone in male Nephrolithiasis Spinal stenosis of lumbar region with neurogenic claudication Kidney disease, chronic, stage III (GFR 30-59 ml/min) (HCC) Anemia Ingrown toenail of both feet S/P placement of cardiac pacemaker Intermittent complete atrioventricular block (HCC) Primary osteoarthritis of right hip Past Medical History: Diagnosis Date BPH without obstruction/lower urinary tract symptoms CAD (coronary artery disease) 2006 stent placed Cholelithiases 10/19/2017 Chronic coronary artery disease stent x 1 RCA given after stress test- Dr Torres Diverticulitis of colon GERD (gastroesophageal reflux disease) 12/03/2011 Hiatal hernia 11/02/2017 HTN, goal below 130/80 2004 Hyperlipidemia LDL goal < 70 Iliac artery aneurysm, bilateral (HCC) 11/02/2017 Internal hemorrhoids Left kidney mass 02/23/2018 Left renal mass 11/02/2017 Nephrolithiasis 08/26/2018 Spondylosis of lumbar region without myelopathy or radiculopathy 10/28/2016 Past Surgical History: Procedure Laterality Date ABLATION PERC IMAGE GUIDED NERVE PLEXUS/TRUNCAL NERVE Right 12/12/2020 L4-S1 right side nerve ablations. Dr Tejeda [facility] COLONOSCOPY 09/27/2006 repeat 2017, diverticual COLORECTAL CANCER SCREEN; NOT AT RISK 06/02/2011 diverticulosis & int. hemorrhoids CYSTOSCOPY 01/17/2012 stent placed CYSTOSCOPY 02/25/2012 stent removal FRAGMENT KIDNEY STONE BY SHOCK WAVE 02/12/2012 ESWL (Extracorporeal Shock Wave Lithotripsy) INJECT DX/THER SUBSTANCE INTERLAMINAR LUMBAR/SACRAL W IMAGE GUIDE 08/22/2018 INJECTION SPINE LUMBAR OR SACRAL performed by Mike Franco DO at OR [facility] INJECT DX/THER SUBSTANCE INTERLAMINAR LUMBAR/SACRAL W IMAGE GUIDE 10/13/2018 INJECTION SPINE LUMBAR OR SACRAL performed by Mike Franco DO at OR [facility] L-/S-SPINE PARAVERTEBRAL FACET INJ,1 LEVEL 05/31/2014 L-/S-SPINE PARAVERTEBRAL FACET INJ,1 LEVEL performed by Gordon Caal DO at OR [facility] L-/S-SPINE PARAVERTEBRAL FACET INJ,1 LEVEL 08/26/2020 L-/S-SPINE PARAVERTEBRAL FACET INJ, 1 LEVEL performed by Mike Franco DO at OR [facility] L-/S-SPINE PARAVERTEBRAL FACET INJ,1 LEVEL 10/03/2020 L-/S-SPINE PARAVERTEBRAL FACET INJ, 1 LEVEL performed by Mike Franco DO at OR [facility] L-/S-SPINE PARAVERTEBRAL FACET INJ,1 LEVEL 02/21/2021 L5-S1 Dr Tejeda IZABEL--helped a few days L-/S-SPINE PARAVERTEBRL FACET INJ,2 LEVELS 05/31/2014 L-/S-SPINE PARAVERTEBRL FACET INJ,2 LEVELS performed by Gordon Caal DO at OR [facility] L-/S-SPINE PARAVERTEBRL FACET INJ,2 LEVELS 08/26/2020 L-/S-SPINE PARAVERTEBRAL FACET INJ, 2 LEVELS performed by Mike Franco DO at OR [facility] L-/S-SPINE PARAVERTEBRL FACET INJ,2 LEVELS 10/03/2020 L-/S-SPINE PARAVERTEBRAL FACET INJ, 2 LEVELS performed by Mike Franco DO at OR [facility] MA ANESTH,PACEMAKER INSERTION 06/23/2022 Dr Alonzo @[facility]. dual lead REMOVE CATARACT, INSERT LENS PROSTH 09/27/2009 Cataract extraction RIGHT REMOVE CATARACT, INSERT LENS PROSTH Left 2022 Left EXTRACAPSULAR CATARACT REMOVAL WITH INTRAOCULAR LENS [[id number]] performed by David Edgar MD at OR [facility] TOTAL HIP REPLACEMENT & PROSTHESIS 09/27/1996 Hip Replacement LEFT UPPER GI ENDOSCOPY/EXAM Family History Problem Relation Name Age of Onset Cancer Mother uterine CA age 40's Other (Other) Father age 81 renal failure Cancer Sister leukemia age 60 Cancer Sister breast CA Heart Disorder Brother CAD, CBAG x 3 Heart Disorder Brother pacemaker Asthma Daughter Social History Socioeconomic History Marital status: Spouse name: Not on file Number of children: Not on file Years of education: Not on file Highest education level: Not on file Occupational History 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 Drug use: No Sexual activity: Not Currently Partners: Female Comment: 2 children 6 total. Other Topics Concern Not on file Social History Narrative Enjoys walking One on One 3 x week Social Determinants of Health Financial Resource Strain: Low Risk (05/09/2024) Financial Resource Strain Do you have any trouble paying for your medications, or do you think you might in the future? (Adult - for ages 18 years and over): No Does your family have trouble paying for medicine? (Household - for ages 0-17 years): Not on file Food Insecurity: No Food Insecurity (05/09/2024) Food Insecurity Do you need food for this week? (Adult - for ages 18 years and over): No Are you able to get enough food for your family? (Household - for ages 0-17 years): Not on file Does your family need food this week? (Household - for ages 0-17 years): Not on file Do you always have enough food for your family? (Household - for ages 0-17 years): Not on file Transportation Needs: No Transportation Needs (05/09/2024) Transportation Needs Do you have trouble getting a ride to medical visits or work? (Adult - for ages 18 years and over):Not on file Does your family have a hard time getting a ride to doctors visits? (Household - for ages 0-17 years): Not on file Has lack of transportation kept you from medical appointments, meetings, work, or from getting things needed for daily living? Check all that apply. (Adult - for ages 18 years and over): No Do you (or your family) have trouble finding or paying for a ride (transportation)? (Household - for ages 0-17 years): Not on file Social Connections: Socially Integrated (05/09/2024) Social Connections How often do you feel lonely or isolated from those around you? (Adult - for ages 18 years and over): Rarely Housing Stability: Low Risk (05/09/2024) Housing Stability Do you currently live in a jail or have no steady place to sleep at night? (Adult - for ages 18 years and over): No Do you think you are at risk of becoming homeless? (Adult - for ages 18 years and over): Not on file Does your family worry about paying for your home or becoming homeless? (Household - for ages 0-17 years): Not on file Are you homeless or worried that you might be in the future? (Adult - for ages 18 years and over): No Are you (or your family) homeless or worried that you might be in the future? (Household - for ages0-17 years): Not on file Complete Review of Systems is as stated above, negative, or noncontributory. Review of patient's allergies indicates: Allergen Reactions Hornet Venom Other reaction(s): ANAPHYLAXIS Bee Venom Edema Other Current Outpatient Medications Medication Sig Dispense Refill EPINEPHrine, anaphylaxis, (EPI-PEN) 0.3 MG/0.3ML SOAJ injection For a severe reaction: Place orangeend against the outer thigh, press firmly, hold in place for 10 seconds and go to the Emergency room. 2 Device 3 Doxazosin Mesylate 2 MG Oral Tablet (Cardura) TAKE 1 TABLET DAILY 90 Tablet 3 Aspirin 81 MG Oral Tablet Delayed Release Take 1 Tablet by mouth in the morning. 100 Tablet 0 Tamsulosin HCl 0.4 MG Oral Capsule (Flomax) Take 1 Capsule by mouth in the morning. 90 Capsule 3 Metoprolol Succinate ER 25 MG Oral Tablet Extended Release 24 Hour (Toprol XL) Take 0.5 Tablets by mouth daily. 45 Tablet 3 Finasteride 5 MG Oral Tablet (Proscar) Take 1 Tablet by mouth in the morning. 90 Tablet 3 Enalapril Maleate 10 MG Oral Tablet (Vasotec) Take 1 Tablet by mouth in the morning. 90 Tablet 1 Esomeprazole Magnesium 40 MG Oral Capsule Delayed Release TAKE 1 CAPSULE DAILY 1 HOURBEFORE THE FIRST MEAL OF THE DAY (Patient taking differently: Take 1 Capsule by mouth daily as needed. TAKE 1 CAPSULE DAILY 1 HOURBEFORE THE FIRST MEAL OF THE DAY) 90 Capsule 1 Potassium Citrate ER 10 MEQ (1080 MG) Oral Tablet Extended Release (Urocit-K) Take 1 Tablet by mouth in the morning and 1 Tablet before bedtime. 180 Tablet 3 Rosuvastatin Calcium 20 MG Oral Tablet (Crestor) Take 1 Tablet by mouth in the morning. 90 Tablet 3 Gabapentin 300 MG Oral Capsule (Neurontin) Take 1 Capsule by mouth at bedtime. 30 Capsule 1 DULoxetine HCl 30 MG Oral Capsule Delayed Release Particles (Cymbalta) Take 1 Capsule by mouth in the morning and 1 Capsule before bedtime. 60 Capsule 3 Fish Oil 1000 MG Oral Capsule Take 1 Capsule by mouth in the morning. [id number]-jwva Ethyl Esters 1 GM Oral Capsule (Lovaza) Take 1 Capsule by mouth in the morning and 1 Capsule before bedtime. (Patient not taking: Reported on 07/13/2024) 180 Capsule 3 hydroCHLOROthiazide 12.5 MG Oral Capsule Take one 2-3 days per week as need for edema 15 Capsule 11 No current facility-administered medications for this visit. OBJECTIVE/PHYSICAL EXAMINATION: BP 116/64 (BP Site: Left Arm, BP Position: Sitting, BP Cuff Size: Large) | Pulse 68 | Resp 20 | Wt 84.1 kg (185 lb 8 oz) | BMI 30.87 kg/m | BSA 1.96 m General: Alert, no distress, comfortable, and cooperative Skin: No rash Eyes: PER. Conjunctiva pink, sclera clear. HENT: Normocephalic. Atraumatic. Neck: No carotid bruits. No JVD. No HJR. Heart: Regular, paced. Grade II/ systolic ejection murmur. Lungs: Clear to auscultation Abdomen: +BS. Soft. Nontender. No masses. No organomegaly. Extremities: Minimal edema. No clubbing. No cyanosis Pulses: Posterior tibial=2/4. Limited neurological examination: No focal deficit. Data: November 04, 2023 TTE Interpretation Summary (as per Dr. Grady): The LV wall thickness is mildly increased (concentric). The left ventricular wall motion is normal. The qualitative LV ejection fraction is 55-59% (normal). The left atrium is moderately enlarged (42-48 ml/m^2). Mild aortic valve regurgitation is present. Moderate aortic valve sclerosis is present. Aortic stenosis is absent. Moderate mitral regurgitation is present. Mild tricuspid regurgitation is present. The estimated pulmonary artery systolic pressure is 36 mm Hg. The aortic root is mildly enlarged at 4.1 cm. Ascending aorta 3.6 cm. Pacemaker interrogation on May 28, 2024 demonstrated appropriate function, 8.8 years remaininglongevity. Time in AT/AF: Less than 0.1%. VT: 2 episodes since May 02, 2024. Atrial paced 87.4%. Ventricular paced 99.8%. 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 Perioperative risks explained. Estimated risk of adverse outcome with noncardiac surgery: Moderate. Functional capacity less than 4 Mets. No new or worsening cardiac symptoms. No recent cardiac interventions. Further cardiac testing would not likely influence management or reduce perioperative risk No overt cardiac contraindications to upcoming right hip replacement Continue metoprolol and aspirin without interruption. Hold enalapril AM of surgery, resuming postoperatively as hemodynamics permit. No HCTZ AM of surgery. Standard pacemaker precautions Routine cardiology follow-up. ER with emergencies. Kumar Schuler PA-C Department of Cardiology I spent a total of 30-39 minutes (exact time 33 mins) on the date of service in preparation, delivery, and documentation of the care provided to Shon Dobbins excluding any time spent in the performance of separately billed services. This visit involved medical care services related to at least one serious condition or complex condition requiring ongoing care. This chart was completed in part ut [employer] Voice Recognition [employer]. Grammatical errors, random word insertions, prounoun errors, and incomplete sentences are an occasional consequence of this system due to software limitations, ambient noise, and hardware issues. Any formal questions or concerns about the content, text, or information contained within the body of this dictation should be directly addressed to theprovider for clarification. documented in this encounter Nursing Notes * Annmarie Gimenez CMA - 07/13/2024 1:56 PM EDT Examination Room: 2 Name: Shno Dobbins Date of : (1935). Reason for Visit: 7M f/u Interim Hospitalization(s): none Problems/Concerns: R hip replacement scheduled 07/19/[address] [facility] with [address]. Diana. Does note LE swellingaround ankles d/t decreased activity. Chest Pain/SOB: Denies CP. More SOBOE, not able to exert himself as much lately due to hip pain. [facility] Discussed: Not applicable [facility] is a way you can talk to your provider online through e-mail. Would you like to sign up? I can activate it for you? ALREADY ACTIVE Patient was instructed to not get up on the exam table until directed and assisted by their provider; patient is to remain seated in the chair/ wheelchair/ exam table for fall prevention and safety reasons. Patient is aware to have assistance to step down off exam table with personnel. Patient voiced full comprehension of instructions. documented in this encounter Plan of Treatment Upcoming Encounters Date Type Department Care Team (Late st Contact Info) Description 08/16/2024 2:00 PM EST Office Visit Podiatry [facility] [address] [place] [address] Prisca Ann, KAT[place] [address] [facility] [place] [address] 08/29/2024 3:00 PM EST Office Visit Interventional Pain Center, [facility] [address] [place] [address] Santhosh Hancock DO [address] [place] [phone] 10/06/2024 12:30 PM EST Hospital Encounter [facility], Operating Room [facility] [address] [place] [phone] Santhosh Hancock, DO [address] [place] [phone] 10/06/2024 12:30 PM EST - 10/06/2024 12:55 PM EST Surgery OR [facility], Operating Room [facility] [address] [place] [phone] Santhosh Hancock, DO [address] [place] [phone] INJECTION SPINE LUMBAR OR SACRAL 10/12/2024 9:00 AM EST Office Visit Dermatology [facility] [address] [facility] [place] [address] Jd Bello MD [address] [facility] [place] [address] 12/22/2024 1:15 PM EDT Office Visit Orthopaedics Spine Surgery, [place] [address] [place] [address] Roshan Darby MD [address] [place] [address] 01/10/2025 1:45 PM EDT Imaging Radiology [facility] [address] [place] [address] 01/12/2025 2:00 PM EDT Office Visit Family Practice [facility] [address] [place] [address] Trevor Kumar MD [address] [place] [address] 01/15/2025 3:30 PM EDT Office Visit Cardiology, [facility] [address] [place] [address] Kumar Schuler PA-C [address] [place] [address] 01/17/2025 1:45 PM EDT Office Visit Urology, [facility] [address] [place] [address] David Aguiar MD [address] [place] [address] Scheduled Procedures Name Priority Associated Diagnoses Date/Ti me INJECTION SPINE LUMBAR OR SACRAL Spinal stenosis of lumbar region without neurogenic claudication 10/06/2024 12:30 PM EST ROBOTIC ARTHROPLASTY TOTAL HIP Primary osteoarthritis of right hip Health Maintenance Due Date Last Done Comments COVID-19 Vaccine ( season) 2024 08/06/2023, 06/26/2022, 02/08/2022, Additional history exists Adult Wellness Visit 03/06/2025 03/06/2024, 06/06/20 21 Depression Screening 03/06/2025 03/06/2024 CKD PHOS USE SMARTSET 65609 03/20/2025 03/20/2024, 0 03/11/2021 Albumin/Creatinine Ratio 05/23/2025 024, 05/18/2023, 12/16/2021 CKD HGB USE SMARTSET 76804 07/03/202507/03, 07/03/2024, 06/28/2024, Additional history exists DTap/Tdap Vaccines (2 - Td or Tdap) 02/24/2028 02/23/2018 (Discussed), 02/19/2011 Pneumococcal Vaccine: 65+ Years Completed 06/23/2016, 02/25/2005 Zoster Vaccines Completed 08/30/2019, 03/2019, 05/18/2013 Influenza Vaccine (FLU shot) Completed , 06/25/2023, 06/11/2022, Additional history exists HPV (Gardasil) Vaccine Aged Out No lo nger eligible based on patient's age to complete this topic Hepatitis B Vaccine Aged Out No longe r eligible based on patient's age to complete this topic MENINGOCOCCAL (MENACTRA/MENVEO) Aged Out No longer eligible based on patient's age to complete this topic documented as of this encounter Medical Devices Implanted Type Area Tin Flopper Device Identifier Shelf Expiration Date Model / Serial / Lot Lens Intraoc 18.5 - [id number] - [id number] Implanted:Qty: 1 on 2022 by David Edgar MD at OR [facility] Left: Eye [employer]CH [employer] LOMB 07/27/2027 [id number] / [id number] / [id number] documented as of this encounter Visit Diagnoses Diagnosis Preoperative cardiovascular examination- Primary Pre-operative cardiovascular examination Dyslipidemia Other and unspecified hyperlipidemia CHB (complete heart block) (HCC) Atrioventricular block, complete HTN, goal below 130/80 Unspecified essential hypertension Cardiac pacemaker in situ PAF (paroxysmal atrial fibrillation) (HCC) Atrial fibrillation SSS (sick sinus syndrome) (HCC) Sinoatrial node dysfunction Spinal stenosis of lumbar region without neurogenic claudication Spinal stenosis, lumbar region, without neurogenic claudication documented in this encounter Advance Directives * No Code (Latest Code Status on File) Date Activated Date Inactivated Comments 2022 8:33 AM 2022 3:02 PM This order r eflects the patients wishes and were consensually agreed upon. Question Answer Comments Discussion of Advance Directives occurred with: Patient Does the patient have a Living Will? No Does the patient have Health Care Power of Attor xochitl? No Care Teams Manager Culture Relationship Specialty Start Date End Date Trevor Kumar MD [address] [place] [address] PCP - General Family Medicine 12/13/18 documented as of this encounter"
--- OUTSIDE RECORDS SUMMARY | 2024-07-20 15:24 | External Medical Summary | Summary of Care ---
Author Name Unknown Organization [facility] Address [address] [place] [address] Phone [phone] Care Team Providers Care Hose Inspector Name Role Phone Trevor Kumar MD Primary Care Provider + Reason for Visit * Reason Comments Outpatient Testing Encounter Details Date Type Department Care Team (Late st Contact Info) Description 07/03/2024 3:40 PM EDT Laboratory Laboratory, [facility] [address] [place] [address] RamosAye vargas [facility] [address] [place] [address] Anemia, unspecified type Allergies Active Allergy Reactions Criticality Noted Date Comments Bee Venom Edema Other 06/23/2016 Hornet Venom High 12/03/2021 Other reaction(s): ANAPHYLAXIS documented as of this encounter (statuses as of 07/03/2024) Medications Medication Sig Dispensed Refills Start Date End Date Status EPINEPHrine, anaphylaxis, (EPI-PEN) 0.3 MG/0.3ML SOAJ injection For a severe reaction: Place orange end against the outer thigh, press firmly, hold in place for 10 seconds and go to the Emergency room. 2 Device 3 07/28/2016 Active Doxazosin Mesylate 2 MG Oral Tablet (Cardura)Indication s:Coronary artery disease involving little traverse coronary artery of little traverse heart without angina pectoris TAKE 1 TABLET DAILY 90 Tablet 3 10/09/2021 Active Aspirin 81 MG Oral Tablet Delayed Release Take 1 Tablet by mouth in the morning. 100 Tablet 07/09/2022 Active Furosemide 40 MG Oral Tablet (Lasix) Take 1 Tablet by mouth daily as needed. 07/06/2022 Active Tamsulosin HCl 0.4 MG Oral Capsule [...] Active Enalapril Maleate 10 MG Oral Tablet (Vasotec)Indication s:Coronary artery disease involving little traverse coronary artery without angina pectoris Take 1 Tablet by mouth in the morning. 90 Tablet 1 02/10/2024 Active Esomeprazole Magnesium 40 MG Oral Capsule Delayed ReleaseIndications: Gastroesophageal reflux disease TAKE 1 CAPSULE DAILY 1 HOURBEFORE THE FIRST MEAL OF THE DAY 90 Capsule 1 04/06/2024 Active Potassium Citrate ER 10 MEQ (1080 MG) Oral Tablet Extended Release (Urocit-K) Take 1 Tablet by mouth in the morning and 1 Tablet before bedtime. 180 Tablet 3 05/09/2024 Active Cdkff-1-rzud Ethyl Esters 1 GM Oral Capsule (Lovaza)Indications :Dyslipidemia, goal LDL below 100,Coronary artery disease involving little traverse coronary artery without angina pectoris Take 1 Capsule by mouth in the morning and 1 Capsule before bedtime. 180 Capsule 3 05/23/2024 Active hydroCHLOROthiazide 12.5 MG Oral CapsuleIndications: Essential hypertension with goal blood pressure less than 140/90 Take one 2-3 days per week as need for edema 15 Capsule 11 05/23/2024 Active Rosuvastatin Calcium 20 MG Oral Tablet (Crestor)Indication s:Coronary artery disease involving little traverse coronary artery of little traverse heart without angina pectoris,HTN, goal below 130/80,Dyslipidemia , goal LDL below 100 Take 1 Tablet by mouth in the morning. 90 Tablet 3 05/23/2024 Active Gabapentin 300 MG Oral Capsule (Neurontin)Indicati ons:Arthralgia of right hip,Spinal stenosis of lumbar region with neurogenic claudication Take 1 Capsule by mouth at bedtime. 30 Capsule 1 05/23/2024 Active DULoxetine HCl 30 MG Oral Capsule Delayed Release Particles (Cymbalta) Take 1 Capsule by mouth in the morning and 1 Capsule before bedtime. 60 Capsule 3 06/08/2024 Active documented as of this encounter (statuses as of 07/03/2024) Active Problems Problem Noted Date Diagnosed Date [...] Overview: NO shock wave therapy. [place] [place] [place]. [phone]. 11/16 left upper pole mass is stable. [...] mass. +b/l iliac aneurysm. Ashli 10/14 [facility] WNL. 05/13 full code. 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 DDD (degenerative disc disease), lumbar 02/23/20 15 GERD (gastroesophageal reflux disease) 2 Essential hypertension with goal blood pressure less than 140/90 Dyslipidemia, goal LDL below 100 BPH without obstruction/lower urinary tract symp toms CAD (coronary artery disease) documented as of this encounter (statuses as of 07/03/2024) Resolved Problems Problem Noted Date Diagnosed Date [...] as of this encounter (statuses as of 07/03/2024) Immunizations Name Administration Dates Next Due COVID-19 mRNA, LNP-s, No Pre serve, 2-Dose Series ([employer]) 02/08/2022,07/23/2021,12/11/2020,10/28 COVID-19, MRNA-LNP, 23-24, P F, 30 MCG/0.3 mL, 12 YRS AND ABOVE, IM ([facility]) 08/06/2023 Covid-19, Mrna, Lnp-s, Pf, B ivalent, 30 Mcg, IM, 12 yrs and above (Pfizer) 06/26/2022 Pneumococcal Conjugate Vacc, 13 Valent (Prevnar) [...] Date Smoking Tobacco: Never Smokeless Tobacco: Never Comments:no passive smoke Alcohol Use Standard Drinks/Week [...] on file documented as of this encounter Plan of Treatment Upcoming Encounters Date Type Department Care Team (Late st Contact Info) Description 07/13/2024 2:00 PM EDT Office Visit Cardiology, [facility] [address] [place] [address] Kumar Schuler PA-C [address] [place] [address] 08/16/2024 2:00 PM EST Office Visit Podiatry [facility] [address] [place] [address] Prisca Ann, [place] [address] [facility] [place] [address] 08/29/2024 3:00 PM EST Office Visit Interventional Pain Center, [facility] [address] [place] [address] Santhosh Hancock DO [address] [place] [phone] 10/06/2024 12:30 PM EST Hospital Encounter [facility], Operating Room [facility] [address] [place] [address] Santhosh Hancock DO [address] [place] [phone] 10/06/2024 12:30 PM EST - 10/06/2024 12:55 PM EST Surgery OR [facility], Operating Room [facility] [address] [place] [address] Santhosh Hancock DO [address] [place] [phone] INJECTION SPINE LUMBAR OR SACRAL 10/12/2024 9:00 AM EST Office Visit Dermatology [facility] [place] [address] [place] [address] Jd Bello MD [address] [place] [address] 12/22/2024 1:15 PM EDT Office Visit Orthopaedics Spine Surgery, [facility] [address] [facility] [place] [address] Roshan Darby MD [address] [place] [id number] 01/10/2025 1:45 PM EDT Imaging Radiology [facility] [address] [facility] [place] [address] 01/12/2025 2:00 PM EDT Office Visit Family Practice [facility] [address] [place] [address] Trevor Kumar MD [address] [place] [address] 01/17/2025 1:45 PM EDT Office Visit Urology, [facility] [address] [place] [address] David Aguiar MD [address] [place] [address] Pending Results Name Type Priority Associated Diagnoses Date /Time IRON SCREEN, INCLUDING TIBC Lab Routine Anemia, unspecified type 07/03/2024 3:41 PM EDT FERRITIN Lab Routine Anemia, unspecified type 07/03/2024 3:41 PM EDT URINALYSIS WITH MICROSCOPIC EXAM Lab Routine Anemia, unspecified type 07/03/2024 3:41 PM EDT Scheduled Procedures Name Priority Associated Diagnoses Date/Ti [...] Screening 03/06/2025 03/06/2024 CKD PHOS USE SMARTSET 09481 03/20/2025 03/20/2024, 0 03/11/2021 Albumin/Creatinine Ratio 05/23/2025 024, 05/18/2023, 12/16/2021 CKD HGB USE SMARTSET 77218 07/03/202507/03, 07/03/2024, 06/28/2024, Additional history exists DTap/Tdap [...] this encounter Medical Devices Implanted Type Area Piano Teacher Device Identifier Shelf Expiration Date Model / Serial / Lot Lens Intraoc 18.5 - [id number] - [id number] Implanted:Qty: 1 on 2022 by David Edgar MD at OR [facility] Left: Eye [employer]USCH [employer] LOMB 07/27/2027 [id number] / [id number] / [id number] documented as of this encounter Procedures Procedure Name Priority Date/Time Associated Diagnosis Comments DIFFERENTIAL, AUTOMATED Routine 07/03/2024 3:41 PM EDT Anemia, unspecified type CBC Routine 07/03/2024 3:41 PM EDT Anemia, unspecified type CBC Routine 07/03/2024 3:41 PM EDT Anemia, unspecified type documented in this encounter Results * DIFFERENTIAL, AUTOMATED (07/03/2024 3:41 PM EDT) WBC 7.01 4.00 - 10.80 K/uL 07/03/2024 3:48 PM EDT [facility] Neutrophils % 69.8 40.0 - 75.0 % 07/03/2024 3:48 PM EDT [facility] Lymphocytes % 19.4 18.0 - 42.0 % 07/03/2024 3:48 PM EDT [facility] Monocytes % 9.4 1.0 - 11.0 % 07/03/2024 3:48 PM EDT [facility] Eosinophils % 1.0 0.0 - 6.0 % 07/03/2024 3:48 PM EDT [facility] Basophils % 0.4 0.0 - 2.0 % 07/03/2024 3:48 PM EDT [facility] Absolute Neutrophils 4.89 1.80 - 7.70 K/uL 07/03/2024 3:48 PM EDT [facility] Absolute Lymphocytes 1.36 1.00 - 4.80 K/ul 07/03/2024 3:48 PM EDT [facility] Absolute Monocytes 0.66 0.00 - 1.10 K/uL 07/03/2024 3:48 PM EDT [facility] Absolute Eosinophils 0.07 0.00 - 0.70 K/uL 07/03/2024 3:48 PM EDT [facility] Absolute Basophils 0.03 0.00 - 0.20 K/uL 07/03/2024 3:48 PM EDT [facility] Blood Venous blood specimen / Unknown Venipuncture / Unknown 07/03/2024 3:41 PM EDT 07/03/2024 3:41 PM EDT Trevor Kumar MD LAB BLOOD ORDERA BLES [facility] [address] [place] [address] * (ABNORMAL) CBC (07/03/2024 3:41 PM EDT) [facility] WBC 7.01 4.00 - 10.80 K/uL 07/03/2024 3:48 PM EDT [facility] RBC 3.05 4.50 - 5.25 M/uL 07/03/2024 3:48 PM EDT [facility] HGB 10.2(L) 14.0 - 16.8 g/dL 07/03/2024 3:48 PM EDT [facility] HCT 29.6(L) 40.0 - 48.4 % 07/03/2024 3:48 PM EDT [facility] MCV 97.0 82.0 - 99.5 fL 07/03/2024 3:48 PM EDT [facility] MCH 33.4 27.0 - 34.0 pg 07/03/2024 3:48 PM EDT [facility] MCHC 34.5 32.0 - 36.0 g/dL 07/03/2024 3:48 PM EDT [facility] RDW 15.2 11.5 - 15.5 % 07/03/2024 3:48 PM EDT [facility] PLT 229 140 - 400 K/uL 07/03/2024 3:48 PM EDT [facility] MPV 9.2 6.6 - 11.1 fL 07/03/2024 3:48 PM EDT [facility] Blood Venous blood specimen / Unknown Venipuncture / Unknown 07/03/2024 3:41 PM EDT 07/03/2024 3:41 PM EDT Trevor Kumar MD LAB BLOOD ORDERA BLES [facility] [address] [place] [place] [address] documented in this encounter Visit Diagnoses Diagnosis Anemia, unspecified type Spinal stenosis of lumbar region without neurogenic [...] Power of Attor xochitl? No Care Teams Hose Inspector Relationship Specialty Start Date End Date Trevor Kumar MD [address] [place] [address] PCP - General Family Medicine 12/13/18 documented as of this encounter
--- OUTSIDE RECORDS SUMMARY | 2024-07-20 15:24 | External Medical Summary | Summary of Care ---
Author Name Unknown Organization [facility] Address [address] [place] [address] Phone [phone] Care Team Providers Care Supervisor [employer] Name Role Phone Trevor Kumar MD Primary Care Provider + Reason for Visit * Reason Comments Follow Up Pt here for a F/U on lab results and wants to go over them he was seeing Hematology in past but not since 2021. Labs were done for hip replacement end of Jun. Encounter Details Date Type Department Care Team (Latest Contact Info) Description 07/03/2024 2:40 PM EDT Office Visit Family Practice 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 Monitoring @[facility] [place]. [phone]. 11/16 left upper pole mass is stable. [...] mass. +b/l iliac aneurysm. Ashli 10/14 TTE [facility] WNL. 05/13 full code. 06/07 colonoscopy [...] mRNA, LNP-s, No Pre serve, 2-Dose Series ([employer]) 02/08/2022,07/23/2021,12/11/2020,10/28 COVID-19, MRNA-LNP, 23-24, P F, 30 MCG/0.3 mL, 12 YRS AND ABOVE, IM ([facility]) 08/06/2023 Covid-19, Mrna, Lnp-s, Pf, B ivalent, 30 Mcg, IM, 12 yrs and above ([employer]) 06/26/2022 Pneumococcal Conjugate Vacc, 13 Valent (Prevnar) [...] Sign Reading Time Taken Comments Blood Pressure 118/58 07/03/2024 2:50 PM EDT Pulse 75 07/03/2024 2:50 PM EDT Temperature 37.1 C (98.7 F) 07/03/2024 2:50 PM ED T Respiratory Rate 16 07/03/2024 2:50 PM EDT Oxygen Saturation 96% 07/03/2024 2:50 PM EDT Inhaled Oxygen Concentration - - Weight 84.8 kg (187 lb) 07/03/2024 2:50 PM EDT Height - - Body Mass Index 31.12 06/09/2024 12:50 PM EDT documented in this encounter Progress Notes * Mildred Sampson CRNP - 07/03/2024 3:11 PM EDT Images from the original note were not included. Follow up Family Medicine Visit History of Present Illness Shon Dobbins is a very pleasant 88 year old male with PMH listed below presenting with f/u. 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 Dr Tejeda [facility] COLONOSCOPY 09/27/2006 repeat 2016, diverticual COLORECTAL CANCER SCREEN; NOT AT RISK 06/02/2011 diverticulosis & int. hemorrhoids CYSTOSCOPY 01/17/2012 stent placed CYSTOSCOPY 02/25/2012 stent removal FRAGMENT KIDNEY STONE BY SHOCK WAVE 02/12/2012 ESWL (Extracorporeal Shock Wave Lithotripsy) INJECT DX/THER SUBSTANCE INTERLAMINAR LUMBAR/SACRAL W IMAGE GUIDE 08/22/2018 INJECTION SPINE LUMBAR OR SACRAL performed by Mike Franco DO at OR [facility] INJECT DX/THER SUBSTANCE INTERLAMINAR LUMBAR/SACRAL W IMAGE GUIDE 10/13/2018 INJECTION SPINE LUMBAR OR SACRAL performed by Mike Franco, at OR [facility] L-/S-SPINE PARAVERTEBRAL FACET INJ,1 LEVEL 05/31/2014 L-/S-SPINE PARAVERTEBRAL FACET INJ,1 LEVEL performed by Gordon Caal, DO at OR [facility] L-/S-SPINE PARAVERTEBRAL FACET INJ,1 LEVEL 08/26/2020 L-/S-SPINE PARAVERTEBRAL FACET INJ, 1 LEVEL performed by Mike Franco, DO at OR [facility] L-/S-SPINE PARAVERTEBRAL FACET INJ,1 LEVEL 10/03/2020 L-/S-SPINE PARAVERTEBRAL FACET INJ, 1 LEVEL performed by Mike Franco, at OR [facility] L-/S-SPINE PARAVERTEBRAL FACET INJ,1 LEVEL 02/21/2021 L5-S1 Dr Nikhil PAIZ--helped a few days L-/S-SPINE PARAVERTEBRL FACET INJ,2 LEVELS 05/31/2014 L-/S-SPINE PARAVERTEBRL FACET INJ,2 LEVELS performed by Gordon Caal DO at OR [facility] L-/S-SPINE PARAVERTEBRL FACET INJ,2 LEVELS 08/26/2020 L-/S-SPINE PARAVERTEBRAL FACET INJ, 2 LEVELS performed by Mike Franco DO at OR [facility] L-/S-SPINE PARAVERTEBRL FACET INJ,2 LEVELS 10/03/2020 L-/S-SPINE PARAVERTEBRAL FACET INJ, 2 LEVELS performed by Mike Franco DO at OR [facility] NE ANESTH,PACEMAKER INSERTION 06/23/2022 Dr Alonzo @[facility]. dual lead REMOVE CATARACT, INSERT LENS PROSTH 09/27/2009 Cataract extraction RIGHT REMOVE CATARACT, INSERT LENS PROSTH Left 2022 Left EXTRACAPSULAR CATARACT REMOVAL WITH INTRAOCULAR LENS [[id number]] performed by David Edgar MD at OR [facility] TOTAL HIP REPLACEMENT & PROSTHESIS 09/27/1996 Hip Replacement LEFT UPPER GI ENDOSCOPY/EXAM Current Outpatient Medications Medication Sig Dispense Refill DULoxetine HCl 30 MG Oral Capsule Delayed Release Particles (Cymbalta) Take 1 Capsule by mouth in the morning and 1 Capsule before bedtime. 60 Capsule 3 Gabapentin 300 MG Oral Capsule (Neurontin) Take 1 Capsule by mouth at bedtime. 30 Capsule 1 hydroCHLOROthiazide 12.5 MG Oral Capsule Take one 2-3 days per week as need for edema 15 Capsule 11 Tihyx-4-vigq Ethyl Esters 1 GM Oral Capsule (Lovaza) Take 1 Capsule by mouth in the morning and 1 Capsule before bedtime. 180 Capsule 3 Rosuvastatin Calcium 20 MG Oral Tablet (Crestor) Take 1 Tablet by mouth in the morning. 90 Tablet 3 Potassium Citrate ER 10 MEQ (1080 MG) Oral Tablet Extended Release (Urocit-K) Take 1 Tablet by mouth in the morning and 1 Tablet before bedtime. 180 Tablet 3 Esomeprazole Magnesium 40 MG Oral Capsule Delayed Release TAKE 1 CAPSULE DAILY 1 HOURBEFORE THE FIRST MEAL OF THE DAY 90 Capsule 1 Enalapril Maleate 10 MG Oral Tablet (Vasotec) Take 1 Tablet by mouth in the morning. 90 Tablet 1 Finasteride 5 MG Oral Tablet (Proscar) Take 1 Tablet by mouth in the morning. 90 Tablet 3 Metoprolol Succinate ER 25 MG Oral Tablet Extended Release 24 Hour (Toprol XL) Take 0.5 Tablets by mouth daily. 45 Tablet 3 Tamsulosin HCl 0.4 MG Oral Capsule (Flomax) Take 1 Capsule by mouth in the morning. 90 Capsule 3 Furosemide 40 MG Oral Tablet (Lasix) Take 1 Tablet by mouth daily as needed. Aspirin 81 MG Oral Tablet Delayed Release Take 1 Tablet by mouth in the morning. 100 Tablet 0 Doxazosin Mesylate 2 MG Oral Tablet (Cardura) TAKE 1 TABLET DAILY 90 Tablet 3 EPINEPHrine, anaphylaxis, (EPI-PEN) 0.3 MG/0.3ML SOAJ injection For a severe reaction: Place orangeend against the outer thigh, press firmly, hold in place for 10 seconds and go to the Emergency room. 2 Device 3 No current facility-administered medications for this visit. Review of patient's allergies indicates: Allergen Reactions Hornet Venom Other reaction(s): ANAPHYLAXIS Bee Venom Edema Other Most Recent Immunizations Administered Date(s) Administered COVID-19 mRNA, LNP-s, No Preserve, 2-Dose Series ([employer]) 02/08/2022 COVID-19, MRNA-LNP, 23-24, PF, 30 MCG/0.3 mL, 12 YRS AND ABOVE, IM ([facility]) 08/06/2023 Covid-19, Mrna, Lnp-s, Pf, Bivalent, 30 Mcg, IM, 12 yrs and above ([employer]) 06/26/2022 Pneumococcal Conjugate Vacc, 13 Valent (Prevnar) 06/23/2016 Pneumococcal Polysaccharide PPV23 (Pneumovax) 02/25/2005 RSV Vac., Bivalent, Perfusion F, Pf,0.5 Ml (Abrysvo) 07/22/2023 Season Influenza, Quad, PF, Adjuvanted, 65+ Yrs, IM (FLUAD) 06/12/2020 Seasonal Influenza Vac., MDV, IM, 0.5 mL (Fluzone) 06/27/2014 Seasonal Influenza, High Dose, Trivalent, PF, IM (Fluzone HD) 06/19/2024 Seasonal Influenza, PF, 6 M & above, IM , (FluLaval or Fluzone) 07/01/2018 Seasonal Influenza, Quadrivalent Hd (Fluzone Hd) 06/25/2023 Seasonal Influenza, Quadrivalent, No Preserve, IM 06/23/2016 Seasonal Influenza, Trivalent, Adjuvanted, 65+ YRS, PF, (Fluad) 06/26/2019 TD, Preservative Free 02/19/2011 Varicella Zoster Vaccine (Adult) 05/18/2013 Zoster Vaccine Recombinant (Shingrix) 08/30/2019 Review of Systems: Physical Exam BP 118/58 | Pulse 75 | Temp 37.1 C (98.7 F) (Tympanic) | Resp 16 | Wt 84.8 kg (187 lb) | SpO2 96% | BMI 31.12 kg/m | BSA 1.97 m Physical Exam Constitutional: Appearance: Normal appearance. HENT: Head: Normocephalic. Cardiovascular: Rate and Rhythm: Normal rate and regular rhythm. Pulmonary: Effort: Pulmonary effort is normal. Breath sounds: Normal breath sounds. Musculoskeletal: Cervical back: Neck supple. Skin: General: Skin is warm. Neurological: Mental Status: He is alert and oriented to person, place, and time. Psychiatric: Mood and Affect: Mood normal. Assessment and Plan 1. Anemia, unspecified type CBC, iron labs ordered by pcp Will add ua and fecal occult blood Consider return to heme/onc as baseline hgb decreased - FECAL OCCULT BLOOD, EIA; Future - URINALYSIS WITH MICROSCOPIC EXAM; Future 2. Primary osteoarthritis of right hip Tentative surgery date on 07/20/24 Wrap-Up I have advised the patient to call our office with any worsening or new symptoms. I spent a total of 30-39 minutes (exact time 30 mins) on the date of service in preparation, delivery, and documentation of the care provided to Shon Dobbins excluding any time spent in the performance of separately billed services. Mildred Sampson, MSN, [facility] documented in this encounter Plan of Treatment Upcoming Encounters Date Type Department Care Team (Late st Contact Info) Description 07/13/2024 2:00 PM EDT Office Visit Cardiology, [facility] [address] [place] [address] Kumar Schuler PA-C [address] [place] [address] 08/16/2024 2:00 PM EST Office Visit Podiatry [facility] [address] [place] [address] Prisca Ann, DPM [address] [facility] [place] [address] 08/29/2024 3:00 PM EST Office Visit Interventional Pain Center, [facility] [address] [place] [address] Santhosh Hancock, DO [address] [place] [phone] 10/06/2024 12:30 PM EST Hospital Encounter [facility], Operating Room [facility] [address] [place] [phone] Santhosh Hancock, DO [address] [place] [phone] 10/06/2024 12:30 PM EST - 10/06/2024 12:55 PM EST Surgery OR [facility], Operating Room [facility] [address] [place] [phone] Santhosh Hancock, DO [address] [place] [phone] INJECTION SPINE LUMBAR OR SACRAL 10/12/2024 9:00 AM EST Office Visit Dermatology [facility] [place] [address] [place] [address] Jd Bello MD [address] [place] [address] 12/22/2024 1:15 PM EDT Office Visit Orthopaedics Spine Surgery, [facility] [address] [place] [address] Roshan Darby MD [address] [place] [address] 01/10/2025 1:45 PM EDT Imaging Radiology [facility] [address] [facility] [place] [address] 01/12/2025 2:00 PM EDT Office Visit Family Practice [facility] [address] [facility] [place] [address] Trevor Kumar MD [address] [facility] [place] [address] 01/17/2025 1:45 PM EDT Office Visit Urology, [facility] [address] [facility] [place] [address] David Aguiar MD [address] [place] [address] Pending Results Name Type Priority Associated Diagnoses Date /Time URINALYSIS WITH MICROSCOPIC EXAM Lab Routine Anemia, unspecified type 07/03/2024 3:41 PM EDT Scheduled Orders Name Type Priority Associated Diagnoses Orde r Schedule FECAL OCCULT BLOOD, EIA Lab Routine Anemia, unspecified type Expected: 07/03/2024 (Approximate), Expires: 07/03/2025 URINALYSIS WITH MICROSCOPIC EXAM Lab Routine Anemia, unspecified type Expected: 07/03/2024 (Approximate), Expires: 07/03/2025 Scheduled Procedures Name Priority Associated Diagnoses Date/Ti [...] Screening 03/06/2025 03/06/2024 CKD PHOS USE SMARTSET 85706 03/20/2025 03/20/2024, 0 03/11/2021 Albumin/Creatinine Ratio 05/23/2025 024, 05/18/2023, 12/16/2021 CKD HGB USE SMARTSET 19424 07/03/202507/03, 07/03/2024, 06/28/2024, Additional history exists DTap/Tdap [...] this encounter Medical Devices Implanted Type Area Opener Verifier [employer] Device Identifier Shelf Expiration Date Model / Serial / Lot Lens Intraoc 18.5 - [id number] - [id number] Implanted:Qty: 1 on 2022 by David Edgar MD at OR [facility] Left: Eye BAUSCH & LOMB 07/27/2027 [id number] / [id number] / [id number] documented as of this encounter Visit Diagnoses Diagnosis Anemia, unspecified type- Primary Primary osteoarthritis of right hip Primary localized osteoarthrosis, pelvic region and thigh Spinal stenosis of lumbar region without neurogenic [...] Power of Attor xochitl? No Care Teams Supervisor [employer] Relationship Specialty Start Date End Date Trevor Kumar MD [address] [place] [address] PCP - General Family Medicine 12/13/18 documented as of this encounter"
--- OUTSIDE RECORDS SUMMARY | 2024-07-20 15:24 | External Medical Summary ---
Author Name Unknown Address Unknown Organization K0G:[facility] [address] [place] [address] Laboratory Report Ordering Provider Test Date Status ELISABET HE 07/03/2024 15:41:47 Final Observation Date Value Abnormality Reference (Units ) Status Color of Urine by Auto 07/03/2024 15:41:47 Yellow Light Yellow, Yellow, Dark Yellow Final Clarity, Urine 07/03/2024 15:41:47 Clear Clear Final Glucose [Mass/volume] in Urine by Automated test strip 07/03/2024 15:41:47 Negative Negative (mg/dL) Final Bilirubin.total [Presence] in Urine by Automated test strip 07/03/2024 15:41:47 Negative Negative Final Ketones [Mass/volume] in Urine by Automated test strip 07/03/2024 15:41:47 Negative Negative (mg/dL) Final Specific gravity, Urine 07/03/2024 15:41:47 1.020 1.003-1.030 Final Hemoglobin [Presence] in Urine by Automated test strip 07/03/2024 15:41:47 Trace Abnormal Negative Final pH, Urine 07/03/2024 15:41:47 6.0 5.0-7.5 (Units) Final Protein [Mass/volume] in Urine by Automated test strip 07/03/2024 15:41:47 Negative Negative (mg/dL) Final Urobilinogen [Mass/volume] in Urine by Automated test strip 07/03/2024 15:41:47 4.0 Abnormal 0.2, 1.0 (mg/dL) Final Nitrite [Presence] in Urine by Automated test strip 07/03/2024 15:41:47 Negative Negative Final Leukocyte esterase [Presence] in Urine by Automated test strip 07/03/2024 15:41:47 Negative Negative Final RBC, Urine 07/03/2024 15:41:47 3-5 Abnormal 0-2 (/HPF) Final WBC, Urine 07/03/2024 15:41:47 0-2 0-2 (/HPF) Final Bacteria [#/area] in Urine sediment by Microscopy high power field 07/03/2024 15:41:47 0-25 0-25 (/HPF) Final Performing Location [facility] [facility] [address]
--- OUTSIDE RECORDS SUMMARY | 2024-07-20 15:24 | External Medical Summary | Summary of Care ---
Author Name Unknown Organization [facility] Address [address] [place] [address] Phone [phone] Care Team Providers Care Art Handler Name Role Phone Trevor Kumar MD Primary Care Provider + Reason for Visit * Reason Comments Outpatient Testing Encounter Details Date Type Department Care Team (Late st Contact Info) Description 07/04/2024 11:20 AM EDT Laboratory Laboratory [facility] [address] [place] [phone] [facility] [address] [place] [address] Anemia, unspecified type Allergies Active Allergy Reactions Criticality Noted Date Comments Bee Venom Edema Other 06/23/2016 Hornet Venom High 12/03/2021 Other reaction(s): ANAPHYLAXIS documented as of this encounter (statuses as of 07/04/2024) Medications Medication Sig Dispensed Refills Start Date End Date Status EPINEPHrine, anaphylaxis, (EPI-PEN) 0.3 MG/0.3ML SOAJ injection For a severe reaction: Place orange end against the outer thigh, press firmly, hold in place for 10 seconds and go to the Emergency room. 2 Device 3 07/28/2016 Active Doxazosin Mesylate 2 MG Oral Tablet (Cardura)Indication s:Coronary artery disease involving [place] coronary artery of [place] heart without angina pectoris TAKE 1 TABLET [...] Oral Tablet (Vasotec)Indication s:Coronary artery disease involving [place] coronary artery without angina pectoris Take 1 [...] before bedtime. 180 Tablet 3 05/09/2024 Active Wvjra-3-iaug Ethyl Esters 1 GM Oral Capsule (Lovaza)Indications :Dyslipidemia, goal LDL below 100,Coronary artery disease involving [place] coronary artery without angina pectoris Take 1 Capsule by mouth in the morning and 1 Capsule before bedtime. 180 Capsule 3 05/23/2024 Active hydroCHLOROthiazide 12.5 MG Oral CapsuleIndications: Essential hypertension with goal blood pressure less than 140/90 Take one 2-3 days per week as need for edema 15 Capsule 11 05/23/2024 Active Rosuvastatin Calcium 20 MG Oral Tablet (Crestor)Indication s:Coronary artery disease involving [place] coronary artery of [place] heart without angina pectoris,HTN, goal below 130/80,Dyslipidemia [...] as of this encounter (statuses as of 07/04/2024) Active Problems Problem Noted Date Diagnosed Date [...] Overview: NO shock wave therapy. Monitoring @[facility] [place]. [phone]. 11/16 left upper pole mass is stable. [...] mass. +b/l iliac aneurysm. Ashli 10/14 TTE [facility] WNL. 05/13 full code. 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 DDD (degenerative disc disease), lumbar 02/23/20 15 GERD (gastroesophageal reflux disease) 2 Essential hypertension with goal blood pressure less than 140/90 Dyslipidemia, goal LDL below 100 BPH without obstruction/lower urinary tract symp toms CAD (coronary artery disease) documented as of this encounter (statuses as of 07/04/2024) Resolved Problems Problem Noted Date Diagnosed Date [...] as of this encounter (statuses as of 07/04/2024) Immunizations Name Administration Dates Next Due COVID-19 mRNA, LNP-s, No Pre serve, 2-Dose Series ([employer]) 02/08/2022,07/23/2021,12/11/2020,10/28 COVID-19, MRNA-LNP, 23-24, P F, 30 MCG/0.3 mL, 12 YRS AND ABOVE, IM ([facility]) 08/06/2023 Covid-19, Mrna, Lnp-s, Pf, B ivalent, [...] 07/13/2024 2:00 PM EDT Office Visit Cardiology, [facility] [address] [place] [address] Kumar Schuler PA-C [address] [place] [address] 08/16/2024 2:00 PM EST Office Visit Podiatry [facility] [address] [place] [address] Prisca Ann, DPM [address] [facility] [place] [address] 08/29/2024 3:00 PM EST Office Visit Interventional Pain Center, [facility] [address] [place] [address] Santhosh Hancock DO [address] [place] [phone] 10/06/2024 12:30 PM EST Hospital Encounter [facility], Operating Room [facility] [address] [place] [address] Santhosh Hancock DO [address] [place] [phone] 10/06/2024 12:30 PM EST - 10/06/2024 12:55 PM EST Surgery OR [facility], Operating Room [facility] [address] [place] [phone] Santhosh Hancock DO [address] [place] [phone] INJECTION SPINE LUMBAR OR SACRAL 10/12/2024 9:00 AM EST Office Visit Dermatology [facility] [address] [place] [address] Jd Bello MD [address] [place] [address] 12/22/2024 1:15 PM EDT Office Visit Orthopaedics Spine Surgery, [facility] [address] [place] [address] Roshan Darby MD [address] [place] [id number] 01/10/2025 1:45 PM EDT Imaging Radiology [facility] [address] [place] [address] 01/12/2025 2:00 PM EDT Office Visit Family Practice [facility] [address] [facility] [place] [address] Trevor Kumar MD 132 [facility] [place] [address] 01/17/2025 1:45 PM EDT Office Visit Urology, [facility] [address] [place] [address] David Aguiar MD [address] [place] [address] Pending Results Name Type Priority Associated Diagnoses Date /Time FECAL OCCULT BLOOD, EIA Lab Routine Anemia, unspecified type 07/04/2024 11:22 AM EDT Scheduled Procedures Name Priority Associated Diagnoses [...] Screening 03/06/2025 03/06/2024 CKD PHOS USE SMARTSET 47586 03/20/2025 03/20/2024, 0 03/11/2021 Albumin/Creatinine Ratio 05/23/2025 024, 05/18/2023, 12/16/2021 CKD HGB USE SMARTSET 81455 07/03/202507/03, 07/03/2024, 06/28/2024, Additional history exists DTap/Tdap [...] this encounter Medical Devices Implanted Type Area Supervisor [employer] Device Identifier Shelf Expiration Date Model / Serial / Lot Lens Intraoc 18.5 - [id number] - [id number] Implanted:Qty: 1 on 2022 by David Edgar MD at [facility] Left: Eye [employer]CH & LOMB 07/27/2027 [id number] / [id number] / [id number] documented as of this encounter Visit Diagnoses [...] Power of Attor xochitl? No Care Teams Art Handler Relationship Specialty Start Date End Date Trevor Kumar MD [address] [place] [address] PCP - General Family Medicine 12/13/18 documented as of this encounter
--- OUTSIDE RECORDS SUMMARY | 2024-07-20 15:24 | External Medical Summary ---
Author Name Unknown Address Unknown Organization K09:[facility] [place] [place] [address] Laboratory Report Ordering Provider Test Date Status ELISABET HE 07/04/2024 11:22:43 Final Observation Date Value Abnormality Reference (Units ) Status Occult Blood (EIA) 07/04/2024 11:22:43 Negative N egative Final Performing Location [facility] [place] [address]
--- OUTSIDE RECORDS SUMMARY | 2024-07-20 15:24 | External Medical Summary | Summary of Care ---
Author Name Unknown Organization [facility] Address [address] [place] [address] Phone [phone] Care Team Providers Care Inspector Conveyor Line Name Role Phone Trevor Kumar MD Primary Care Provider + Reason for Visit * Reason Onset Date Comments Appointment 06/30/2024 Encounter Details Date Type Department Care Team (Late st Contact Info) Description 06/30/2024 Telephone Family Practice [facility] [address] [facility] [place] [address] Trevor Kumar MD [address] [facility] [place] [address] Appointment Allergies Active Allergy Reactions Criticality Noted Date Comments Bee Venom Edema Other 06/23/2016 Hornet Venom High 12/03/2021 Other reaction(s): ANAPHYLAXIS documented as of this encounter (statuses as of 06/30/2024) Medications Medication Sig Dispensed Refills Start Date End Date Status EPINEPHrine, anaphylaxis, (EPI-PEN) 0.3 MG/0.3ML SOAJ injection For a severe reaction: Place orange end against the outer thigh, press firmly, hold in place for 10 seconds and go to the Emergency room. 2 Device 3 07/28/2016 Active Doxazosin Mesylate 2 MG Oral Tablet (Cardura)Indication s:Coronary artery disease involving sleetm[place] coronary artery of sleetm[place] heart without angina pectoris TAKE 1 TABLET [...] Oral Tablet (Vasotec)Indication s:Coronary artery disease involving sleetm[place] coronary artery without angina pectoris Take 1 [...] before bedtime. 180 Tablet 3 05/09/2024 Active Uamqt-7-wezm Ethyl Esters 1 GM Oral Capsule (Lovaza)Indications :Dyslipidemia, goal LDL below 100,Coronary artery disease involving sleetm[place] coronary artery without angina pectoris Take 1 Capsule by mouth in the morning and 1 Capsule before bedtime. 180 Capsule 3 05/23/2024 Active hydroCHLOROthiazide 12.5 MG Oral CapsuleIndications: Essential hypertension with goal blood pressure less than 140/90 Take one 2-3 days per week as need for edema 15 Capsule 11 05/23/2024 Active Rosuvastatin Calcium 20 MG Oral Tablet (Crestor)Indication s:Coronary artery disease involving sleetm[place] coronary artery of sleetm[place] heart without angina pectoris,HTN, goal below 130/80,Dyslipidemia [...] as of this encounter (statuses as of 06/30/2024) Active Problems Problem Noted Date Diagnosed Date [...] Overview: NO shock wave therapy. [place] [place] [place]. [phone]. 11/16 left upper pole mass is stable. 11/[address] Judge. Also saw [facility] u[facility] Dr Viet Geronimo/[facility]y [facility]--recommend monitro Q6mo MRI there.stable 1.9cm upper left kidney mass. Iliac artery aneurysm, bilateral 11/02/2017 Overview: 11/14 inc from 2011. Jb 1-2y Blood in urine 10/23/2017 Overview: Kidney [...] 11/14 +left renal mass. +b/l iliac aneurysm. Jb 10/14 TTE [facility] WNL. 05/13 full code. 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 DDD (degenerative disc disease), lumbar 02/23/20 15 GERD (gastroesophageal reflux disease) 2 Essential hypertension with goal blood pressure less than 140/90 Dyslipidemia, goal LDL below 100 BPH without obstruction/lower urinary tract symp toms CAD (coronary artery disease) documented as of this encounter (statuses as of 06/30/2024) Resolved Problems Problem Noted Date Diagnosed Date [...] as of this encounter (statuses as of 06/30/2024) Immunizations Name Administration Dates Next Due COVID-19 mRNA, LNP-s, No Pre serve, 2-Dose Series (Akampus) 02/08/2022,07/23/2021,12/11/2020,10/28 COVID-19, MRNA-LNP, 23-24, P F, 30 MCG/0.3 mL, 12 YRS AND ABOVE, IM ([facility]) 08/06/2023 Covid-19, Mrna, Lnp-s, Pf, [...] on file documented as of this encounter Miscellaneous Notes * Telephone Encounter - Kaela Agosto OSA - 06/30/2024 4:54 PM EDT Patient has been notified of the message. Patient advised he'll go tomorrow to get the lab recheck done. F/u appt with lars oliveros on 07/12 @7:40am * Telephone Encounter - Gabbie Cordero OSA - 06/30/2024 3:50 PM EDT Spoke w/ she was unfair why he needed this she will talk to him and call back to schedule f/u with lars * Telephone Encounter - Trevor Kumar MD - 06/30/2024 2:27 PM EDT Call pt. Pre-op labs at [facility] show anemia is a little worse--hgb is 9.9, down from 11.6 last year. Hx CKD. I ordered new iron labs--please stop by [facility] any time to jb. Sched f/u S Adrián to review together. documented in this encounter Plan of Treatment Upcoming Encounters Date Type Department Care Team (Late st Contact Info) Description 07/12/2024 7:40 AM EDT Office Visit Family Practice [facility] [address] [place] [address] Lars Oliveros CRNP [address] [place] [address] 07/13/2024 2:00 PM EDT Office Visit Cardiology, [facility] [address] [place] [address] Kumar Schuler PA-C [address] [place] [address] 08/16/2024 2:00 PM EST Office Visit Podiatry [facility] [address] [place] [address] Prisca Ann, DPM [address] [facility] [place] [address] 08/29/2024 3:00 PM EST Office Visit Interventional Pain Center, [facility] [address] [place] [address] Santhosh Hancock DO [address] [place] [phone] 10/06/2024 12:30 PM EST Hospital Encounter [facility], Operating Room [facility] [address] [place] [phone] Santhosh Hancock, DO [address] [place] [phone] 10/06/2024 12:30 PM EST - 10/06/2024 12:55 PM EST Surgery OR [facility], Operating Room [facility] [address] [place] [phone] Santhosh Hancock DO [address] [place] [phone] INJECTION SPINE LUMBAR OR SACRAL 10/12/2024 9:00 AM EST Office Visit Dermatology [facility] [place] [address] [place] [address] Jd Bello MD [address] [place] [address] 12/22/2024 1:15 PM EDT Office Visit Orthopaedics Spine Surgery, [facility] [address] [place] [address] Roshan Darby MD [address] [place] [address] 01/10/2025 1:45 PM EDT Imaging Radiology [facility] [address] [facility] [place] [address] 01/17/2025 1:45 PM EDT Office Visit Urology, [facility] [address] [facility] [place] [address] David Aguiar MD [address] [place] [address] Scheduled Orders Name Type Priority Associated Diagnoses Orde r Schedule CBC WITH WBC DIFFERENTIAL Lab Routine Anemia, unspecified type Expected: 07/03/2024, Expires: 06/30/2025 IRON SCREEN, INCLUDING TIBC Lab Routine Anemia, unspecified type Expected: 07/03/2024, Expires: 06/30/2025 FERRITIN Lab Routine Anemia, unspecified type Expected: 07/03/2024, Expires: 06/30/2025 Scheduled Procedures Name Priority Associated Diagnoses Date/Ti [...] Screening 03/06/2025 03/06/2024 CKD PHOS USE SMARTSET 50679 03/20/2025 03/20/2024, 0 03/11/2021 Albumin/Creatinine Ratio 05/23/202505/23/2 024, 05/18/2023, 12/16/2021 CKD HGB USE SMARTSET 78085 06/28/202506/28, 02/02/2023, 02/02/2023, Additional history exists DTap/Tdap Vaccines (2 - [...] this encounter Medical Devices Implanted Type Area Bobbin Coil Winder Device Identifier Shelf Expiration Date Model / Serial / Lot Lens Intraoc 18.5 - [id number] - [id number] Implanted:Qty: 1 on 2022 by David Edgar MD at OR [facility] Left: Eye BAUSCH & LOMB 07/27/2027 [id number] / [id number] / [id number] documented as of this encounter Visit Diagnoses Diagnosis Anemia, unspecified type- Primary Spinal stenosis of lumbar region without neurogenic [...] Power of Attor xochitl? No Care Teams Inspector Conveyor Line Relationship Specialty Start Date End Date Trevor Kumar MD [address] [place] [address] PCP - General Family Medicine 12/13/18 documented as of this encounter
--- OUTSIDE RECORDS SUMMARY | 2024-07-20 15:24 | External Medical Summary | Summary of Care ---
Author Name Unknown Organization [facility] Address [address] [place] [address] Phone [phone] Care Team Providers Care Pile Driving Setter Name Role Phone Trevor Kumar MD Primary Care Provider + Reason for Visit * Reason Onset Date Comments Appointment 06/30/2024 Encounter Details Date Type Department Care Team (Late st Contact Info) Description 06/30/2024 Telephone Family Practice [facility] [address] [facility] [place] [phone] Trevor Kumar MD [address] [facility] [place] [address] Appointment Allergies Active Allergy Reactions Criticality Noted [...] Oral Tablet (Cardura)Indication s:Coronary artery disease involving [place] coronary artery of [place] heart without angina pectoris TAKE 1 TABLET [...] Oral Tablet (Vasotec)Indication s:Coronary artery disease involving [place] coronary artery without angina pectoris Take 1 [...] before bedtime. 180 Tablet 3 05/09/2024 Active Pkvkm-0-kgsn Ethyl Esters 1 GM Oral Capsule (Lovaza)Indications :Dyslipidemia, goal LDL below 100,Coronary artery disease involving [place] coronary artery without angina pectoris Take 1 Capsule by mouth in the morning and 1 Capsule before bedtime. 180 Capsule 3 05/23/2024 Active hydroCHLOROthiazide 12.5 MG Oral CapsuleIndications: Essential hypertension with goal blood pressure less than 140/90 Take one 2-3 days per week as need for edema 15 Capsule 11 05/23/2024 Active Rosuvastatin Calcium 20 MG Oral Tablet (Crestor)Indication s:Coronary artery disease involving [place] coronary artery of [place] heart without angina pectoris,HTN, goal below 130/80,Dyslipidemia [...] Overview: NO shock wave therapy. [place] [place] [place]. [phone]. 11/16 left upper pole mass is stable. [...] mass. +b/l iliac aneurysm. Jb 10/14 TTE [facility] WNL. 05/13 full code. 06/07 colonoscopy [...] mRNA, LNP-s, No Pre serve, 2-Dose Series ([employer] 02/08/2022,07/23/2021,12/11/2020,10/28 COVID-19, MRNA-LNP, 23-24, P F, 30 MCG/0.3 mL, 12 YRS AND ABOVE, IM ([facility]) 08/06/2023 Covid-19, Mrna, Lnp-s, Pf, B [...] encounter Miscellaneous Notes * Telephone Encounter - Gabbie Cordero OSA - 06/30/2024 3:50 PM EDT Spoke w/ she was unfair why he needed this she will talk to him and call back to schedule f/u with lars * Telephone Encounter - Trevor Kumar MD - 06/30/2024 2:27 PM EDT Call pt. Pre-op labs at [facility] show anemia is a little worse--hgb is 9.9, down from 11.6 last year. Hx CKD. I ordered new iron labs--please stop by [facility] any time to jb. Sched f/u S Sampson to review together. documented in this encounter Plan of Treatment Upcoming Encounters Date Type Department Care Team (Late st Contact Info) Description 07/13/2024 2:00 PM EDT Office Visit Cardiology, [facility] [address] [place] [address] Kumar Schuler, PASamirC [address] [place] [address] 08/16/2024 2:00 PM EST Office Visit Podiatry [facility] [address] [place] [address] Prisca Ann, DPKel [address] [facility] [place] [address] 08/29/2024 3:00 PM EST Office Visit Interventional Pain Center, [facility] [address] [place] [address] Santhosh Hancock DO [address] [place] [phone] 10/06/2024 12:30 PM EST Hospital Encounter [facility], Operating Room [facility] [address] [place] [address] Santhosh Hancock, DO [address] [place] [address] 10/06/2024 12:30 PM EST - 10/06/2024 12:55 PM EST Surgery OR [facility], Operating Room [facility] [address] [place] [address] Santhosh Hancock, DO [address] [place] [phone] INJECTION SPINE LUMBAR OR [facility]CRAL 10/12/2024 9:00 AM EST Office Visit [facility] [address] [facility] [place] [address] Jd Bello MD [address] [facility] [place] [address] 12/22/2024 1:15 PM EDT Office Visit Orthopaedics Spine Surgery, [facility] [address] [place] [address] Roshan Darby MD [address] [place] [address] 01/10/2025 1:45 PM EDT Imaging Radiology [facility] [address] [place] [address] 01/17/2025 1:45 PM EDT Office Visit Urology, [facility] [address] [place] [address] David Aguiar MD [address] [place] [phone] Scheduled Orders Name Type Priority Associated Diagnoses [...] Screening 03/06/2025 03/06/2024 CKD PHOS USE SMARTSET 66029 03/20/2025 03/20/2024, 0 03/11/2021 Albumin/Creatinine Ratio 05/23/2025 024, 05/18/2023, 12/16/2021 CKD HGB USE SMARTSET 27934 06/28/202506/28, 02/02/2023, 02/02/2023, Additional history exists DTap/Tdap [...] this encounter Medical Devices Implanted Type Area News Clipping Cutter Device Identifier Shelf Expiration Date Model / Serial / Lot Lens Intraoc 18.5 - [id number] - [id number] Implanted:Qty: 1 on 2022 by David Edgar MD at OR [facility] Left: Eye BAUSCH & LOMB 07/27/2027 [id number] / [id number] / [id number] documented as of this encounter Visit Diagnoses [...] Power of Attor xochitl? No Care Teams Pile Driving Setter Relationship Specialty Start Date End Date Trevor Kumar MD [address] [facility] [place] [address] PCP - General Family Medicine 12/13/18 documented as of this encounter
--- OUTSIDE RECORDS SUMMARY | 2024-07-20 15:24 | External Medical Summary ---
Author Name Unknown Address Unknown Organization K[facility] [address] [place] [address] Laboratory Report Ordering Provider Test Date Status NARENDRA MARSHALL 07/03/2024 15:41:47 Final Observation Date Value Abnormality Reference (Units ) Status SYNC LEUKOCYTES IN BLOOD BY AUTOMATED COUNT 07/03/2024 15:41:47 7.01 4.00-10.80 (K/uL) Final Segs 07/03/2024 15:41:47 69.8 40.0-75.0 (%) Final Lymphs % 07/03/2024 15:41:47 19.4 18.0-42.0 (%) Final Monos 07/03/2024 15:41:47 9.4 1.0-11.0 (%) Final Eosinophils 07/03/2024 15:41:47 1.0 0.0-6.0 (%) Final Basos 07/03/2024 15:41:47 0.4 0.0-2.0 (%) Final Absolute Segs 07/03/2024 15:41:47 4.89 1.80-7.70 (K/uL) Final Lymphs, absolute 07/03/2024 15:41:47 1.36 1.00-4.80 (K/ul) Final Monos, Abs 07/03/2024 15:41:47 0.66 0.00-1.10 (K/uL) Final Eos, Abs 07/03/2024 15:41:47 0.07 0.00-0.70 (K/uL) Final Basos, Abs 07/03/2024 15:41:47 0.03 0.00-0.20 (K/uL) Final Performing Location LABORATORY [facility] [address] - [address] [place] [address]
--- OUTSIDE RECORDS SUMMARY | 2024-07-20 15:24 | External Medical Summary ---
Author Name Unknown Address Unknown Organization K01:LABORATORY [facility] [place] - [address] [place] [address] Laboratory Report Ordering Provider Test Date Status ROLANDOJESSICAPRAKASH 07/03/2024 15:41:47 Final Observation Date Value Abnormality Reference (Units ) Status Iron 07/03/2024 15:41:47 74 45-176 (ug /dL) Final Iron-binding capacity 07/03/2024 15:41:47 361 250-425 (ug/dL) Final Transferrin Sat % 07/03/2024 15:41:47 20 15 -55 (%) Final Performing Location LABORATORY C - [address] [place] [address]
--- OUTSIDE RECORDS SUMMARY | 2024-07-20 15:24 | External Medical Summary | Summary of Care ---
Author Name Unknown Organization [facility] Address [address] [place] [address] Phone [phone] Care Team Providers Care Fisheries Inspector Name Role Phone Trevor Kumar MD Primary Care Provider + Encounter Details Date Type Department Care Team (Late st Contact Info) Description 07/03/2024 Orders Only PATIENT PORTAL DO NOT DELETE THIS DEPT USED BY [place] [facility] [id number] Allergies Active Allergy Reactions Criticality Noted Date [...] Oral Tablet (Cardura)Indication s:Coronary artery disease involving [place]qu[place] coronary artery of [place] heart without angina pectoris TAKE 1 TABLET [...] Oral Tablet (Vasotec)Indication s:Coronary artery disease involving [place]qu[place] coronary artery without angina pectoris Take 1 [...] before bedtime. 180 Tablet 3 05/09/2024 Active Ndypx-1-hpbd Ethyl Esters 1 GM Oral Capsule (Lovaza)Indications :Dyslipidemia, goal LDL below 100,Coronary artery disease involving coqu[place] coronary artery without angina pectoris Take 1 Capsule by mouth in the morning and 1 Capsule before bedtime. 180 Capsule 3 05/23/2024 Active hydroCHLOROthiazide 12.5 MG Oral CapsuleIndications: Essential hypertension with goal blood pressure less than 140/90 Take one 2-3 days per week as need for edema 15 Capsule 11 05/23/2024 Active Rosuvastatin Calcium 20 MG Oral Tablet (Crestor)Indication s:Coronary artery disease involving [place]qu[place] coronary artery of [place] heart without angina pectoris,HTN, goal below 130/80,Dyslipidemia [...] [facility] [place]. [phone]. 11/16 left upper pole mass is stable. [...] mass. +b/l iliac aneurysm. Ashli 10/14 [facility]TE [facility] WNL. 05/13 full code. 06/07 [...] mRNA, LNP-s, No Pre serve, 2-Dose Series (Cardio control) 02/08/2022,07/23/2021,12/11/2020,10/28 COVID-19, MRNA-LNP, 23-24, P F, 30 MCG/0.3 mL, 12 YRS AND ABOVE, IM (PFIZER-Comirnaty) 08/06/2023 Covid-19, Mrna, Lnp-s, Pf, B ivalent, [...] Team (Late st Contact Info) Description 07/03/2024 2:40 PM EDT Office Visit Family [employer] [address] [place] [address] Mildred Aponte CRNP [address] [place], [place] [address] 07/13/2024 2:00 PM EDT Office Visit Cardiology, [facility] [address] [place], [place] [address] Kumar Schuler PA-C [address] [place], [place] [address] 08/16/2024 2:00 PM EST Office Visit Podiatry [facility] [address] [place] [address] Prisca Ann, DPM [address] [place] [address] [place] [address] 08/29/2024 3:00 PM EST Office Visit Interventional Pain Center, [facility] [address] [place] [address] Santhosh Hancock, DO [address] [place] [phone] 10/06/2024 12:30 PM EST Hospital Encounter [facility], Operating Room [facility] [address] [place] [phone] Santhosh Hancock, DO [address] [place] [address] 10/06/2024 12:30 PM EST - 10/06/2024 12:55 PM EST Surgery OR [facility], Operating Room [facility] [address] [place] [phone] Santhosh Hancock, DO [address] [place] [phone] INJECTION SPINE LUMBAR OR [facility] 10/12/2024 9:00 AM EST Office Visit Dermatology [place] [address] [place], [place] [address] Jd Bello MD [address] [place] [address] 12/22/2024 1:15 PM EDT Office Visit Orthopaedics Spine Surgery, [facility] [address] [facility] [place] [address] Roshan Darby MD [address] [place] [address] 01/10/2025 1:45 PM EDT Imaging Radiology [facility] [address] [facility] [place] [address] 01/17/2025 1:45 PM EDT Office Visit Urology, [facility] [address] [place] [address] David Aguiar MD [address] [facility] [place] [address] Scheduled Procedures Name Priority Associated Diagnoses Date/Ti [...] Screening 03/06/2025 03/06/2024 CKD PHOS USE SMARTSET 80860 03/20/2025 03/20/2024, 0 03/11/2021 Albumin/Creatinine Ratio 05/23/20252 024, 05/18/2023, 12/16/2021 CKD HGB USE SMARTSET 85471 06/28/202506/28, 02/02/2023, 02/02/2023, Additional history exists DTap/Tdap [...] this encounter Medical Devices Implanted Type Area Postage Machine Operator Device Identifier Shelf Expiration Date Model / Serial / Lot Lens Intraoc 18.5 - [id number] - [id number] Implanted:Qty: 1 on 2022 by David Edgar MD at [facility] Left: Eye BAUSCH & LOMB 07/27/2027 [id number] / [id number] / [id number] documented as of this encounter Advance Directives * No Code [...] Power of Attor xochitl? No Care Teams Fisheries Inspector Relationship Specialty Start Date End Date Trevor Kumar MD [address] [place] [address] PCP - General Family Medicine 12/13/18 documented as of this encounter
--- OUTSIDE RECORDS SUMMARY | 2024-07-20 15:24 | External Medical Summary ---
Author Name Unknown Address Unknown Organization K01:LABORATORY C - [address] [place] [address] Laboratory Report Ordering Provider Test Date Status NARENDRA MARSHALL 07/03/2024 15:41:47 Final Observation Date Value Abnormality Reference (Units ) Status Ferritin 07/03/2024 15:41:47 99 30-400 (ng /mL) Final Performing Location [facility] [address] [facility] [address]
--- OUTSIDE RECORDS SUMMARY | 2024-07-20 15:25 | External Medical Summary | Summary of Care ---
Author Name Unknown Organization [facility] Address [address] [place] [address] Phone [phone] Care Team Providers Care Reed Worker Name Role Phone Trevor Kumar MD Primary Care Provider + Encounter Details Date Type Department Care Team (Late st Contact Info) Description 06/30/2024 Orders Only Family Practice [facility] [address] [place] [id number] Trevor Kumar MD [address] [place] [id number] Allergies Active Allergy Reactions Criticality Noted Date [...] Oral Tablet (Cardura)Indication s:Coronary artery disease involving pauma coronary artery of pauma heart without angina pectoris TAKE 1 TABLET [...] Oral Tablet (Vasotec)Indication s:Coronary artery disease involving pauma coronary artery without angina pectoris Take 1 [...] before bedtime. 180 Tablet 3 05/09/2024 Active Qexdp-0-uweo Ethyl Esters 1 GM Oral Capsule (Lovaza)Indications :Dyslipidemia, goal LDL below 100,Coronary artery disease involving pauma coronary artery without angina pectoris Take 1 Capsule by mouth in the morning and 1 Capsule before bedtime. 180 Capsule 3 05/23/2024 Active hydroCHLOROthiazide 12.5 MG Oral CapsuleIndications: Essential hypertension with goal blood pressure less than 140/90 Take one 2-3 days per week as need for edema 15 Capsule 11 05/23/2024 Active Rosuvastatin Calcium 20 MG Oral Tablet (Crestor)Indication s:Coronary artery disease involving pauma coronary artery of pauma heart without angina pectoris,HTN, goal below 130/80,Dyslipidemia [...] Overview: NO shock wave therapy. Monitoring @[facility]. [phone]. 11/16 left upper pole mass is stable. [...] +b/l iliac aneurysm. Ashli 10/14 [facility] WNL. 05/13 full code. 06/07 [...] mRNA, LNP-s, No Pre serve, 2-Dose Series ([employer]) 02/08/2022,07/23/2021,12/11/2020,10/28 COVID-19, MRNA-LNP, 23-24, P F, 30 MCG/0.3 mL, 12 YRS AND ABOVE, IM ([employer] 08/06/2023 Covid-19, Mrna, Lnp-s, Pf, B ivalent, [...] 05/09/2024 Does the household have a re lar source of income? (Household - for ages [...] 07/13/2024 2:00 PM EDT Office Visit Cardiology, [facility] [address] [place] [address] Kumar Schuler PA-C [address] [place] [address] 08/16/2024 2:00 PM EST Office Visit Podiatry [facility] [address] [place] [address] Prisca Ann, DPM [address] [facility] [place] [address] 08/29/2024 3:00 PM EST Office Visit Interventional Pain Center, [facility] [address] [place] [address] Santhosh Hancock, DO [address] [place] [phone] 10/06/2024 12:30 PM EST Hospital Encounter [facility], Operating Room [facility] [address] [place] [phone] Santhosh Hancock DO [address] [place] [phone] 10/06/2024 12:30 PM EST - 10/06/2024 12:55 PM EST Surgery [facility], Operating Room [facility] [address] [place] [phone] Santhosh Hancock, DO [address] [place] [phone] INJECTION SPINE LUMBAR OR SACRAL 10/12/2024 9:00 AM EST Office Visit [facility] [address] [place] [address] Jd Bello MD [address] [place] [address] 12/22/2024 1:15 PM EDT Office Visit Orthopaedics Spine Surgery, [facility] [address] [facility] [place] [address] Roshan Darby MD [address] [place] [phone] 01/10/2025 1:45 PM EDT Imaging Rad[facility] [place] [address] 01/17/2025 1:45 PM EDT Office Visit [facility], [facility] [address] [facility] [place] [address] David Aguiar MD [address] [place] [phone] Scheduled Procedures Name Priority Associated Diagnoses Date/Ti me INJECTION SPINE LUMBAR OR SACRAL Spinal stenosis of lumbar region without neurogenic claudication 10/06/2024 12:30 PM EST ROBOTIC ARTHROPLASTY TOTAL HIP Primary osteoarthritis of right hip Health Maintenance Due Date Last Done Comments CKD HGB USE SMARTSET 27010 02/03/202406/28, 02/02/2023, 02/02/2023, Additional history exists COVID-19 Vaccine ( season) 2024 08/06/2023, 06/26/2022, 02/08/2022, Additional history exists Adult Wellness Visit 03/06/2025 03/06/2024, 06/06/20 21 Depression Screening 03/06/2025 03/06/2024 CKD PHOS USE SMARTSET 01064 03/20/2025 03/20/2024, 0 03/11/2021 Albumin/Creatinine Ratio 05/23/2025 024, 05/18/2023, 12/16/2021 DTap/Tdap Vaccines (2 - Td or Tdap) [...] this encounter Medical Devices Implanted Type Area Roller Gold Leaf Device Identifier Shelf Expiration Date Model / Serial / Lot Lens Intraoc 18.5 - [id number] - [id number] Implanted:Qty: 1 on 2022 by David Edgar MD at OR [facility] Left: Eye [employer]OM[employer] 07/27/2027 [id number] / [id number] / [id number] documented as of this encounter Procedures Procedure Name Priority Date/Time Associated Diagnosis Comments CHEMISTRY-OUTSIDE Routine 06/28/2024 documented in this encounter Results * (ABNORMAL) CHEMISTRY-OUTSIDE (06/28/2024) Not all results display below - see scan for full detail SCAN INCLUDES: PT INR, PTT, BMP, CRP, CBCD OUTSIDE LAB (SEE SCANNED REPORT) CREATININE 0.90 0.6 - 1.4 MG/DL OUTSIDE LAB (SEE SCANNED REPORT) EGFR 76.5 ML/MIN OUTSIDE LA B (SEE SCANNED REPORT) POTASSIUM 4.3 3.5 - 5.1 MMOL/L OUTSIDE LAB (SEE SCANNED REPORT) GLUCOSE 103(A) 70 - 99 MG/DL OUTSIDE LAB (SEE SCANNED REPORT) HOURS FASTING OUTSID E LAB (SEE SCANNED REPORT) TRIGLYCERIDES-OUT SIDE LAB OUTSIDE LAB (SEE SCANNED REPORT) CHOLESTEROL-OUTSI DE LAB OUTSIDE LAB (SEE SCANNED REPORT) HDL-OUTSIDE LAB OUTS MURRAY LAB (SEE SCANNED REPORT) CHOL/HDL RATIO-OUTSIDE LAB OUTSIDE LA B (SEE SCANNED REPORT) LDL (CALCULATED)-OUTS MURRAY LAB OUTSIDE LAB (SEE SCANNED REPORT) LDL (DIRECT MEASURE)-OUTSIDE LAB OUTSIDE LAB (SEE SCANNED REPORT) HEMOGLOBIN, [id number] LAB OUTSIDE LAB (SEE SCANNED REPORT) PHOSPHORUS-OUTSID E LAB OUTSIDE LAB (SEE SCANNED REPORT) PTH-OUTSIDE LAB OUTS MURRAY LAB (SEE SCANNED REPORT) MICROALBUMIN RATIO-OUTSIDE LAB OUTSIDE LA B (SEE SCANNED REPORT) PROTEIN, UA-OUTSIDE LAB OUTSIDE LAB (SEE SCANNED REPORT) HGB 9.9(A) 14.0 - 18.0 G/DL OUTSIDE LAB (SEE SCANNED REPORT) 06/28/2024 Abiodun Diana MD LABORATORY OUTSIDE LAB (SEE SCANNED REPORT) documented in this encounter Advance Directives * [...] Power of Attor xochitl? No Care Teams Reed Worker Relationship Specialty Start Date End Date Trevor Kumar MD [address] [place] [id number] PCP - General Family Medicine 12/13/18 documented as of this encounter
--- NOTE | 2024-07-20 15:41 | XRay Report ---
SINGLE VIEW PELVIS; SINGLE VIEW RIGHT HIP CLINICAL HISTORY: Postoperative examination. FINDINGS: An AP portable view of the hips and pelvis with a crosstable lateral portable view of the r ight hip are compared to study dated 06/09/2024. A bipolar right hip arthroplasty is in near-anatomic alignment. At least 2 cortical lag screws transfix the acetabular cup. No acute fracture is identifie d. There are expected postoperative changes overlying the right hip including skin clips, subcutaneou s gas, and soft tissue swelling. A left hip arthroplasty is in near anatomic alignment. There is adva nced atherosclerotic calcification of the femoral arteries. Phleboliths are seen in the pelvis. IMPRESSION: Expected postoperative findings status post right hip arthroplasty. No acute fracture is seen. ACT 112: Negative or not required by law. Electronically signed by: Rivas Davidson M.D. 07/20/2024 3:40 PM
[2024-07-20] MEDS: traMADol HCL 50 MG TABLET PO PRN (16:47)
[2024-07-20] MEDS: ASCORBIC ACID 500 MG TAB PO SCH (16:51)
[2024-07-20] MEDS: TRANEXAMIC ACID / 0.7% NACL 1,000 MG/100 ML BAG IV SCH (16:52)
[2024-07-20] MEDS ORDERED: SENNA 8.6 MG TAB PO SCH (21:00)
[2024-07-20] MEDS: FINASTERIDE 5 MG TAB PO SCH (21:24)
[2024-07-20] MEDS: DOCUSATE SODIUM 100 MG CAP PO SCH (21:24)
[2024-07-20] MEDS: TAMSULOSIN HCL 0.4 MG CAP PO SCH (21:24)
[2024-07-20] MEDS: ASPIRIN 81 MG ECTAB PO SCH (21:24)
[2024-07-20] MEDS: ENALAPRIL MALEATE 10 MG TAB PO SCH (21:24)
[2024-07-20] MEDS: DULoxetine HCL 30 MG CAP PO SCH (21:24)
[2024-07-20] MEDS: SENNA 8.6 MG TAB PO SCH (21:25)
[2024-07-20] MEDS: GABAPENTIN 300 MG CAP PO SCH (21:25)
[2024-07-20] MEDS: POTASSIUM CITRATE 10 MEQ TAB PO SCH (21:27)
[2024-07-20] MEDS: OMEGA-3 (PURIFIED FISH OIL) 1 GM CAP PO SCH (21:27)
--- NOTE | 2024-07-21 07:13 | Orthopedic Progress Note ---
Date of Service July 21, 2024 Assessment & Plan (1) Status post right hip replacement: Plan: 88-year-old gentleman with multiple medical comorbidities postop day 1 from right hip replacement doing pretty well. Pains controlled. Hips located. He is neurologically intact. Plan: 1. DVT prophylaxis including thigh-high teds, SCDs, aspirin twice a day. 2. PT/OT. He can fully weight-bear as tolerated. Right total hip protocol. 3. Pain control. Doing okay with current pain regimen. 4. Disposition. Plan is to discharge to home with some home health if he does okay in therapy today. (2) Spinal stenosis, lumbar region, with neurogenic claudication: (3) CAD (coronary artery disease): (4) Hx of gastroesophageal reflux (GERD): (5) Lower extremity edema: (6) Hyperlipidemia: (7) Hypertension: Admission and Anticipated Discharge Date Admission Date: July 20, 2024 Subjective 88-year-old gentleman postop day 1 from right hip replacement. He is doing pretty well this morning. Pains controlled. Had a reasonable night. No chest pain or shortness of breath. Not feeling dizzy or lightheaded. Physical Exam Physical Exam: Physical nation was a pleasant elderly male. He is lying bed looks pretty comfortable this morning. Is awake alert and oriented. His dressings clean dry and intact. Leg lengths are equal. Thigh is soft and supple. He can dorsiflex and plantarflex his foot appropriately Respiratory: normal respiratory effort, lungs clear to auscultation Cardiovascular: RRR, no murmur, no edema Gastrointestinal (Abdomen): normal bowel sounds, soft, nontender, no hepatosplenomegaly Results & Data Vital Signs (Past 12 Hours) Vital Signs Temp Pulse Resp BP Pulse Ox O2 Del Method 07/21/24 04:30 36.3 C L 75 18 122/55 L 99 Room Air 07/20/24 23:29 37 C 60 18 107/60 96 Room Air 07/20/24 20:55 36.9 C 60 18 124/67 98 Room Air Laboratory Results Labs are pending.
[2024-07-21 07:35] LABS: Basophils # (auto) 0.02 K/uL (0.00-0.20); Basophils % (auto) 0.2 %; Eosinophils # (auto) 0.06 K/uL (0.00-0.50); Eosinophils % (auto) 0.7 %; Hematocrit (blood only) 23.2 % (42.0-52.0); Immature Granulocytes # (auto) 0.03 K/uL (0.01-0.20); Immature Granulocytes % (auto) 0.3 %; Lymphocytes # (auto) 0.83 K/uL (1.20-3.40); Lymphocytes % (auto) 9.6 %; Mean Corpuscular Hemoglobin 32.9 pg (25.0-34.0); Mean Corpuscular Hgb Conc 34.5 g/dL (32.0-36.0); Mean Corpuscular Volume 95.5 fL (80.0-100.0); Mean Platelet Volume 9.7 fL (9.4-12.4); Monocytes % (auto) 10.4 %; Neutrophils # (auto) 6.79 K/uL (1.40-6.50); Neutrophils % (auto) 78.8 %; Platelet Count 168 K/uL (130-400); RDW Coefficient of Variation 15.2 % (11.5-14.5); RDW Standard Deviation 53.2 fL (36.4-46.3); Red Blood Count 2.43 M/uL (4.70-6.10); White Blood Count 8.63 K/ul (4.8-10.8)
[2024-07-21 07:44] LABS: BUN Creatinine Ratio 27.9 (10-20); Calcium 8.6 mg/dl (8.6-10.3); Creatinine Clr Calc Pharmacy 38.2 ml/min; Potassium 4.6 mmol/L (3.5-5.1)
[2024-07-21] MEDS: dexAMETHasone 10 MG in SYRINGE 0 ML IV SCH (07:55)
[2024-07-21] MEDS: ROSUVASTATIN CALCIUM 20 MG TAB PO SCH (07:56)
[2024-07-21] MEDS: METOPROLOL SUCC 25MG EXT REL TAB PO SCH (07:58)
[2024-07-21] MEDS: MULTIVITAMIN TAB PO SCH (07:59)
[2024-07-21 08:03] VITALS: RESP 16
[2024-07-21 11:10] VITALS: PULSE 64; TEMP 98.4; O2SAT 98
[2024-07-21 13:26] VITALS: BP 103/62
--- NOTE | 2024-07-25 15:14 | Discharge Summary ---
Date of Service July 25, 2024 Admission HPI (Per Admitting) . The patient is an 88-year-old gentleman retired from the [employer] who presents for surgical treatment of his right hip. Pernell a fairly long history of hip problems had his left hip replaced at [facility] in [place] in 1996. He has done well from this. Over the past several years he has developed pain discomfort stiffness in his right hip. He said use a cane to get around for the past couple months. He is got known back disease and spinal stenosis followed by Dr. Bagley. He did have several injections and a PRP injection which did not help as much. He become more debilitated by the pain. He like to have his hip replaced. The patient does have a significant cardiac history and is got a pacemaker in place. He is followed by [facility] cardiology. Is got an upcoming appointment to see them before surgery. Admission Exam (Per Admitting) . Physical examination reveals a pleasant elderly male. Looks in pretty good health. His HEENT exam is benign. Neck supple no lymphadenopathy lungs clear to auscultation. Heart has a regular rate and rhythm. Abdomen soft nontender nondistended extremities grossly neuro vas intact as follows. Examination the right hip reveal patient walks with the use of a cane. His leg lengths. Pretty equal. Got a very stiff hip with external rotation contracture about 10 degrees. He has pain with attempted internal rotation. He is neurologically intact. No knee effusion. Principal Diagnosis Same as "Discharge Diagnosis" noted below under Discharge Instructions. Discharge Data Procedures Performed Operation Date: 07/20/24 10:40 Actual Procedures p Right Total Hip Arthroplasty, Uncemented(Right) - Abiodun Diana MD Hospital Course (1) Status post right hip replacement: This is a 88 year old patient admitted on 07/20/24 and underwent total hip arthroplasty. He tolerated the procedure well and there were no complications. Transferred to the PACU post op and later to the orthopedic floor for further care. He was given ancef for antibiotic prophylaxis. He was also given COTY stockings, SCDs, and aspirin for DVT prophylaxis. Hemoglobin, hematocrit, and vital signs were monitored during his hospital stay and remained stable. Did not require any blood transfusions. There were no complications during his hospital stay. By post op day #1 the patient was tolerating a regular diet, pain was reasonably controlled with oral pain medicine, and he was participating in physical therapy. On post op day #1 the patient was discharged home and set up with home health care. He was given printed discharge instructions including prescriptions for extra strength tylenol, aspirin, ketorolac, zofran, senokot, tramadol, and flomax. Continue hip precautions. Continue physical therapy, weight bearing as tolerated. Continue COTY stockings. Follow up approximately 2 weeks post op or sooner if there are problems or concerns. Discharge Plan Discharge Items Patient Disposition: Home - Home Health Services Reason For Visit: Right Hip Osteoarthritis Discharge Diagnosis: Right Hip Replacement Activity: Per Instructions section Activity Comment: Follow?obey hip precautions at all times Weightbearing: Full weightbearing Weightbearing Comment: Weightbear as tolerated obeying hip precautions at all times Non-emergency contact: Surgeon Call non-emergency contact if: you have any medication questions Follow-up/Referrals: Trevor Kumar MD [Primary Care Provider] - Diet: Regular Addtl Attending Provider Instructions: ACTIVITY RECOMMENDATIONS: Diet: * You may resume previous diet. Physical Therapy: * Aggressive physical therapy is not usually needed. You will learn to take care of yourself safely and walk. * Follow the "Hip Precautions Instructions." * In some cases, the outreach and education social worker at the hospital will arrange to have a therapist come to your house for the first couple of weeks to help you learn these skills. * You need to practice on your own or with the help of a family member as needed. * When you learn these skills, most of the therapy can be done on your own. Home Exercise: * You were shown a series of exercises in the hospital. Do these exercises three to four times each day including the exercises you were shown in physical therapy. Walking: * Get up and walk several times each day. For the first four weeks, try not to stand or walk for more than one hour at a time. If you do stand or walk for more than one hour, you will not hurt anything, but your leg will likely swell. * As you feel comfortable, you may change from the walker or crutches to a cane and then to independent walking. MEDICATIONS: New Medicine: * You will likely be taking one or more of these medicines: 1. Tramadol - Take, as directed, when you need it, every six hours to control your pain. 2. Aspirin - Thins your blood to lessen the chance of forming a blood clot. * The most common side effects of pain medicine and iron are nausea and constipation. If nausea or constipation is too much of a problem or if you have any questions about your new medicines or doses, call [facility] at . We will try to help you manage these issues. "VERY IMPORTANT TO READ AND REVIEW" Pain: * The immediate post-operative period after hip replacement surgery is often quite painful. * You are given a prescription for pain medicine. You should take it, as directed, when you need it, especially before physical therapy and before going to bed. Pain that interferes with sleep is very common and can last several months. * You will likely need pain medicine for the first two to four weeks. It will not stop all of the pain. The pain will lessen and as you feel better, you may change to milder pain medicine such as Tylenol. * The most common side effects of pain medicine are nausea and constipation, so don't take more than you need. SPECIAL CARE INSTRUCTIONS: TEDs/Elastic Stockings: * The white elastic stockings help limit swelling and prevent blood clots from forming in your legs. The more you wear them, the more they work. * Wear them for six weeks. Incision Site Care: * Remove dressing postoperative day 2 and then shower. Keep direct shower pressure off the incision site. * After showering, cover jose with dry gauze and change daily or more frequently if the dressing is getting saturated with drainage. * May completely stop using bandage if wound is dry and no drainage * Jose are removed between 2 and 3 weeks post-op. If your follow-up appointment is made before 2 weeks, please have your appointment re- scheduled. It is too early to remove the jose. Prevention of Infection: * Take antibiotics one hour before any dental cleaning, dental work, urological procedure, gastrointestinal procedure or any invasive surgery in order to prevent your new joint from getting infected. * You may get the antibiotics from the doctor performing the procedure or you may call our office at before and we will call in a prescription to the pharmacy of your choice. Things to Watch For: * Drainage from the incision site that occurs more than one week after your surgery. * Severely increased leg pain or swelling. * Increased redness at the incision site. * Fever above 102 degrees Fahrenheit. * Unusual chest pain or shortness of breath. * Unusual pain or burning with urination. Call [facility] at with any of the above problems or if you have any questions about your medicines or recovery. FOLLOW UP VISIT: Make an appointment to see your doctor for approximately two weeks after surgery for a progress check and staple removal by calling the office at . Pending Studies at Discharge: No Stand-Alone Forms: My [facility], Smoking Cessation Medications and DC Order Prescriptions: Continued hydrochlorothiazide 12.5 mg capsule 12.5 mg PO DAILY PRN (Reason: Edema) aspirin 81 mg tablet,delayed release (DR/EC) 81 mg PO QPM tramadol 50 mg tablet 50 - 100 mg PO Q6 PRN (Reason: pain) Qty: 40 0RF Rx Instructions: Take as needed for pain ondansetron 4 mg tablet,disintegrating 4 mg PO Q8 PRN (Reason: nausea) Qty: 20 1RF Rx Instructions: Take as needed for nausea sennosides [Senokot] 8.6 mg tablet 8.6 mg PO BID 14 Days Qty: 28 0RF Rx Instructions: Take two times a day to prevent/treat constipation ketorolac 10 mg tablet 10 mg PO Q8H 5 Days Qty: 15 0RF Rx Instructions: Take 3 times per day with food for 5 days to lessen pain and swelling. acetaminophen [Tylenol Extra Strength] 500 mg tablet 1,000 mg PO TID 30 Days Qty: 180 0RF Rx Instructions: Take 3 times per day to lessen pain. aspirin [Kal Low Dose Aspirin] 81 mg tablet,delayed release (DR/EC) 81 mg PO BID 45 Days Qty: 90 0RF Rx Instructions: Take to prevent blood clots. rosuvastatin 20 mg tablet 20 mg PO QAM Qty: 30 enalapril maleate 10 mg tablet 10 mg PO QPM omega-3 fatty acids [Fish Oil Concentrate] 1,000 mg capsule 1,000 mg PO BID Patient Comments: on standby until he gets a new script esomeprazole magnesium [Nexium] 40 mg capsule,delayed release(DR/EC) 40 mg PO DAILY PRN (Reason: Acid Reflux) potassium citrate 10 mEq (1,080 mg) tablet extended release 1,080 mg PO BID 90 Days Qty: 180 3RF gabapentin 300 mg capsule 300 mg PO HS duloxetine 30 mg capsule,delayed release(DR/EC) 30 mg PO BID tamsulosin 0.4 mg capsule 0.4 mg PO QPM metoprolol succinate 25 mg tablet extended release 24 hr 25 mg PO QAM finasteride 5 mg tablet 5 mg PO QPM No Action (DME) Jennifer Munoz Misc See Rx Instructions .MEDSUPPLY Qty: 1 0RF Rx Instructions: As directed Admission Data Admit Date/Time: 07/20/24 11:33 Attending Provider: Abiodun Diana Admit Provider: Abiodun Diana Primary Care Provider: Trevor Kumar Other Interventions: Discharge Summary Assessment (RN) Last Done: 07/21/24 13:24
== END 2024-07-21 14:12 | disposition home health service (06) ==
LOC: 3E 08:48 → ASU 08:48
DX: D64.9 Anemia, unspecified; E78.5 Hyperlipidemia, unspecified; Z79.82 Long term (current) use of aspirin; Z95.0 Presence of cardiac pacemaker; M48.062 Spinal stenosis, lumbar region with neurogenic claudication; I10 Essential (primary) hypertension; R60.0 Localized edema; I25.10 Atherosclerotic heart disease of native coronary artery without angina pectoris; M16.11 Unilateral primary osteoarthritis, right hip; K21.9 Gastro-esophageal reflux disease without esophagitis; M25.751 Osteophyte, right hip; Z79.899 Other long term (current) drug therapy; M65.98 Unspecified synovitis and tenosynovitis, other site